=== PATIENT | female | born 1995 | race American Indian/Alaskan Native ===

== ENCOUNTER 2019-07-20 12:47 | Inpatient (IN) | payer OTHER, MEDICAID ==
[2019-07-20] MEDS ORDERED: Tranexamic Acid 1,000 MG in Sodium Chloride 0.9% 100 ML IV PRN (13:48)
[2019-07-20] MEDS ORDERED: Lactated Ringers 1,000 ML IV ONE (13:48)
[2019-07-20] MEDS ORDERED: Sodium Chloride 0.9% 10 ML Syringe FLUSH PRN (13:48)
[2019-07-20] MEDS ORDERED: Methylergonovine 0.2 MG/1 ML Amp IM PRN (13:48)
[2019-07-20] MEDS ORDERED: Lidocaine 1% 30 ML SDV INJECT PRN (13:48)
[2019-07-20] MEDS ORDERED: Misoprostol 400 MCG (4 X 100 MCG TAB) RECTAL PRN (13:48)
[2019-07-20] MEDS ORDERED: Carboprost Tromethamine 250 MCG/1 ML Amp IM PRN (13:48)
[2019-07-20] MEDS: Lactated Ringers 1,000 ML IV SCH ×2 (14:41→23:04)
[2019-07-20] MEDS: Oxytocin/Normal Saline 30 UNIT/500 ML BAG IV SCH (14:41)
[2019-07-20] MEDS: fentaNYL 100 MCG/2 ML SDV IVPUSH PRN ×2 (19:35→23:02)
[2019-07-20] MEDS: Ondansetron 4 MG/2 ML SDV IVPUSH PRN (23:54)
[2019-07-21] MEDS ORDERED: fentaNYL 100 MCG/2 ML SDV ONE ×2 (00:01→04:35)
[2019-07-21] MEDS ORDERED: EPINEPHrine 1 MG/1 ML Amp ONE ×2 (00:02→04:35)
[2019-07-21] MEDS ORDERED: Sodium Bicarbonate 4.2% 2.5 MEQ/5 ML SDV ONE ×2 (00:03→04:35)
--- NOTE | 2019-07-21 00:26 | PCM.SN ---
- Free Text/Narrative Note: Intrathecal. Sitting position, sterile prep and drape. 1% lidocaine w bicarb for skinwheal to L3 L4 interspace, introducer, 24 ga pencan x 1. Pos CSF, neg heme, neg parasthesia. 15 mcg pf sufenta, 35 mcg pf fentanyl, 0.1 ml 1:1000 pf epi, 04 ml pf ns and 6 mg of 0.75% pf bupivacaine injected after CSF aspiration. Pt to L lateral position. Procedure time 0000 to 0030
[2019-07-21] MEDS ORDERED: Famotidine 20 MG/2 ML SDV IVPUSH ONE (00:37)
[2019-07-21] MEDS: Lactated Ringers 1,000 ML IV SCH ×2 (00:38→04:40)
[2019-07-21] MEDS ORDERED: ePHEDrine 50 MG/ML SDV IVPUSH ONE (01:09)
[2019-07-21] MEDS: Ondansetron 4 MG/2 ML SDV IVPUSH PRN (04:22)
--- NOTE | 2019-07-21 04:53 | PCM.SN ---
- Free Text/Narrative Note: Intrathecal. Sitting position, sterile prep and drape. 1% lidocaine w bicarb for skinwheal to L3 L4 interspace, introducer, 24 ga pencan x 1. Pos CSF, neg heme, neg parasthesia. 15 mcg pf sufenta, 35 mcg pf fentanyl, 0.1 ml 1:1000 pf epi, 04 ml pf ns and 6 mg of 0.75% pf bupivacaine injected after CSF aspiration. Pt to L lateral position. Procedure time 0430 to 0500
[2019-07-21] MEDS ORDERED: Measles, Mumps & Rubella Vaccine 0.5 ML SDV SUBCUT ONE (07:24)
[2019-07-21] MEDS ORDERED: Simethicone 80 MG Tab.Chew PO PRN (07:24)
[2019-07-21] MEDS ORDERED: Oxytocin 10 Units/1 ML SDV IM PRN (07:24)
[2019-07-21] MEDS ORDERED: Diphtheria,Pertussis(Acell),Tetanus Vaccine 0.5 ML SDV IM ONE (07:24)
[2019-07-21] MEDS ORDERED: Benzocaine/Menthol 20%-0.5% Spray 56 GM Canister TOP PRN (07:24)
[2019-07-21] MEDS ORDERED: Sodium Chloride 0.9% 10 ML Syringe FLUSH PRN (07:24)
[2019-07-21] MEDS ORDERED: Zolpidem 5 MG Tab PO PRN (07:24)
[2019-07-21] MEDS: Oxytocin/Normal Saline 30 UNIT/500 ML BAG IV SCH (08:18)
--- NOTE | 2019-07-21 10:16 | PN ---
DATE: 07/20/2019 SUBJECTIVE: The patient's contractions are getting stronger. She is currently on Pitocin. The patient denies any headaches, visual changes, upper abdominal pain, nausea, vomiting, diarrhea, constipation, belly pain, cough, cold symptoms, runny nose, calf pain, or shortness of breath or chest pain. OBJECTIVE: heart tones in the 130s range, felt to be reactive and reassuring with accelerations noted. Tocometer reveals contractions on the average every 2 minutes. Vaginal exam reveals to be 1.5 cm, 75% effaced, negative 1 station, vertex suspected. Vital Signs: Last blood pressure 142/84, heart rate 112. ASSESSMENT: 1. Intrauterine at 38-3/7 weeks by 20-3/7 weeks' ultrasound with now preeclampsia with labs revealing a protein-creatinine ratio of 0.66. Other labs notable for a white cell count of 10.3, hemoglobin 8.7, platelets 304. HELLP labs were negative otherwise. 2. Fever antepartum, questionable cause. At this point in time, no obvious source has elicited itself. We will proceed with a rapid flu to further evaluate as this has been going around the community and further labs done. Urine drug screen was negative. Urine red cells and white cells were 0 to 5 per high-power field on her urine, not suggestive of a bladder infection. PLAN: I did discuss with the patient following clinically and closely at this point in time. We will watch for any signs and symptoms of heart rate concerns and watch her fever curve closely. The patient understands and agrees with the above treatment plan, and we will continue to follow clinically and closely. No signs or symptoms of severe preeclampsia noted at this point. [facility] /[id number]
--- NOTE | 2019-07-21 11:13 | PN ---
DATE: 07/21/2019 SUBJECTIVE: The patient is comfortable with some itching, status post intrathecal. I was called in for concerns with decelerations. OBJECTIVE: heart tones. Intrathecal and at 0015, started having decelerations approximately within 10 minutes of that down into the 70s to 90s with recovery over a 9-minute period. heart tones increasing to a baseline at the current time of dictation at around 150 with 1 acceleration seen. Tocometer reveals contractions every couple of minutes. Pitocin has been stopped. The patient has been repositioned, oxygen has been applied, and IV fluid bolus has been given. Vaginal exam per nurse was changed from pre- intrathecal at 4 cm to 6 cm, 95%, with bulging bag of water noted. INVESTIGATIONS: Labs returned from earlier, and influenza is negative. Protein- creatinine ratio was 0.66. Fevers noted earlier, last temperature 99.2, and then another recheck was 98.1. ASSESSMENT: 1. Intrauterine , now at 38-4/7 weeks by 20-3/7 weeks' ultrasound, complicated by preeclampsia. 2. Fever in the antepartum, that seems to be resolving with no obvious source, in a GBS negative. 3. G1, P0. complicated by being rubella nonimmune with anemia of with hemoglobin 8.7. PLAN: Due to concerns with heart tones, we will continue to follow clinically and closely at this point in time. May consider artificial rupture of membranes in the future. This was discussed with the patient and nurses as well and they will continue to follow closely at this point in time. [facility] /[id number]
--- NOTE | 2019-07-21 11:37 | PN ---
DATE: 07/21/2019 SUBJECTIVE: The patient is comfortable status post intrathecal. Itching minimally. OBJECTIVE: heart tones at current time of dictation in the 140s to 150s with acceleration seen. Tocometer reveals contractions every couple of minutes. Pitocin has been off. Vaginal exam reveals to be 6 to 7 cm, 100% effaced, 0 station, vertex suspected. Artificial rupture of membranes done after discussion with the patient yielding copious amounts of meconium-stained fluid. ASSESSMENT AND PLAN: Intrauterine , now 38 and 4/7 weeks, complicated by preeclampsia. Undergone NST, Pitocin augmentation, intrathecal and artificial rupture of membranes as above. May restart Pitocin if baby tolerates. We will continue to follow clinically and closely at this point in time. No signs or symptoms of severe preeclampsia at this point in time as well. [facility] /[id number]
--- NOTE | 2019-07-21 11:59 | PN ---
DATE: 07/21/2019 I did discuss with the patient meconium stained fluid, diagnosis, and prognosis. We will continue to follow clinically and closely at this point in time. [facility] /[id number]
--- NOTE | 2019-07-21 12:09 | DEL ---
DATE: 07/21/2019 PREOPERATIVE DIAGNOSES: 1. Intrauterine at 38-4/7 weeks by 20-3/7-week ultrasound. 2. Preeclampsia. 3. Group B Streptococcus negative. 4. Contractions. 5. Limited care. 6. Rubella nonimmune. 7. Anemia of , hemoglobin 8.7 upon admission. 8. Fever x1 antepartum. 9. Meconium-stained fluid. 10.Recurrent decelerations versus bradycardia in the second stage of labor prompting vacuum-assisted vaginal delivery. POSTOPERATIVE DIAGNOSES: 1. Intrauterine at 38-4/7 weeks by 20-3/7-week ultrasound - delivered. 2. Preeclampsia. 3. Group B Streptococcus negative. 4. Contractions. 5. Limited care. 6. Rubella nonimmune. 7. Anemia of , hemoglobin 8.7 upon admission. 8. Fever x1 antepartum. 9. Meconium-stained fluid. 10.Recurrent decelerations versus bradycardia in the second stage of labor prompting vacuum-assisted vaginal delivery. 11. hemorrhage with an estimated blood loss of 700 mL. 12.Uterine atony requiring Cytotec 800 mcg rectally. 13.Right-sided vaginal blood vessel bleeding requiring suture ligation. PROCEDURE PERFORMED: 1. On 07/20/2019, NST followed by Pitocin augmentation. 2. On 07/21/2019, artificial rupture of membranes followed by vacuum-assisted vaginal delivery with right-sided vaginal blood vessel suture ligation. ANESTHESIA/ANALGESIA: The patient did receive 2 intrathecals in the first stage of labor. ESTIMATED BLOOD LOSS: 700 mL. FINDINGS: Male, score 8 and 9, weight pending. SUMMARY OF EVENTS: The patient is a 24-year-old, G1, P0, intrauterine at 38-4/7 weeks by 20-3/7-week ultrasound, admitted with contractions and workup for preeclampsia that was positive with no severe features elicited. She did have a fever in the antepartum in the early first stage of labor, this was short lived; however, evaluations were done, no obvious source of fever was noted and it resolved thereafter. Influenza was negative as well as urinalysis. There was no uterine tenderness, calf pain, shortness of breath, chest pain, calf swelling or other concerns elicited. Subsequently, the patient underwent Pitocin augmentation, continued to have cervical change, and on the scientific illustrator of 07/21/2019, underwent artificial rupture of membranes. Received her 2 intrathecals in the first stage of labor. She was found to be complete and I was called to the room. Upon my entry in the room, I donned sterile gown and gloves. The patient started pushing with contractions. there were recurrent decelerations and nearing bradycardia and evans catheter was placed under sterile conditions yielding clear urine. vacuum assisted delivery was then discussed and I discussed risks, benefits, alternatives, and complications of vacuum assisted delivery and her and male partner agreed. with next contraction , Kiwi vacuum was then applied pumped up to green and with gentle pulling with patient pushing- vertex was delivered in a CELSA presentation with anterior-posterior shoulder and rest of the infant delivered without difficulty. vacumm disengaged after delivery of vertex. A vigorous cry was noted. Mouth and nares were suctioned. Cord was doubly clamped and cut, and infant was brought over to the warmer for resuscitation. Approximately 10 mL of cord blood was obtained for labs. Placenta was then delivered with gentle cord traction and fundal massage within 5 minutes. There was noted to be significant bleeding at that point in time and a quick evaluation did reveal right vaginal region with a blood vessel that was bleeding significantly. Subsequently, a 3-0 Vicryl was called for but was unavailable, so 2-0 Vicryl was then used and a [id number] stitch was applied over this vessel and bleeding significantly decreased. Thereafter, fundal massage ensued and continued bleeding was noted with a urine atony, 800 mcg of Cytotec was called for and given rectally, and at that time, bleeding slowed. Pitocin was put at 999 during this time period as well due to the bleeding. We will plan on checking a CBC approximately 6 hours from now at 1300 hours due to her anemia as above and significant blood loss. We will follow for signs and symptoms of anemia otherwise. Other perineum, vagina, and perirectal areas were then examined without any other tears or lacerations. Mother and are currently stable at the time of dictation. [facility] /[id number] [place]
--- NOTE | 2019-07-21 12:38 | OBOUT ---
DATE: 07/20/2019 DATE AND TIME OF NST: 07/20/2019, 1300 to 1320. REASON FOR NST: 1. Intrauterine at 38 and 3/7 weeks confirmed by 20 and 3/7 week ultrasound. 2. Gestational hypertension versus preeclampsia, workup being done. 3. GBS negative. 4. Contractions. 5. Limited care. 6. Rubella nonimmune. 7. G1, P0. NST INTERPRETATION: During this time period, heart tone at baseline is approximately 125 to 130 and there are at least two 15 x 15 beat per minute accelerations, making this strip reactive. It is also noted to be reassuring. Tocometer reveals potential of 5 contractions during this time period felt by patient. ASSESSMENT AND PLAN: 1. Nonstress test, reactive and reassuring. 2. Tocometer with contractions. PLAN: Blood pressure initially 144/100, recheck 139/95, another recheck 141/103. Heart rate is between 105 and 122. O2 sat is 98%. Patient feels afebrile. Patient due to her gestational hypertension with potential for preeclampsia was admitted with PIH panel to be done. She denies any headaches, visual changes, or upper abdominal pain or signs or symptoms of severe preeclampsia. Therefore, we will proceed with lab workup. Her vaginal exam done by nurse shows 1 cm thick, -3 station, vertex suspected, and we will proceed with Pitocin-type augmentation at this point in time. I did discuss plans with the patient. She understands and agrees. For H and P, she was seen yesterday in the clinic. This was fully updated. Exam notable for blood pressure changes as above. PHYSICAL EXAMINATION: HEENT: Head is atraumatic. EOMs intact. PERRLA. No scleral icterus. No obvious otorhinorrhea. Mucous membranes are moist. Neck: No obvious tenderness. Lungs: Clear to auscultation bilaterally. No increased work of breathing. Heart: S1 and S2. Regular rate and rhythm. Abdomen: Gravid. Michael's indeterminate. Nontender, nondistended. Bowel sounds positive. No organomegaly, pulsatile masses, or obvious hernias. No rebound, rigidity, or guarding. Genitourinary: Exam done by nurse as above. Extremities: No peripheral edema. Deep tendon reflexes 2-3/4 and bilaterally and symmetric in the lower extremities. Psychiatric: Mood and affect congruent. Judgment and insight intact. Skin: No cyanosis, clubbing, or jaundice. Pending are the PIH panel investigations. REVIEW OF SYSTEMS: Otherwise fully reviewed and felt to be noncontributory other than the above. PLAN: As above. We will proceed with Pitocin augmentation. Follow clinically and closely. Complete the workup for preeclampsia and watch for any signs and symptoms of severe preeclampsia. Labs did return. Hemoglobin was 8.7 with platelets of 304 and white cell count of 10.3. Due to her anemia with , we will continue to follow clinically and closely at this point in time as well. [facility] /[id number]
[2019-07-21] MEDS: Ibuprofen 800 MG Tab PO PRN ×2 (13:12→21:32)
[2019-07-21] MEDS: Ferrous Sulfate 325 MG Tab PO SCH (13:18)
[2019-07-21] MEDS: Prenatal Multivitamin with Calcium/Folic Acid/Iron Tab PO SCH (13:18)
[2019-07-21] MEDS: Acetaminophen 325 MG Tab PO PRN ×2 (17:16→21:31)
[2019-07-21] MEDS: Docusate Sodium 100 MG Cap PO PRN (21:31)
[2019-07-22] MEDS: Ibuprofen 800 MG Tab PO PRN ×3 (06:15→21:50)
[2019-07-22] MEDS: Ferrous Sulfate 325 MG Tab PO SCH (08:31)
[2019-07-22] MEDS: Acetaminophen 325 MG Tab PO PRN (08:31)
[2019-07-22] MEDS: Prenatal Multivitamin with Calcium/Folic Acid/Iron Tab PO SCH (08:31)
[2019-07-22] MEDS: Docusate Sodium 100 MG Cap PO PRN ×2 (08:31→21:50)
[2019-07-22] MEDS ORDERED: EPINEPHrine 1 MG/1 ML Amp ONE ×2 (10:21→10:25)
[2019-07-22] MEDS ORDERED: Sodium Bicarbonate 4.2% 2.5 MEQ/5 ML SDV ONE ×2 (10:21→10:25)
[2019-07-22] MEDS ORDERED: fentaNYL 100 MCG/2 ML SDV ITHECAL ONE ×2 (10:21→10:25)
--- NOTE | 2019-07-22 16:22 | PN ---
DATE: 07/22/2019 day #1. SUBJECTIVE: The patient is tolerating p.o., ambulating, urinating, passing flatus. She denies any chest pain, shortness of breath, or lightheadedness but notes her heart racing when she is moving around. OBJECTIVE: Vital Signs: Temperature 99.6, heart rate 121, blood pressure 126/71, respiratory rate 16. Lungs: Clear to auscultation. Heart: S1, S2. Regular rate and rhythm but with tachycardia noted over 120 after she got up and back to the bathroom. Abdomen: Firm uterus -2 below umbilicus. Extremities: Trace pedal edema. No calf pain. LABORATORY DATA: White cell count 16.5; hemoglobin 6.7 down from 7, yesterday at 8.7 predelivery; and platelets of 258. ASSESSMENT AND PLAN: day #1, status post spontaneous vaginal delivery in a G1, P0 with preeclampsia. One fever during the antepartum with negative workup and resolved thereafter with hemorrhage with an EBL 700 mL with now anemia and acute blood loss with tachycardia. We will proceed with 2 units of packed red blood cells. Did discuss with the patient risks, benefits, alternatives, and complications of blood transfusion. She understands, agrees, and wished to proceed. Verbal and written consent were obtained and questions were answered. We will proceed with 2 units of packed red blood cells, and as her active bleeding has decreased significantly, we will check a CBC tomorrow, sooner if need be. [facility] /[id number]
[2019-07-23] MEDS: Prenatal Multivitamin with Calcium/Folic Acid/Iron Tab PO SCH (08:07)
[2019-07-23] MEDS: Docusate Sodium 100 MG Cap PO PRN (08:07)
[2019-07-23] MEDS: Ferrous Sulfate 325 MG Tab PO SCH (08:07)
[2019-07-23] MEDS: Ibuprofen 800 MG Tab PO PRN (08:08)
[2019-07-23 08:31] VITALS: BP 129/86; PULSE 88
--- NOTE | 2019-07-25 09:19 | PCM.DEL ---
L & D Note - General Info Date of Service: 07/21/19 - Delivery Note Cervical Ripening Method: Oxytocin Episiotomy Type: None Vacuum Extractor Progress Note - Alternative Labor Strategies Considered Alternative Labor Strategies Considered:: Reports: Yes Strategies Considered:: Reports: Contraction Intensity Adequate, Position Changes Used to Facilitate Rotation & Descent, Empty Bladder, Rest Indications Considered:: Reports: Yes Indications:: Reports: Suspicion of Immediate or Potential Compromise Time Out:: Reports: Yes - Patient Prepared Patient Prepared:: Reports: Yes Informed Consent:: Reports: Verbal Risks: Reports: Yes Risks Include:: Reports: Laceration, Shoulder Dystocia, Maternal Injury, Other ( injury) Anesthesia/Analgesia Adequate:: Reports: Yes - Probability of Success High Probability of Success:: Reports: Yes Weight Estimated:: Reports: AGA Patient Diabetic:: Reports: No Pelvis Adequate:: Reports: Yes Asynclitic:: Reports: No - Application Time Maximum Application Time & Number of Pop-Offs Predetermined:: Reports: Yes ( please see nurses notes) Number of Times Cup Disengaged:: 0 Type of Vacuum Used:: Reports: Cup: Soft (kiwi vaccum) Vacuum Extraction: Successful - Exit Strategy Exit strategy available:: Reports: Yes and resuscitation teams readily available:: Reports: Yes Comments:: vtx splitting labia when vacuum applied-see delivery notes and nurses notes for timing and other details - General Info Date of Service: 07/21/19 - Patient Data Vitals - Most Recent: Last Vital Signs Temp 98.5 F 07/23/19 08:00 Pulse 88 07/23/19 08:00 Resp 16 07/23/19 08:00 BP 129/86 07/23/19 08:00 Pulse Ox 97 07/22/19 19:38 Weight - Most Recent: 74.843 kg Med Orders - Current: Current Medications Discontinued Medications Acetaminophen (Tylenol) 650 mg PO Q4H PRN PRN Reason: Pain (Mild 1-3) and fever Last Admin: 07/22/19 08:31 Dose: 650 mg Benzocaine/Menthol (Dermoplast Pain Relief [place]) 0 gm TOP Q4H PRN PRN Reason: Perineal comfort measures Last Admin: 07/21/19 17:20 Dose: 1 spray Carboprost Tromethamine (Hemabate Ds) 250 mcg IM ASDIRECTED PRN PRN Reason: HEMORRHAGE Diphtheria/Tetanus/Acell Pertussis (Adacel) 0.5 ml IM .ONCE ONE Stop: 07/21/19 07:25 Last Admin: 07/21/19 13:20 Dose: 0.5 ml Docusate Sodium (Colace) 100 mg PO BID PRN PRN Reason: Constipation Last Admin: 07/23/19 08:07 Dose: 100 mg Ephedrine Sulfate (Ephedrine Sulfate) 5 mg IVPUSH ONETIME ONE Stop: 07/21/19 01:10 Last Admin: 07/21/19 01:11 Dose: 5 mg Epinephrine HCl (Adrenalin) Confirm Administered Dose 1 mg .ROUTE .STK-MED ONE Stop: 07/21/19 00:03 Last Admin: 07/21/19 02:20 Dose: Not Given Epinephrine HCl (Adrenalin) Confirm Administered Dose 1 mg .ROUTE .STK-MED ONE Stop: 07/21/19 04:36 Last Admin: 07/21/19 04:55 Dose: Not Given Epinephrine HCl (Adrenalin) 0.1 mg .XX .STK-MED ONE Stop: 07/22/19 10:22 Epinephrine HCl (Adrenalin) 0.1 mg .XX .STK-MED ONE Stop: 07/22/19 10:26 Famotidine (Pepcid) 20 mg IVPUSH ONETIME ONE Stop: 07/21/19 00:38 Last Admin: 07/21/19 01:14 Dose: 20 mg Fentanyl (Sublimaze) 100 mcg IVPUSH Q1H PRN PRN Reason: Pain (moderate 4-6) Last Admin: 07/20/19 23:02 Dose: 100 mcg Fentanyl (Sublimaze) Confirm Administered Dose 100 mcg .ROUTE .STK-MED ONE Stop: 07/21/19 00:02 Last Admin: 07/21/19 02:19 Dose: Not Given Fentanyl (Sublimaze) Confirm Administered Dose 100 mcg .ROUTE .STK-MED ONE Stop: 07/21/19 04:36 Last Admin: 07/21/19 04:56 Dose: Not Given Fentanyl (Sublimaze) 35 mcg ITHECAL .STK-MED ONE Stop: 07/22/19 10:22 Fentanyl (Sublimaze) 35 mcg ITHECAL .STK-MED ONE Stop: 07/22/19 10:26 Ferrous Sulfate (Ferrous Sulfate) 325 mg PO WITHBREAKFAST [facility] Last Admin: 07/23/19 08:07 Dose: 325 mg Lactated Ringer's (Ringers, Lactated) 1,000 mls @ 125 mls/hr IV ASDIRECTED CIRILO Last Admin: 07/21/19 04:40 Dose: 125 mls/hr Oxytocin/Sodium Chloride (Pitocin In Ns 30 Unit/500 Ml) 30 unit in 500 mls @ 2 mls/hr IV TITRATE CIRILO; Protocol Last Titration: 07/21/19 11:25 Dose: 0 mls/hr Lactated Ringer's (Ringers, Lactated) 1,000 mls @ 500 mls/hr IV BOLUS ONE Stop: 07/20/19 15:47 Last Admin: 07/21/19 02:21 Dose: Not Given Tranexamic Acid 1,000 mg/ (Sodium Chloride) 110 mls @ 660 mls/hr IV ONETIME PRN PRN Reason: Bleeding Ibuprofen (Motrin) 800 mg PO Q8H PRN PRN Reason: Mild Pain or Fever Last Admin: 07/23/19 08:08 Dose: 800 mg Influenza Virus Vaccine (Afluria Quad (3yr Up)) 60 mcg IM .ONCE ONE Stop: 07/21/19 14:16 Last Admin: 07/21/19 17:17 Dose: 60 mcg Lidocaine HCl (Xylocaine-Mpf 1%) 30 ml INJECT ASDIRECTED PRN PRN Reason: Perineal Repair Measles/Mumps/Rubella Vaccine Live (M-M-R Ii Vaccine) 0.5 ml SUBCUT .ONCE ONE Stop: 07/21/19 07:25 Last Admin: 07/21/19 13:14 Dose: 0.5 ml Methylergonovine Maleate (Methergine) 0.2 mg IM ASDIRECTED PRN PRN Reason: Hemorrhage Misoprostol (Cytotec) 800 mcg RECTAL ASDIRECTED PRN PRN Reason: Hemorrhage Last Admin: 07/21/19 07:13 Dose: 800 mcg Ondansetron HCl (Zofran) 4 mg IVPUSH Q4H PRN PRN Reason: Nausea/Vomiting Last Admin: 07/21/19 04:22 Dose: 4 mg Oxytocin (Pitocin) 10 unit IM ONETIME PRN PRN Reason: Bleeding Prenat Multivit/[place]borne/Iron/Folic Ac ( Plus Iron) 1 each PO DAILY [facility] Last Admin: 07/23/19 08:07 Dose: 1 each Simethicone (Simethicone) 80 mg PO Q4H PRN PRN Reason: Gas Sodium Bicarbonate (Sodium Bicarbonate 4.2%) Confirm Administered Dose 2.5 meq .ROUTE .STK-MED ONE Stop: 07/21/19 00:04 Last Admin: 07/21/19 02:20 Dose: Not Given Sodium Bicarbonate (Sodium Bicarbonate 4.2%) Confirm Administered Dose 2.5 meq .ROUTE .STK-MED ONE Stop: 07/21/19 04:36 Last Admin: 07/21/19 04:56 Dose: Not Given Sodium Bicarbonate (Sodium Bicarbonate 4.2%) 0.5 meq .XX .STK-MED ONE Stop: 07/22/19 10:22 Sodium Bicarbonate (Sodium Bicarbonate 4.2%) 0.5 meq .XX .STK-MED ONE Stop: 07/22/19 10:26 Sodium Chloride (Saline Flush) 10 ml FLUSH ASDIRECTED PRN PRN Reason: Keep Vein Open Sodium Chloride (Saline Flush) 10 ml FLUSH ASDIRECTED PRN PRN Reason: Keep Vein Open Sufentanil Citrate (Sufenta) Confirm Administered Dose 50 mcg .ROUTE .STK-MED ONE Stop: 07/21/19 00:03 Last Admin: 07/21/19 02:20 Dose: Not Given Sufentanil Citrate (Sufenta) Confirm Administered Dose 50 mcg .ROUTE .STK-MED ONE Stop: 07/21/19 04:36 Last Admin: 07/21/19 04:56 Dose: Not Given Sufentanil Citrate (Sufenta) 15 mcg ITHECAL .STK-MED ONE Stop: 07/22/19 10:22 Sufentanil Citrate (Sufenta) 15 mcg ITHECAL .STK-MED ONE Stop: 07/22/19 10:26 Zolpidem Tartrate (Ambien) 5 mg PO BEDTIME PRN PRN Reason: Insomnia - Problem List Review Problem List Initiated/Reviewed/Updated: Yes
--- NOTE | 2019-07-25 12:21 | DISCH ---
ADMITTING DIAGNOSES: 1. Intrauterine at 38-3/7 weeks by 20-3/7 weeks' ultrasound. 2. Preeclampsia without severe features. 3. Group B Streptococcus negative. 4. Contractions. 5. Limited care. 6. Rubella nonimmune. 7. Anemia of , hemoglobin 8.7. 8. G1, P0. DISCHARGE DIAGNOSES: 1. Intrauterine at 38-4/7 weeks by 20-3/7 weeks' ultrasound- delivered. 2. Preeclampsia without severe features. 3. Group B Streptococcus negative. 4. Contractions. 5. Limited care. 6. Rubella nonimmune. 7. Anemia of , hemoglobin 8.7. 8. G1, P0. 9. Fever in the antepartum x1, resolved. This was in early first stage of labor. No obvious source and resolved thereafter. 10.Meconium-stained fluid. 11.Recurrent decelerations versus bradycardia in the second stage of labor requiring vacuum-assisted vaginal delivery. 12. hemorrhage with an estimated blood loss of 700 mL. 13.Uterine atony, requiring rectal Cytotec 800 mcg for treatment. 14.Right-sided vaginal blood vessel bleeding requiring suture ligation. 15.Anemia of acute blood loss, hemoglobin dropped down to 6.7, requiring 2 units of packed red blood cells with discharge hemoglobin being 8.5. PROCEDURES PERFORMED: NST followed by Pitocin augmentation, artificial rupture of membranes, and vacuum-assisted vaginal delivery with vessel ligation which was done on 07/21/2019. Procedure performed by Neo Welch MD. HISTORY OF PRESENT ILLNESS: Please see H and P. SUMMARY OF HOSPITAL COURSE: The patient was admitted on the above date with the above diagnoses. Had contractions, was noted to have preeclampsia with workup without severe features. She had one fever early in the first stage of labor. Workup was done and flu was negative as well as urinalysis. There were no other symptoms and this resolved. Subsequently had intrathecals placed and went on to have a vacuum-assisted vaginal delivery secondary to recurrent decelerations versus bradycardia in the second stage of labor yielding a male with score 8 and 9, weighing 3725 g (8 pounds 3 ounces). Please see delivery note for further details. day #1, please see progress note. The patient's hemoglobin did drop down to a low of 6.7. Subsequently, 2 units of packed red blood cells were given on 07/22/2019. DISCHARGE EVALUATION: The patient was tolerating p.o., was ambulating, urinating, passing flatus. She denies any headaches, visual changes, or upper abdominal pain. She denies any chest pain, shortness of breath, or lightheadedness. Vitals: Temperature 98.5, heart rate 88, blood pressure 129/86, respiratory rate 16. Lungs: Clear to auscultation bilaterally. Heart: S1, S2. Regular rate and rhythm. Genitourinary: Firm uterus around the umbilicus. Extremities: Trace pedal edema. No calf pain. White cell count 16.1 which has been stable and decreasing, hemoglobin 8.5, and platelets 287. CONDITION ON DISCHARGE COMPARED TO CONDITION ON ADMISSION: Improved. DISCHARGE INSTRUCTIONS: 1. Diet: As tolerated. 2. Activity: No lifting more than 20 pounds. No sit-ups straining, and pelvic rest for the next 6 weeks with immediate return fertility discussed. 3. Reasons to go to the emergency room were discussed with the patient in detail including, but not limited to, temperature greater than 100.4, foul- smelling discharge, red hot tender breasts, or increased vaginal bleeding. DISCHARGE MEDICATIONS: [id number] Tylenol or ibuprofen for pain; iron sulfate 325 b.i.d. x6 weeks, which she has at home, and vitamins x6 weeks. FOLLOWUP: I did discuss following up in 6 weeks as well as following up with her baby on 07/25/2019, and she is to call that morning to make an appointment. Did discuss the importance of followup and ramifications of not doing so as well as reasons to return or go to the emergency room in regard to her infant. She understands and agrees with the above treatment plan. [facility] /[id number]
== END 2019-07-23 11:45 | disposition home or self-care (01) | DRG 806 ==
LOC: DL.OBCHECK 12:47 → UNDOADMOB 13:28 → DL.OB 13:28 → OBSVTOIN 07-21 07:05
PROVIDERS: ADMIT Family Medicine; ATTEND Family Medicine
PROC: 10D07Z6 Extraction of Products of Conception, Vacuum, Via Natural or Artificial Opening (ICD-10-PCS; principal; 2019-07-21)
PROC: 30233N1 Transfusion of Nonautologous Red Blood Cells into Peripheral Vein, Percutaneous Approach (ICD-10-PCS; 2019-07-22)
DX: O14.04 Mild to moderate pre-eclampsia, complicating childbirth (principal); D62 Acute posthemorrhagic anemia; Z37.0 Single live birth; O99.02 Anemia complicating childbirth; O77.0 Labor and delivery complicated by meconium in amniotic fluid; O72.1 Other immediate postpartum hemorrhage; Z3A.38 38 weeks gestation of pregnancy
CPT/HCPCS: 36415; 36430; 59025; 59409; 80305-QW; 81001; 81003; 82565; 82570; 83615; 84156; 84450; 84460; 84520; 84550; 85027; 86850; 86900; 86901; 86920; 86922; 87804; 90471; 90686; 90707; 90715; A9270-GY; G0008; J0171; J2405; J2590; J3010; J3490; J7120; P9016

== ENCOUNTER 2019-12-01 00:19 | Emergency (ER) | payer BC, MEDICAID ==
[2019-12-01 00:35] VITALS: BP 131/76; PULSE 124
--- NOTE | 2019-12-01 01:05 | EDM.PDOC ---
ED HPI GENERAL MEDICAL PROBLEM - General Chief Complaint: Upper Extremity Injury/Pain Stated Complaint: SLIPPED ON STAIRS, HURT BROKE LEFT WRIST PER PT Time Seen by Provider: 12/01/19 00:20 Source of Information: Reports: Patient History Limitations: Reports: No Limitations - History of Present Illness INITIAL COMMENTS - FREE TEXT/NARRATIVE: ED with c/o pain to left wrist after falling and slipping down 3 stairs. Did not hit head . Admits ETOH tonight - Related Data Allergies Allergy/AdvReac Type Severity Reaction Status Date / Time No Known Allergies Allergy Verified 12/01/19 00:31 Home Meds: Home Meds . 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 ED EXAM, GENERAL - Physical Exam Exam: See Below Exam Limited By: No Limitations General Appearance: Alert, Mild Distress Eye Exam: Bilateral Eye: EOMI Ears: Normal External Exam Nose: Normal Inspection Throat/Mouth: Normal Inspection Head: Atraumatic, Normocephalic Neck: Normal Inspection Respiratory/Chest: No Respiratory Distress, Lungs Clear Peripheral Pulses: 2+: Radial (L) GI/Abdominal: Normal Bowel Sounds Back Exam: Normal Inspection Neurological: Alert, Oriented ED TRAUMA EXTREMITY PROCEDURES - Splinting Left Upper Extremity Pre-Procedure NV Status: Normal Post-Procedure NV Status: Normal Splint Material: Fiberglass Splint Design: Volar Provider Post-Splint Application NV Check: NV Status Normal Course - Vital Signs Last Recorded V/S: Last Vital Signs Temp 99.3 F 12/01/19 00:22 Pulse 124 H 12/01/19 00:22 Resp 16 12/01/19 00:22 BP 131/76 12/01/19 00:22 Pulse Ox 95 12/01/19 00:22 - Orders/Labs/Meds Meds: Medications Discontinued Medications Generic Name Dose Route Start Last Admin Trade Name Maryanne PRN Reason Stop Dose Admin Ibuprofen 600 mg 12/01/19 01:20 12/01/19 01:32 Motrin PO 12/01/19 01:21 600 mg ONETIME ONE Administration - Radiology Interpretation Free Text/Narrative:: fx left wrist, see report Departure - Departure Time of Disposition: 01:05 Disposition: Home, Self-Care 01 Condition: Good Clinical Impression: Left wrist fracture Qualifiers: Encounter type: initial encounter Fracture type: closed Qualified Code(s): S62.102A - Fracture of unspecified carpal bone, left wrist, initial encounter for closed fracture - Discharge Information *PRESCRIPTION DRUG MONITORING PROGRAM REVIEWED*: No *COPY OF PRESCRIPTION DRUG MONITORING REPORT IN PATIENT SHEFALI: No Instructions: Wrist Fracture Treated With Immobilization, [id number] Forms: ED Department Discharge Additional Instructions: ice elevate rest follow up ortho clinic in [place] on thursday, call to schedule appointment for cast placement, follow up compacted, angulated distal radius and styloid fracture of left wrist. alternate tylenol 650mg and ibuprofen 650mg every 4 hours as needed for discomfort Sepsis Event Note - Evaluation Sepsis Screening Result: No Definite Risk - Focused Exam Vital Signs: Vital Signs Temp Pulse Resp BP Pulse Ox 12/01/19 00:22 99.3 F 124 H 16 131/76 95 Date Exam was Performed: 12/01/19 Time Exam was Performed: 06:46
[2019-12-01] MEDS ORDERED: Ibuprofen 600 MG Tab PO ONE (01:20)
== END 2019-12-01 01:36 | disposition home or self-care (01) ==
LOC: DL.ED 00:19
DX: S52.502A Unspecified fracture of the lower end of left radius, initial encounter for closed fracture (principal); S52.612A Displaced fracture of left ulna styloid process, initial encounter for closed fracture; W10.8XXA Fall (on) (from) other stairs and steps, initial encounter
CPT/HCPCS: 29125; 73070; 73110; 99283; A9270

== ENCOUNTER 2021-01-09 16:24 | Emergency (ER) | payer MEDICAID, OTHER ==
[2021-01-09] MEDS ORDERED: Ondansetron 4 MG Tab.DIS PO ONE (16:25)
[2021-01-09] MEDS ORDERED: Acetaminophen/HYDROcodone 325-10 MG Tab PO ONE (16:25)
[2021-01-09] MEDS ORDERED: HYDROmorphone 1 MG/ML Syringe IVPUSH ONE (17:02)
[2021-01-09] MEDS ORDERED: Lactated Ringers 1,000 ML IV ONE ×2 (17:02→19:14)
[2021-01-09] MEDS ORDERED: diphenhydrAMINE 50 MG/ML SDV IVPUSH ONE (17:02)
--- NOTE | 2021-01-09 17:02 | EDM.PDOC ---
ED HPI GENERAL MEDICAL PROBLEM - General Chief Complaint: Abdominal Pain Stated Complaint: AMBULANCE Time Seen by Provider: 01/09/21 17:01 Source of Information: Reports: Patient History Limitations: Reports: No Limitations - History of Present Illness INITIAL COMMENTS - FREE TEXT/NARRATIVE: Patient comes emergency department today from the [facility] clinic for further evaluation of abdominal pain nausea and vomiting. For the past 3 to 4 days the patient has right upper quadrant pain nausea and vomiting. She was seen up at [facility] earlier today she had a normal amylase and lipase and right upper quadrant pain nausea and vomiting and she was sent to the emergency department for further evaluation of acute pancreatitis after discussion with the provider from [facility] clinic who contacted me with the above concerns. Patient arrives complaining of right upper quadrant pain nausea and vomiting. No diarrhea. She has a history of 3 to 4 days of these symptomology. She has no fever no chills. No chest pain no shortness of breath or difficulty breathing. No cough or congestion. No hematuria dysuria urinary frequency. No black or tarry stools. No flank pain. She does feel lightheaded upon standing. She does admit to history of alcohol use but nothing recently. She has never had pancreatitis in the past. Upper Abdomen Pain Score (Numeric/FACES): 5 - Related Data Allergies Allergy/AdvReac Type Severity Reaction Status Date / Time No Known Allergies Allergy Verified 01/09/21 16:37 Home Meds: Home Meds . 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 History: Reports: None Neurological History: Reports: None Psychiatric History: Reports: Anxiety, Depression Endocrine/Metabolic History: Reports: None Hematologic History: Reports: Anemia Oncologic (Cancer) History: Reports: None Dermatologic History: Reports: None - Infectious Disease History Infectious Disease History: Reports: Chicken Pox - Past Surgical History Head Surgeries/Procedures: Reports: None Musculoskeletal Surgical History: Reports: Other (See Below) Other Musculoskeletal Surgeries/Procedures:: arm Social & Family History - Family History Family Medical History: No Pertinent Family History - Tobacco Use Tobacco Use Status *Q: Current Every Day Tobacco User Years of Tobacco use: 1 Packs/Tins Daily: 0.5 Second Hand Smoke Exposure: No - Caffeine Use Caffeine Use: Reports: Coffee, Soda - Recreational Drug Use Recreational Drug Use: No - Sexual History Sexual History: Reports: Sexually Active - Living Situation & Occupation Living situation: Reports: with Family ED ROS GENERAL - Review of Systems Review Of Systems: Comprehensive ROS is negative, except as noted in HPI. ED EXAM, GI/ABD - Physical Exam Exam: See Below Exam Limited By: No Limitations General Appearance: Alert, WD/WN, Mild Distress Eyes: Bilateral: EOMI Ears: Normal External Exam Nose: Normal Inspection Throat/Mouth: No: Normal Inspection (oral mucos is quite dry. ) Head: Atraumatic, Normocephalic Neck: Normal Inspection Respiratory/Chest: No Respiratory Distress, Lungs Clear, No Accessory Muscle Use, Chest Non-Tender Cardiovascular: Normal Peripheral Pulses, Regular Rate, Rhythm GI/Abdominal Exam: Normal Bowel Sounds, Soft, No Distention, Tender (She is exquisitely tender in the right upper quadrant with a positive Laughlin sign.). No: Distended, Guarding, Rigid, Rebound Back Exam: Normal Inspection Extremities: Normal Inspection, No Pedal Edema Neurological: Alert, Oriented, Normal Cognition, No Motor/Sensory Deficits Psychiatric: Normal Affect, Normal Mood Skin Exam: Warm, Dry, Intact, Normal Color Course - Vital Signs Last Recorded V/S: Last Vital Signs Temp 97.4 F 01/09/21 20:19 Pulse 111 H 01/09/21 20:19 Resp 20 01/09/21 20:19 BP 90/64 01/09/21 20:19 Pulse Ox 97 01/09/21 20:19 - Orders/Labs/Meds Labs: Laboratory Tests 01/09/21 01/09/21 01/09/21 Range/Units 17:13 17:13 17:13 WBC 7.3 (5.0-10.0) 10^3/uL RBC 4.15 L (4.2-5.4) 10^6/uL Hgb 11.8 L D (12.0-16.0) g/dL Hct 37.5 (37.0-47.0) % MCV 90.4 D (80-100) fL MCH 28.4 (27.0-34.0) pg MCHC 31.5 L (33.0-35.0) g/dL Plt Count 391 D (150-450) 10^3/uL Neut % (Auto) 66.5 (42.2-75.2) % Lymph % (Auto) 26.4 (20.5-50.1) % Griggs % (Auto) 6.2 (2-8) % Eos % (Auto) 0.5 L (1.0-3.0) % Baso % (Auto) 0.4 (0.0-1.0) % Sodium 142 (136-145) mmol/L Potassium 4.1 (3.5-5.1) mmol/L Chloride 107 (98-107) mmol/L Carbon Dioxide 22 (21-32) mmol/L Anion Gap 17.1 H (7-13) mEq/L BUN 12 (7-18) mg/dL Creatinine 0.78 (0.55-1.02) mg/dL Est Cr Clr Drug Dosing 91.21 mL/min Estimated GFR (MDRD) > 60 BUN/Creatinine Ratio 15.4 (No establ ref range) Glucose 105 H (70-99) mg/dL Lactic Acid 1.8 (0.4-2.0) mmol/L Calcium 8.7 (8.5-10.1) mg/dL Total Bilirubin 0.6 (0.2-1.0) mg/dL AST 55 H (15-37) U/L ALT 69 H (14-59) U/L Alkaline Phosphatase 65 (46-116) U/L C-Reactive Protein 0.7 (0.0-0.9) mg/dL Total Protein 6.8 (6.4-8.2) g/dL Albumin 3.3 L (3.4-5.0) g/dL Globulin 3.5 Albumin/Globulin Ratio 0.94 Lipase 55 L (73-393) U/L Urine Color (YELLOW) Urine Appearance (CLEAR) Urine pH (5.0-9.0) Ur Specific Sigel (1.005-1.030) Urine Protein (NEGATIVE) Urine Glucose (UA) (NEGATIVE) Urine Ketones (NEGATIVE) Urine Occult Blood (NEGATIVE) Urine Nitrite (NEGATIVE) Urine Bilirubin (NEGATIVE) Urine Urobilinogen (0.2-1.0) mg/dL Ur Leukocyte Esterase (NEGATIVE) Urine RBC /HPF Urine WBC (0-5/HPF) /HPF Ur Epithelial Cells (NOT SEEN) /HPF Amorphous Sediment (NOT SEEN) /HPF Urine Bacteria (0-FEW/HPF) /HPF Urine Mucus (NOT SEEN) /LPF Urine HCG, Qual Urine Opiates Screen (NEGATIVE) Ur Oxycodone Screen (NEGATIVE) Urine Methadone Screen (NEGATIVE) Ur Barbiturates Screen (NEGATIVE) U Tricyclic Antidepress (NEGATIVE) Ur Phencyclidine Scrn (NEGATIVE) Ur Amphetamine Screen (NEGATIVE) U Methamphetamines Scrn (NEGATIVE) Urine MDMA Screen (NEGATIVE) U Benzodiazepines Scrn (NEGATIVE) Urine Cocaine Screen (NEGATIVE) U Marijuana (THC) Screen (NEGATIVE) 01/09/21 01/09/21 01/09/21 Range/Units 18:52 18:52 18:52 WBC (5.0-10.0) 10^3/uL RBC (4.2-5.4) 10^6/uL Hgb (12.0-16.0) g/dL Hct (37.0-47.0) % MCV (80-100) fL MCH (27.0-34.0) pg MCHC (33.0-35.0) g/dL Plt Count (150-450) 10^3/uL Neut % (Auto) (42.2-75.2) % Lymph % (Auto) (20.5-50.1) % Griggs % (Auto) (2-8) % Eos % (Auto) (1.0-3.0) % Baso % (Auto) (0.0-1.0) % Sodium (136-145) mmol/L Potassium (3.5-5.1) mmol/L Chloride (98-107) mmol/L Carbon Dioxide (21-32) mmol/L Anion Gap (7-13) mEq/L BUN (7-18) mg/dL Creatinine (0.55-1.02) mg/dL Est Cr Clr Drug Dosing mL/min Estimated GFR (MDRD) BUN/Creatinine Ratio (No establ ref range) Glucose (70-99) mg/dL Lactic Acid (0.4-2.0) mmol/L Calcium (8.5-10.1) mg/dL Total Bilirubin (0.2-1.0) mg/dL AST (15-37) U/L ALT (14-59) U/L Alkaline Phosphatase (46-116) U/L C-Reactive Protein (0.0-0.9) mg/dL Total Protein (6.4-8.2) g/dL Albumin (3.4-5.0) g/dL Globulin Albumin/Globulin Ratio Lipase (73-393) U/L Urine Color Dark yellow (YELLOW) Urine Appearance Slightly cloudy (CLEAR) Urine pH 6.0 (5.0-9.0) Ur Specific Sigel >= 1.030 (1.005-1.030) Urine Protein 100 H (NEGATIVE) Urine Glucose (UA) Negative (NEGATIVE) Urine Ketones Negative (NEGATIVE) Urine Occult Blood Negative (NEGATIVE) Urine Nitrite Negative (NEGATIVE) Urine Bilirubin Small H (NEGATIVE) Urine Urobilinogen 1.0 (0.2-1.0) mg/dL Ur Leukocyte Esterase Negative (NEGATIVE) Urine RBC 0-5 /HPF Urine WBC 0-5 (0-5/HPF) /HPF Ur Epithelial Cells Moderate H (NOT SEEN) /HPF Amorphous Sediment Few (NOT SEEN) /HPF Urine Bacteria Few (0-FEW/HPF) /HPF Urine Mucus Moderate H (NOT SEEN) /LPF Urine HCG, Qual Negative Urine Opiates Screen Positive H (NEGATIVE) Ur Oxycodone Screen Negative (NEGATIVE) Urine Methadone Screen Negative (NEGATIVE) Ur Barbiturates Screen Negative (NEGATIVE) U Tricyclic Antidepress Negative (NEGATIVE) Ur Phencyclidine Scrn Negative (NEGATIVE) Ur Amphetamine Screen Negative (NEGATIVE) U Methamphetamines Scrn Negative (NEGATIVE) Urine MDMA Screen Negative (NEGATIVE) U Benzodiazepines Scrn Negative (NEGATIVE) Urine Cocaine Screen Negative (NEGATIVE) U Marijuana (THC) Screen Negative (NEGATIVE) Meds: Medications Discontinued Medications Generic Name Dose Route Start Last Admin Trade Name Maryanne PRN Reason Stop Dose Admin Hydrocodone Bitart/Acetaminophen Confirm 01/09/21 20:27 01/09/21 20:42 Acetaminophen/Hydrocodone 325-10 Mg Tab Administered 01/09/21 20:28 Not Given Dose 3 tab .ROUTE .STK-MED ONE Diphenhydramine HCl 25 mg 01/09/21 17:02 01/09/21 17:19 Diphenhydramine 50 Mg/Ml Sdv IVPUSH 01/09/21 17:03 25 mg ONETIME ONE Administration Hydromorphone HCl 1 mg 01/09/21 17:02 01/09/21 17:20 Hydromorphone 1 Mg/Ml Syringe IVPUSH 01/09/21 17:03 1 mg ONETIME ONE Administration Lactated Ringer's 1,000 mls @ 1,000 mls/hr 01/09/21 17:02 01/09/21 17:20 Ringers, Lactated IV 01/09/21 18:01 1,000 mls/hr .BOLUS ONE Administration Lactated Ringer's 1,000 mls @ 1,000 mls/hr 01/09/21 19:14 01/09/21 19:21 Ringers, Lactated IV 01/09/21 20:13 1,000 mls/hr .BOLUS ONE Administration Ondansetron HCl 4 mg 01/09/21 18:56 01/09/21 19:02 Ondansetron 4 Mg/2 Ml Sdv IV 01/09/21 18:57 4 mg ONETIME ONE Administration Ondansetron HCl Confirm 01/09/21 20:27 01/09/21 20:42 Ondansetron 4 Mg Tab.Dis Administered 01/09/21 20:28 Not Given Dose 12 [facility] - Re-Assessments/Exams Free Text/Narrative Re-Assessment/Exam: IV had been previously established. IV 1 L LR wide open. Benadryl for nausea. Dilaudid for abdominal pain 1 mg. Laboratory evaluation with a normal CBC, WBC 7.3, hemoglobin 11.8, platelets 391. CMP with a mild elevated AST at 55, ALT 69, T bili normal at 0.6. Normal creatinine. C-reactive protein is negative at 0.7. Her lipase is 55. This discounts the concern for pancreatitis. She has quite concentrated urine with 100 protein. No ketones. Noninfectious appearing. Her hCG is negative. Patient did have a little bit more nausea and vomiting which was resolved with Zofran. Her pain is completely resolved after the above therapy. Reexamination of the abdomen shows a soft nontender nondistended abdomen. Negative Laughlin sign. This is really the sequelae of biliary colic. I see no signs that the patient needs emergent evaluation of her gallbladder such as fever elevated T bili or leukocytosis. We will treat her symptomatically at this time and have her follow-up closely in the primary care setting for an ultrasound of her gallbladder. Anything new or worse she is to recheck and we will consider ultrasound of her gallbladder at that time. Discharge directions as below are explained to the patient she was comfortable with this plan and her questions were answered. Departure - Departure Time of Disposition: 18:42 Disposition: Home, Self-Care 01 Clinical Impression: Biliary colic - Discharge Information Instructions: Biliary Colic, Adult, Nausea and Vomiting, Adult, [id number], Abdominal Pain, Adult, [id number], Gallbladder Eating Plan Forms: ED Department Discharge Additional Instructions: Increase fluids over the next few days. Tylenol and or Ibuprofen as needed for pain. Diet without fat rich or spicy foods. Simple diet. Bananas applesauce toast and yogurt If pain not controlled with above. [place] 1 tablet every 4 hrs with food as needed for pain. Caution sedation. RX given to the patient. Contact your PCP tomorrow to get a gallbladder US as an outpatient. Return to the ED if new or worsening symptoms. Sepsis Event Note (ED) - Evaluation Sepsis Screening Result: No Definite Risk - Focused Exam Vital Signs: Vital Signs Temp Pulse Resp BP Pulse Ox 01/09/21 20:19 97.4 F 111 H 20 90/64 97
[2021-01-09 17:37] LABS: ANION GAP 17.1 mEq/L (7-13); CHLORIDE,CL 107 mmol/L (98-107); SODIUM,NA 142 mmol/L (136-145)
[2021-01-09] MEDS ORDERED: Ondansetron 4 MG/2 ML SDV IV ONE (18:56)
[2021-01-09 20:20] VITALS: BP 90/64; PULSE 111
[2021-01-09] MEDS ORDERED: Acetaminophen/HYDROcodone 325-10 MG Tab ONE (20:27)
[2021-01-09] MEDS ORDERED: Ondansetron 4 MG Tab.DIS ONE (20:27)
== END 2021-01-09 20:45 | disposition home or self-care (01) ==
LOC: DL.ED 16:24
DX: K80.50 Calculus of bile duct without cholangitis or cholecystitis without obstruction (principal); Z72.0 Tobacco use
CPT/HCPCS: 36415; 80053; 80305; 81001; 81025; 83605; 83690; 85025; 86140; 96374; 96375; 99284; A9270; J1170; J1200; J2405; J7120; 99283

== ENCOUNTER 2021-01-12 15:17 | Emergency (ER) | payer MEDICAID ==
[2021-01-12 15:54] VITALS: BP 105/88; PULSE 114
== END 2021-01-12 16:04 | disposition left against medical advice (07) ==
LOC: DL.ED 15:17
DX: R00.0 Tachycardia, unspecified (principal); Z53.21 Procedure and treatment not carried out due to patient leaving prior to being seen by health care provider

== ENCOUNTER 2021-01-18 09:40 | Emergency (ER) | payer MEDICAID ==
[2021-01-18 09:57] VITALS: BP 130/70; PULSE 120
--- NOTE | 2021-01-18 10:00 | EDM.PDOC ---
ED HPI GENERAL MEDICAL PROBLEM - General Stated Complaint: STOMACH PAIN Time Seen by Provider: 01/18/21 09:50 Source of Information: Reports: Patient History Limitations: Reports: No Limitations - History of Present Illness INITIAL COMMENTS - FREE TEXT/NARRATIVE: This 25 yo female patient reports to the ED due to left upper quadrant abdominal pain. The patient reports she has had similar symptoms over the past 2-3 weeks, but symptoms got worse last night to the point that the patient reports difficulties breathing. The patient reports she was seen at the [facility] for her symptoms, had an ultrasound on her gallbladder and is supposed to be having some additional studies. The patient does not know of any lab results and is not sure what additional studies may be ordered. The patient also reports she has been having vision changes in her left eye every other day for the past week. The patient also reports she has mentioned these symptoms, but nothing has been done for them. Onset: Other Duration: Week(s): (2-3 ), Intermittent Location: Reports: Abdomen (LUQ) Quality: Reports: Ache, Sharp Severity: Moderate Improves with: Reports: None Worsens with: Reports: None Context: Reports: Other Associated Symptoms: Reports: No Other Symptoms Left Lower Abdomen Pain Score (Numeric/FACES): 5 - Related Data Allergies Allergy/AdvReac Type Severity Reaction Status Date / Time No Known Allergies Allergy Verified 01/18/21 09:57 Home Meds: Home Meds . 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: Musculoskeletal History: Reports: None Neurological History: Reports: None Psychiatric History: Reports: Anxiety, Depression Endocrine/Metabolic History: Reports: None Hematologic History: Reports: Anemia Oncologic (Cancer) History: Reports: None Dermatologic History: Reports: None - Infectious Disease History Infectious Disease History: Reports: Chicken Pox - Past Surgical History Head Surgeries/Procedures: Reports: None Musculoskeletal Surgical History: Reports: Other (See Below) Other Musculoskeletal Surgeries/Procedures:: arm Social & Family History - Family History Family Medical History: No Pertinent Family History - Caffeine Use Caffeine Use: Reports: Soda - Sexual History Sexual History: Reports: Sexually Active - Living Situation & Occupation Living situation: Reports: with Family ED ROS GENERAL - Review of Systems Review Of Systems: Comprehensive ROS is negative, except as noted in HPI. ED EXAM, GI/ABD - Physical Exam Exam: See Below Exam Limited By: No Limitations General Appearance: Alert, WD/WN, Moderate Distress Eyes: Bilateral: Normal Appearance, EOMI Ears: Normal External Exam, Normal Canal, Hearing Grossly Normal, Normal TMs Nose: Normal Inspection, Normal Mucosa, No Blood Throat/Mouth: Normal Inspection, Normal Lips, Normal Teeth, Normal Gums, Normal Oropharynx, Normal Voice, No Airway Compromise Head: Atraumatic, Normocephalic Neck: Normal Inspection, Supple, Non-Tender, Full Range of Motion Respiratory/Chest: No Respiratory Distress, Lungs Clear, Normal Breath Sounds, No Accessory Muscle Use, Chest Non-Tender Cardiovascular: Normal Peripheral Pulses, Regular Rate, Rhythm, No Edema, No Gallop, No JVD, No Murmur, No Rub GI/Abdominal Exam: Normal Bowel Sounds, Tender (epigastric area and left upper quadrant) (Female) Exam: Deferred Rectal (Female) Exam: Deferred Back Exam: Normal Inspection, Full Range of Motion, NT Extremities: Normal Inspection, Normal Range of Motion, Non-Tender, Normal Capillary Refill, No Pedal Edema Neurological: Alert, Oriented, CN II-XII Intact, Normal Cognition, Normal Gait, Normal Reflexes, No Motor/Sensory Deficits Psychiatric: Normal Affect, Normal Mood Skin Exam: Warm, Dry, Intact, Normal Color, No Rash Lymphatic: No Adenopathy #1 Interpretation EKG Date: 01/18/21 Time: 10:04 Rhythm: Other (sinus Tach) [place]: Normal P-Wave: Present QRS: Normal ST-T: Normal QT: Normal Comparison: NA - No Prior EKG Course - Vital Signs Last Recorded V/S: Last Vital Signs Temp 98.0 F 01/18/21 09:55 Pulse 120 H 01/18/21 09:55 Resp 18 01/18/21 09:55 BP 130/70 01/18/21 09:55 Pulse Ox 100 01/18/21 09:55 - Orders/Labs/Meds Orders: Active Orders 24 hr Category Date Time Status EKG Documentation Completion [RC] STAT Care 01/18/21 09:53 Active Labs: Laboratory Tests 0701/18/21 01/18/21 Range/Units 09:45 09:45 09:45 WBC (5.0-10.0) 10^3/uL RBC (4.2-5.4) 10^6/uL Hgb (12.0-16.0) g/dL Hct (37.0-47.0) % MCV (80-100) fL MCH (27.0-34.0) pg MCHC (33.0-35.0) g/dL Plt Count (150-450) 10^3/uL Neut % (Auto) (42.2-75.2) % Lymph % (Auto) (20.5-50.1) % [place] % (Auto) (2-8) % Eos % (Auto) (1.0-3.0) % Baso % (Auto) (0.0-1.0) % Sodium (136-145) mmol/L Potassium (3.5-5.1) mmol/L Chloride (98-107) mmol/L Carbon Dioxide (21-32) mmol/L Anion Gap (7-13) mEq/L BUN (7-18) mg/dL Creatinine (0.55-1.02) mg/dL Est Cr Clr Drug Dosing mL/min Estimated GFR (MDRD) BUN/Creatinine Ratio (No establ ref range) Glucose (70-99) mg/dL Calcium (8.5-10.1) mg/dL Total Bilirubin (0.2-1.0) mg/dL AST (15-37) U/L ALT (14-59) U/L Alkaline Phosphatase (46-116) U/L Troponin I High Sens (<=51) pg/mL Total Protein (6.4-8.2) g/dL Albumin (3.4-5.0) g/dL Globulin Albumin/Globulin Ratio Amylase (25-115) U/L Lipase (73-393) U/L Urine Color Yellow (YELLOW) Urine Appearance Clear (CLEAR) Urine pH 7.0 (5.0-9.0) Ur Specific [place] 1.025 (1.005-1.030) Urine Protein Trace H (NEGATIVE) Urine Glucose (UA) Negative (NEGATIVE) Urine Ketones Negative (NEGATIVE) Urine Occult Blood Negative (NEGATIVE) Urine Nitrite Negative (NEGATIVE) Urine Bilirubin Negative (NEGATIVE) Urine Urobilinogen 1.0 (0.2-1.0) mg/dL Ur Leukocyte Esterase Negative (NEGATIVE) Urine RBC Not seen /HPF Urine WBC 0-5 (0-5/HPF) /HPF Ur Epithelial Cells Many H (NOT SEEN) /HPF Urine Bacteria Few (0-FEW/HPF) /HPF Urine Mucus Many H (NOT SEEN) /LPF Urine HCG, Qual Negative Urine Opiates Screen Negative (NEGATIVE) Ur Oxycodone Screen Negative (NEGATIVE) Urine Methadone Screen Negative (NEGATIVE) Ur Barbiturates Screen Negative (NEGATIVE) U Tricyclic Antidepress Negative (NEGATIVE) Ur Phencyclidine Scrn Negative (NEGATIVE) Ur Amphetamine Screen Negative (NEGATIVE) U Methamphetamines Scrn Negative (NEGATIVE) Urine MDMA Screen Negative (NEGATIVE) U Benzodiazepines Scrn Negative (NEGATIVE) Urine Cocaine Screen Negative (NEGATIVE) U Marijuana (THC) Screen Negative (NEGATIVE) 01/18/21 01/18/21 Range/Units 10:04 10:04 WBC 6.8 (5.0-10.0) 10^3/uL RBC 4.48 (4.2-5.4) 10^6/uL Hgb 12.3 (12.0-16.0) g/dL Hct 39.3 (37.0-47.0) % MCV 87.7 (80-100) fL MCH 27.5 (27.0-34.0) pg MCHC 31.3 L (33.0-35.0) g/dL Plt Count 364 (150-450) 10^3/uL Neut % (Auto) 60.6 (42.2-75.2) % Lymph % (Auto) 28.7 (20.5-50.1) % [place] % (Auto) 7.6 (2-8) % Eos % (Auto) 2.1 (1.0-3.0) % Baso % (Auto) 1.0 (0.0-1.0) % Sodium 141 (136-145) mmol/L Potassium 4.2 (3.5-5.1) mmol/L Chloride 106 (98-107) mmol/L Carbon Dioxide 24 (21-32) mmol/L Anion Gap 15.2 H (7-13) mEq/L BUN 12 (7-18) mg/dL Creatinine 0.76 (0.55-1.02) mg/dL Est Cr Clr Drug Dosing 93.61 mL/min Estimated GFR (MDRD) > 60 BUN/Creatinine Ratio 15.8 (No establ ref range) Glucose 116 H (70-99) mg/dL Calcium 8.3 L (8.5-10.1) mg/dL Total Bilirubin 0.6 (0.2-1.0) mg/dL AST 59 H (15-37) U/L ALT 88 H (14-59) U/L Alkaline Phosphatase 76 (46-116) U/L Troponin I High Sens 61 H* (<=51) pg/mL Total Protein 6.5 (6.4-8.2) g/dL Albumin 3.4 (3.4-5.0) g/dL Globulin 3.1 Albumin/Globulin Ratio 1.1 Amylase 24 L (25-115) U/L Lipase 117 (73-393) U/L Urine Color (YELLOW) Urine Appearance (CLEAR) Urine pH (5.0-9.0) Ur Specific [place] (1.005-1.030) Urine Protein (NEGATIVE) Urine Glucose (UA) (NEGATIVE) Urine Ketones (NEGATIVE) Urine Occult Blood (NEGATIVE) Urine Nitrite (NEGATIVE) Urine Bilirubin (NEGATIVE) Urine Urobilinogen (0.2-1.0) mg/dL Ur Leukocyte Esterase (NEGATIVE) Urine RBC /HPF Urine WBC (0-5/HPF) /HPF Ur Epithelial Cells (NOT SEEN) /HPF Urine Bacteria (0-FEW/HPF) /HPF Urine Mucus (NOT SEEN) /LPF Urine HCG, Qual Urine Opiates Screen (NEGATIVE) Ur Oxycodone Screen (NEGATIVE) Urine Methadone Screen (NEGATIVE) Ur Barbiturates Screen (NEGATIVE) U Tricyclic Antidepress (NEGATIVE) Ur Phencyclidine Scrn (NEGATIVE) Ur Amphetamine Screen (NEGATIVE) U Methamphetamines Scrn (NEGATIVE) Urine MDMA Screen (NEGATIVE) U Benzodiazepines Scrn (NEGATIVE) Urine Cocaine Screen (NEGATIVE) U Marijuana (THC) Screen (NEGATIVE) Meds: Medications Discontinued Medications Generic Name Dose Route Start Last Admin Trade Name Freq PRN Reason Stop Dose Admin Hydromorphone HCl 0.5 mg 01/18/21 10:30 01/18/21 10:47 Hydromorphone 0.5 Mg/0.5 Ml Syringe IVPUSH 01/18/21 10:31 0.5 mg ONETIME ONE Administration Sodium Chloride 1,000 mls @ 999 mls/hr 01/18/21 10:30 01/18/21 10:47 Normal Saline IV 01/18/21 11:30 999 mls/hr .BOLUS ONE Administration Iopamidol 100 ml 01/18/21 10:55 01/18/21 11:13 Iopamidol 612 Mg/Ml 100 Ml Bottle IVPUSH 01/18/21 10:56 75 ml ONETIME ONE Administration Ondansetron HCl 4 mg 01/18/21 10:30 01/18/21 10:47 Ondansetron 4 Mg/2 Ml Sdv IVPUSH 01/18/21 10:31 4 mg ONETIME ONE Administration - Re-Assessments/Exams Free Text/Narrative Re-Assessment/Exam: 01/18/21 10:13 Review of the patient's records reveals she has been seen in the ED with similar symptoms in the past. The patient reports she did follow-up with her primary care facility for the gallbladder ultrasound and is scheduled for a Hida Scan on 02/19/21. The patient also did come to the ED reporting seeing spots from her left eye, but left without being seen by the provider. Departure - Departure Time of Disposition: 12:27 Disposition: DC/Tfer to [facility] 02 Condition: Serious Clinical Impression: Intraabdominal fluid collection Abdominal pain Qualifiers: Abdominal location: upper abdomen, unspecified Qualified Code(s): R10.10 - Upper abdominal pain, unspecified - Discharge Information *PRESCRIPTION DRUG MONITORING PROGRAM REVIEWED*: Not Applicable *COPY OF PRESCRIPTION DRUG MONITORING REPORT IN PATIENT SHEFALI: Not Applicable Forms: Interfacility Transfer EMTALA Care Plan Goals: Discussed the patient's history, examination, lab results, EKG results, CT results and treatments with Dr. Urias (Hospitalist with [facility] in [place]). Dr. Urias accepted the patient for continued evaluation and management. The patient will be transported by [facility]. Sepsis Event Note (ED) - Focused Exam Vital Signs: Vital Signs Temp Pulse Resp BP Pulse Ox 01/18/21 09:55 98.0 F 120 H 18 130/70 100 - My Orders Last 24 Hours: My Active Orders 01/18/21 09:53 EKG Documentation Completion [RC] STAT - Assessment/Plan Last 24 Hours: My Active Orders 01/18/21 09:53 EKG Documentation Completion [RC] STAT
[2021-01-18 10:17] LABS: AMPHETAMINES,URINE NEGATIVE (NEGATIVE); BARBITURATES,URINE NEGATIVE (NEGATIVE); BENZODIAZEPINE,URINE NEGATIVE (NEGATIVE); MDMA (ECSTASY), URINE NEGATIVE (NEGATIVE); METHADONE,URINE NEGATIVE (NEGATIVE); METHAMPHETAMINES,URINE NEGATIVE (NEGATIVE); OPIATES,URINE NEGATIVE (NEGATIVE); OXYCODONE,URINE NEGATIVE (NEGATIVE); PHENCYCLIDINE,URINE NEGATIVE (NEGATIVE); TCA,URINE NEGATIVE (NEGATIVE)
[2021-01-18] MEDS ORDERED: Ondansetron 4 MG/2 ML SDV IVPUSH ONE (10:30)
[2021-01-18] MEDS ORDERED: HYDROmorphone 0.5 MG/0.5 ML Syringe IVPUSH ONE ×2 (10:30→13:37)
[2021-01-18] MEDS ORDERED: Sodium Chloride 0.9% 1,000 ML IV ONE (10:30)
[2021-01-18 10:42] LABS: ANION GAP 15.2 mEq/L (7-13); CHLORIDE,CL 106 mmol/L (98-107); SODIUM,NA 141 mmol/L (136-145)
[2021-01-18] MEDS ORDERED: Iopamidol 612 MG/ML 100 ML Bottle IVPUSH ONE (10:55)
--- NOTE | 2021-01-18 11:42 | CT ---
EXAMINATION: Abdomen Pelvis w Cont SEX: Female AGE: 25 years CLINICAL HISTORY: 25-year-old 158 pound female with left upper quadrant abdominal pain (vague history of "gallbladder dysfunction"). WBC 6800. Serum troponin is 61 (51 upper limits normal). Scan technique: Volume acquisition of data from the abdomen and pelvis obtained but during the intravenous administration 75 cc nonionic Isovue contrast at 3 cc/s via injector while patient was lying supine on the Siemens multislice scanner [place], [place]. All data archived in the PACS system for storage, reformatting axial/sagittal/coronal planes and study. Interpretation: Abnormal. 1. Prominent cardiac silhouette. No pericardial effusion but there is asymmetric dependent pleural fluid accumulation (effusion) right hemithorax. 2. Large volume free intraperitoneal fluid (ascites) around the liver/spleen, upper abdomen and dependently in the pelvis. 3. No calcified gallstones but the gallbladder wall appears uniformly thickened. Cholecystitis? 4. Liver, stomach, spleen, pancreas and adrenal glands anatomically correct. No pancreatic inflammation or phlegmon. 5. Normal reniform size, axis and configuration bilaterally. No renal cortical mass lesion, nephrolithiasis or signs of obstructive uropathy. Incompletely but symmetrically distended unenhanced urinary bladder. Normal midline uterus. 6. Adjacent to 2.2 cm and 1.9 cm diameter complex cysts, right ovary. No other adnexal mass lesion appreciated. 7. No pelvic or abdominal mass lesion, appreciable mesenteric or retroperitoneal lymphadenopathy, signs of mechanical bowel obstruction or free intraperitoneal air. No inflammatory "dirty" peritoneal fat. Unenhanced bowel unremarkable. CONCLUSION: Large volume ascites and small right pleural effusion. Mild cardiomegaly. Suspicious appearance gallbladder and complex cysts right ovary. No mechanical bowel obstruction or acute peritonitis.
== END 2021-01-18 14:00 ==
LOC: DL.ED 09:40
DX: R18.8 Other ascites (principal); R10.12 Left upper quadrant pain; R10.13 Epigastric pain; R00.0 Tachycardia, unspecified; J45.909 Unspecified asthma, uncomplicated
CPT/HCPCS: 36415; 74177; 80053; 80305; 81001; 81025; 82150; 83690; 84484; 85025; 96374; 96375; 96376; 99285; J1170; J2405; J7030; Q9967

== ENCOUNTER 2021-02-20 17:55 | Emergency (ER) | payer MEDICAID ==
[2021-02-20] MEDS ORDERED: Ondansetron 4 MG/2 ML SDV IVPUSH ONE (18:13)
--- NOTE | 2021-02-20 18:19 | EDM.PDOC ---
<Rosales Navas - Last Filed: 02/20/21 18:14> ED HPI GENERAL MEDICAL PROBLEM - General Stated Complaint: RANDOM CHEST AND SIDE PAINS, HARD TO BREATHE Time Seen by Provider: 02/20/21 18:10 Source of Information: Reports: Patient History Limitations: Reports: No Limitations - History of Present Illness INITIAL COMMENTS - FREE TEXT/NARRATIVE: This 25 yo female patient reports to the ED with intermittent chest and left sided pains. The patient also reports some nausea/vomiting. The patient reports her symptoms started about 1 month ago, but have gotten worse today. The patient was seen in the clinic with similar symptoms. The patient was advised by her clinic provider that she may have a bad gallbladder and liver disease. Th patient reports the last time she vomited was about 30 minutes prior to her arrival in the ED. Onset: Unknown/Unsure Duration: Week(s):, Intermittent Location: Reports: Chest, Abdomen Quality: Reports: Other Severity: Moderate Improves with: Reports: None Worsens with: Reports: None Context: Reports: Other Associated Symptoms: Reports: No Other Symptoms - Related Data Allergies Allergy/AdvReac Type Severity Reaction Status Date / Time No Known Allergies Allergy Verified 02/20/21 19:53 Home Meds: Home Meds Pantoprazole [ProTONIX] 40 mg PO DAILY 02/20/21 [History] Spironolactone 50 mg PO DAILY 02/20/21 [History] Past Medical History - Past Health History Medical/Surgical History: Denies Medical/Surgical History HEENT History: Reports: None Cardiovascular History: Reports: None Respiratory History: Reports: Asthma Gastrointestinal History: Reports: None Genitourinary History: Reports: None [employer] History: Reports: Musculoskeletal History: Reports: None Neurological History: Reports: None Psychiatric History: Reports: Anxiety, Depression Endocrine/Metabolic History: Reports: None Hematologic History: Reports: Anemia Immunologic History: Reports: None Oncologic (Cancer) History: Reports: None Dermatologic History: Reports: None - Infectious Disease History Infectious Disease History: Reports: Chicken Pox, Novel Coronavirus - Past Surgical History Head Surgeries/Procedures: Reports: None Musculoskeletal Surgical History: Reports: Other (See Below) Other Musculoskeletal Surgeries/Procedures:: arm Social & Family History - Family History Family Medical History: No Pertinent Family History - Caffeine Use Caffeine Use: Reports: None - Sexual History Sexual History: Reports: Sexually Active - Living Situation & Occupation Living situation: Reports: with Family ED ROS GENERAL - Review of Systems Review Of Systems: Comprehensive ROS is negative, except as noted in HPI. ED EXAM, GENERAL - Physical Exam Exam: See Below Exam Limited By: No Limitations General Appearance: Alert, WD/WN, Moderate Distress Eye Exam: Bilateral Eye: EOMI, Normal Inspection, PERRL Ears: Normal External Exam, Normal Canal, Hearing Grossly Normal, Normal TMs Nose: Normal Inspection, Normal Mucosa, No Blood Throat/Mouth: Normal Inspection, Normal Lips, Normal Teeth, Normal Gums, Normal Oropharynx, Normal Voice, No Airway Compromise Head: Atraumatic, Normocephalic Neck: Normal Inspection, Supple, Non-Tender, Full Range of Motion Respiratory/Chest: Decreased Breath Sounds (throughout) Cardiovascular: Normal Peripheral Pulses, Regular Rate, Rhythm, No Edema, No Gallop, No JVD, No Murmur, No Rub GI/Abdominal: Tender (diffuse abdominal tenderness) (Female) Exam: Deferred Rectal (Female) Exam: Deferred Back Exam: Normal Inspection, Full Range of Motion, NT Extremities: Normal Inspection, Normal Range of Motion, Non-Tender, Normal Capillary Refill, No Pedal Edema Neurological: Alert, Oriented, CN II-XII Intact, Normal Cognition, Normal Gait, Normal Reflexes, No Motor/Sensory Deficits Psychiatric: Normal Affect, Normal Mood Skin Exam: Warm, Dry, Intact, Normal Color, No Rash Lymphatic: No Adenopathy Departure - Departure Disposition: Home, Self-Care 01 Clinical Impression: Elevated brain natriuretic peptide (BNP) level Ascites Qualifiers: Ascites type: other type Qualified Code(s): R18.8 - Other ascites Chest pain Qualifiers: Chest pain type: chest pain on breathing Qualified Code(s): R07.1 - Chest pain on breathing - Discharge Information Instructions: Nonspecific Chest Pain, Adult, [id number], Ascites Referrals: PCP,None [Primary Care Provider] - Forms: ED Department Discharge Additional Instructions: RX: Lasix 20mg orally once daily until seen by Provider Follow up with your primary care provider on Thursday Return to the ER with any worsening of symptoms <Amy Bustos - Last Filed: 02/21/21 01:38> #1 Interpretation EKG Date: 02/20/21 Time: 19:31 Rhythm: Other (sinus tachycarida) Rate (Beats/Min): 120 Irving: LAD-Left Irving Deviation P-Wave: Present QRS: Normal ST-T: Normal QT: Normal Comparison: No Change Course - Vital Signs Last Recorded V/S: Last Vital Signs Temp 96.9 F 02/20/21 18:07 Pulse 124 H 02/20/21 18:07 Resp 20 02/20/21 18:07 BP 111/80 02/20/21 18:07 Pulse Ox 100 02/20/21 18:07 - Orders/Labs/Meds Labs: Laboratory Tests 02/20/21 02/20/21 02/20/21 Range/Units 18:16 18:16 18:16 WBC 6.7 (5.0-10.0) 10^3/uL RBC 4.40 (4.2-5.4) 10^6/uL Hgb 11.4 L (12.0-16.0) g/dL Hct 35.8 L (37.0-47.0) % MCV 81.4 D (80-100) fL MCH 25.9 L (27.0-34.0) pg MCHC 31.8 L (33.0-35.0) g/dL Plt Count 290 (150-450) 10^3/uL Neut % (Auto) 65.1 (42.2-75.2) % Lymph % (Auto) 26.6 (20.5-50.1) % [place] % (Auto) 6.6 (2-8) % Eos % (Auto) 1.4 (1.0-3.0) % Baso % (Auto) 0.3 (0.0-1.0) % Sodium 139 (136-145) mmol/L Potassium 4.6 (3.5-5.1) mmol/L Chloride 103 (98-107) mmol/L Carbon Dioxide 21 (21-32) mmol/L Anion Gap 19.6 H (7-13) mEq/L BUN 12 (7-18) mg/dL Creatinine 1.00 (0.55-1.02) mg/dL Est Cr Clr Drug Dosing TNP Estimated GFR (MDRD) > 60 BUN/Creatinine Ratio 12.0 (No establ ref range) Glucose 122 H (70-99) mg/dL Lactic Acid 2.6 H* (0.4-2.0) mmol/L Calcium 8.9 (8.5-10.1) mg/dL Total Bilirubin 1.1 H (0.2-1.0) mg/dL AST 72 H (15-37) U/L ALT 65 H (14-59) U/L Alkaline Phosphatase 74 (46-116) U/L Troponin I High Sens (<=51) pg/mL B-Natriuretic Peptide 898 H (0-100) pg/ml Total Protein 6.6 (6.4-8.2) g/dL Albumin 3.5 (3.4-5.0) g/dL Globulin 3.1 Albumin/Globulin Ratio 1.1 Amylase 28 (25-115) U/L Lipase 178 (73-393) U/L Urine Color (YELLOW) Urine Appearance (CLEAR) Urine pH (5.0-9.0) Ur Specific [place] (1.005-1.030) Urine Protein (NEGATIVE) Urine Glucose (UA) (NEGATIVE) Urine Ketones (NEGATIVE) Urine Occult Blood (NEGATIVE) Urine Nitrite (NEGATIVE) Urine Bilirubin (NEGATIVE) Urine Urobilinogen (0.2-1.0) mg/dL Ur Leukocyte Esterase (NEGATIVE) Urine RBC (0-5) /HPF Urine WBC (0-5/HPF) /HPF Ur Epithelial Cells (NOT SEEN) /HPF Amorphous Sediment (NOT SEEN) /HPF Urine Bacteria (0-FEW/HPF) /HPF Urine Mucus (NOT SEEN) /LPF Urine HCG, Qual Urine Opiates Screen (NEGATIVE) Ur Oxycodone Screen (NEGATIVE) Urine Methadone Screen (NEGATIVE) Ur Barbiturates Screen (NEGATIVE) U Tricyclic Antidepress (NEGATIVE) Ur Phencyclidine Scrn (NEGATIVE) Ur Amphetamine Screen (NEGATIVE) U Methamphetamines Scrn (NEGATIVE) Urine MDMA Screen (NEGATIVE) U Benzodiazepines Scrn (NEGATIVE) Urine Cocaine Screen (NEGATIVE) U Marijuana (THC) Screen (NEGATIVE) Ethyl Alcohol < 3 (0) mg/dL 02/20/21 02/20/21 02/20/21 Range/Units 18:16 20:36 20:36 WBC (5.0-10.0) 10^3/uL RBC (4.2-5.4) 10^6/uL Hgb (12.0-16.0) g/dL Hct (37.0-47.0) % MCV (80-100) fL MCH (27.0-34.0) pg MCHC (33.0-35.0) g/dL Plt Count (150-450) 10^3/uL Neut % (Auto) (42.2-75.2) % Lymph % (Auto) (20.5-50.1) % [place] % (Auto) (2-8) % Eos % (Auto) (1.0-3.0) % Baso % (Auto) (0.0-1.0) % Sodium (136-145) mmol/L Potassium (3.5-5.1) mmol/L Chloride (98-107) mmol/L Carbon Dioxide (21-32) mmol/L Anion Gap (7-13) mEq/L BUN (7-18) mg/dL Creatinine (0.55-1.02) mg/dL Est Cr Clr Drug Dosing Estimated GFR (MDRD) BUN/Creatinine Ratio (No establ ref range) Glucose (70-99) mg/dL Lactic Acid (0.4-2.0) mmol/L Calcium (8.5-10.1) mg/dL Total Bilirubin (0.2-1.0) mg/dL AST (15-37) U/L ALT (14-59) U/L Alkaline Phosphatase (46-116) U/L Troponin I High Sens 26 (<=51) pg/mL B-Natriuretic Peptide (0-100) pg/ml Total Protein (6.4-8.2) g/dL Albumin (3.4-5.0) g/dL Globulin Albumin/Globulin Ratio Amylase (25-115) U/L Lipase (73-393) U/L Urine Color Yellow (YELLOW) Urine Appearance Clear (CLEAR) Urine pH 6.0 (5.0-9.0) Ur Specific [place] 1.025 (1.005-1.030) Urine Protein 30 H (NEGATIVE) Urine Glucose (UA) Negative (NEGATIVE) Urine Ketones Negative (NEGATIVE) Urine Occult Blood Negative (NEGATIVE) Urine Nitrite Negative (NEGATIVE) Urine Bilirubin Negative (NEGATIVE) Urine Urobilinogen 1.0 (0.2-1.0) mg/dL Ur Leukocyte Esterase Negative (NEGATIVE) Urine RBC 0-5 (0-5) /HPF Urine WBC 0-5 (0-5/HPF) /HPF Ur Epithelial Cells Occasional (NOT SEEN) /HPF Amorphous Sediment Few (NOT SEEN) /HPF Urine Bacteria Occasional (0-FEW/HPF) /HPF Urine Mucus Many H (NOT SEEN) /LPF Urine HCG, Qual Negative Urine Opiates Screen (NEGATIVE) Ur Oxycodone Screen (NEGATIVE) Urine Methadone Screen (NEGATIVE) Ur Barbiturates Screen (NEGATIVE) U Tricyclic Antidepress (NEGATIVE) Ur Phencyclidine Scrn (NEGATIVE) Ur Amphetamine Screen (NEGATIVE) U Methamphetamines Scrn (NEGATIVE) Urine MDMA Screen (NEGATIVE) U Benzodiazepines Scrn (NEGATIVE) Urine Cocaine Screen (NEGATIVE) U Marijuana (THC) Screen (NEGATIVE) Ethyl Alcohol (0) mg/dL 02/20/21 02/20/21 Range/Units 20:36 21:41 WBC (5.0-10.0) 10^3/uL RBC (4.2-5.4) 10^6/uL Hgb (12.0-16.0) g/dL Hct (37.0-47.0) % MCV (80-100) fL MCH (27.0-34.0) pg MCHC (33.0-35.0) g/dL Plt Count (150-450) 10^3/uL Neut % (Auto) (42.2-75.2) % Lymph % (Auto) (20.5-50.1) % [place] % (Auto) (2-8) % Eos % (Auto) (1.0-3.0) % Baso % (Auto) (0.0-1.0) % Sodium (136-145) mmol/L Potassium (3.5-5.1) mmol/L Chloride (98-107) mmol/L Carbon Dioxide (21-32) mmol/L Anion Gap (7-13) mEq/L BUN (7-18) mg/dL Creatinine (0.55-1.02) mg/dL Est Cr Clr Drug Dosing Estimated GFR (MDRD) BUN/Creatinine Ratio (No establ ref range) Glucose (70-99) mg/dL Lactic Acid 1.8 (0.4-2.0) mmol/L Calcium (8.5-10.1) mg/dL Total Bilirubin (0.2-1.0) mg/dL AST (15-37) U/L ALT (14-59) U/L Alkaline Phosphatase (46-116) U/L Troponin I High Sens (<=51) pg/mL B-Natriuretic Peptide (0-100) pg/ml Total Protein (6.4-8.2) g/dL Albumin (3.4-5.0) g/dL Globulin Albumin/Globulin Ratio Amylase (25-115) U/L Lipase (73-393) U/L Urine Color (YELLOW) Urine Appearance (CLEAR) Urine pH (5.0-9.0) Ur Specific [place] (1.005-1.030) Urine Protein (NEGATIVE) Urine Glucose (UA) (NEGATIVE) Urine Ketones (NEGATIVE) Urine Occult Blood (NEGATIVE) Urine Nitrite (NEGATIVE) Urine Bilirubin (NEGATIVE) Urine Urobilinogen (0.2-1.0) mg/dL Ur Leukocyte Esterase (NEGATIVE) Urine RBC (0-5) /HPF Urine WBC (0-5/HPF) /HPF Ur Epithelial Cells (NOT SEEN) /HPF Amorphous Sediment (NOT SEEN) /HPF Urine Bacteria (0-FEW/HPF) /HPF Urine Mucus (NOT SEEN) /LPF Urine HCG, Qual Urine Opiates Screen Negative (NEGATIVE) Ur Oxycodone Screen Negative (NEGATIVE) Urine Methadone Screen Negative (NEGATIVE) Ur Barbiturates Screen Negative (NEGATIVE) U Tricyclic Antidepress Negative (NEGATIVE) Ur Phencyclidine Scrn Negative (NEGATIVE) Ur Amphetamine Screen Negative (NEGATIVE) U Methamphetamines Scrn Negative (NEGATIVE) Urine MDMA Screen Negative (NEGATIVE) U Benzodiazepines Scrn Negative (NEGATIVE) Urine Cocaine Screen Negative (NEGATIVE) U Marijuana (THC) Screen Negative (NEGATIVE) Ethyl Alcohol (0) mg/dL Meds: Medications Discontinued Medications Generic Name Dose Route Start Last Admin Trade Name Maryanne PRN Reason Stop Dose Admin Diphenhydramine HCl 25 mg 02/20/21 20:37 02/20/21 20:58 Diphenhydramine 50 Mg/Ml Sdv IVPUSH 02/20/21 20:38 25 mg ONETIME ONE Administration Furosemide 20 mg 02/21/21 20:29 02/20/21 20:59 Furosemide 40 Mg/4 Ml Vial IVPUSH 02/21/21 20:30 20 mg ONETIME ONE Administration Furosemide Confirm 02/20/21 20:48 02/20/21 20:59 Furosemide 40 Mg/4 Ml Vial Administered 02/20/21 20:49 Not Given Dose 40 mg .ROUTE .STK-MED ONE Iopamidol 100 ml 02/20/21 19:53 02/20/21 21:31 Iopamidol 612 Mg/Ml 100 Ml Bottle IVPUSH 02/20/21 19:54 100 ml ONETIME ONE Administration Ondansetron HCl 4 mg 02/20/21 18:13 02/20/21 19:25 Ondansetron 4 Mg/2 Ml Sdv IVPUSH 02/20/21 18:14 4 mg ONETIME ONE Administration - Radiology Interpretation Free Text/Narrative:: Chest/Abdomen/Pelvis CT with contrast: PROCEDURE INFORMATION: Exam: CT Chest With Contrast; Diagnostic Exam date and time: 02/20/2021 9:17 PM Age: 25 years old Clinical indication: Abdominal pain; Localized; Left-sided; Additional info: Left sided chest/abdomen pain, elevated bnp TECHNIQUE: Imaging protocol: Diagnostic computed tomography of the chest with contrast. Radiation optimization: All CT scans at this facility use at least one of these dose optimization techniques: automated exposure control; mA and/or kV adjustment per patient size (includes targeted exams where dose is matched to clinical indication); or iterative reconstruction. Contrast material: ISOVUE 300; Contrast volume: 100 ml; Contrast route: INTRAVENOUS (IV); COMPARISON: CT Abdomen Pelvis w Cont 01/18/2021 11:10 AM FINDINGS: Lungs: No lung consolidation or suspicious masses. Pleural spaces: Unremarkable. No pneumothorax. No pleural effusion. Heart: Mild cardiomegaly.. No pericardial effusion. Aorta: No aortic aneurysm. Lymph nodes: No enlarged axillary, mediastinal, or hilar lymph nodes. Bones/joints: Healing nondisplaced posterolateral left 10th rib fracture. Soft tissues: Unremarkable. IMPRESSION: 1. No active disease of the chest. 2. Healing nondisplaced posterolateral left 10th rib fracture. 3. Mild cardiomegaly. PROCEDURE INFORMATION: Exam: CT Abdomen And Pelvis With Contrast Exam date and time: 02/20/2021 9:17 PM Age: 25 years old Clinical indication: Abdominal pain; Localized; Left-sided; Additional info: Left sided chest/abdomen pain, elevated bnp TECHNIQUE: Imaging protocol: Computed tomography of the abdomen and pelvis with contrast. Radiation optimization: All CT scans at this facility use at least one of these dose optimization techniques: automated exposure control; mA and/or kV adjustment per patient size (includes targeted exams where dose is matched to clinical indication); or iterative reconstruction. Contrast material: ISOVUE 300; Contrast volume: 100 ml; Contrast route: INTRAVENOUS (IV); COMPARISON: CT Abdomen Pelvis w Cont 01/18/2021 11:10 AM FINDINGS: Heart: Mild cardiomegaly. Liver: The liver is normal in architecture, without suspicious abnormality. Gallbladder and bile ducts: See "Pancreas" finding. Pancreas: The pancreatic parenchyma is normal in bulk and sharply marginated. Duct is not dilated. No calcifications, masses, or abnormal fluid collections. Spleen: Spleen is normal in size. No mass or fluid collection. Adrenal glands: There are no adrenal masses. Kidneys and ureters: Both kidneys are normal in parenchymal bulk. No hydronephrosis, stone, or solid mass. Stomach and bowel: No significant abnormalities of the stomach. There are no dilated or thickened small bowel loops. Gas and stool are seen in the colon to the rectum. No mass. Appendix: The appendix is seen. It is normal. Intraperitoneal space: Small amount of ascites in the pelvis is pathologic in its quantity, and nonspecific. There is no pneumoperitoneum, abscess, stranding of fat, or mass. Vasculature: No aneurysm. Lymph nodes: Multiple normal-sized extraperitoneal lymph nodes are present and stable. There are no enlarged celiac, mesenteric, periportal, extraperitoneal or inguinal lymph nodes. Urinary bladder: There is no bladder wall thickening, mass, or calculus. Reproductive: The uterus and ovaries are within normal limits. There are no adenexal masses. Bones/joints: Age appropriate. No acute fracture. No dislocation. There are no suspicious lytic or osteosclerotic lesions. Soft tissues: No suspicious soft tissue masses, soft tissue gas of significance, or hernia. IMPRESSION: 1. Small amount of ascites in the pelvis is pathologic in its quantity, and nonspecific. Quantity of fluid less than January 18, 2021. 2. The small right pleural effusion noted previously has resolved. Thank you for allowing us to participate in the care of your patient. Dictated and Authenticated by: Noé Amos MD 02/20/2021 10:05 PM Central Time ([place] & [place]) See rad report - Re-Assessments/Exams Free Text/Narrative Re-Assessment/Exam: 02/21/21 01:38 Discussed lab and diagnostic findings with the patient. Encourage patient to use Lasix daily until she is seen by her primary care provider on Thursday. Patient encouraged to return to the ER with any worsening of symptoms. Patient states understanding. Departure - Departure Time of Disposition: 22:26 Condition: Fair - Discharge Information *PRESCRIPTION DRUG MONITORING PROGRAM REVIEWED*: No *COPY OF PRESCRIPTION DRUG MONITORING REPORT IN PATIENT SHEFALI: No Sepsis Event Note (ED) - Focused Exam Vital Signs: Vital Signs Temp Pulse Resp BP Pulse Ox 02/20/21 18:07 96.9 F 124 H 20 111/80 100
[2021-02-20 18:40] LABS: ANION GAP 19.6 mEq/L (7-13); CHLORIDE,CL 103 mmol/L (98-107); SODIUM,NA 139 mmol/L (136-145)
[2021-02-20] MEDS ORDERED: Iopamidol 612 MG/ML 100 ML Bottle IVPUSH ONE (19:53)
[2021-02-20] MEDS ORDERED: diphenhydrAMINE 50 MG/ML SDV IVPUSH ONE (20:37)
[2021-02-20] MEDS ORDERED: Furosemide 40 MG/4 ML VIAL ONE (20:48)
[2021-02-20 20:58] LABS: AMPHETAMINES,URINE NEGATIVE (NEGATIVE); BARBITURATES,URINE NEGATIVE (NEGATIVE); BENZODIAZEPINE,URINE NEGATIVE (NEGATIVE); MDMA (ECSTASY), URINE NEGATIVE (NEGATIVE); METHADONE,URINE NEGATIVE (NEGATIVE); METHAMPHETAMINES,URINE NEGATIVE (NEGATIVE); OPIATES,URINE NEGATIVE (NEGATIVE); OXYCODONE,URINE NEGATIVE (NEGATIVE); PHENCYCLIDINE,URINE NEGATIVE (NEGATIVE); TCA,URINE NEGATIVE (NEGATIVE)
[2021-02-20 21:24] VITALS: BP 111/80; PULSE 124
--- NOTE | 2021-02-20 22:06 | CT ---
PROCEDURE INFORMATION: Exam: CT Chest With Contrast; Diagnostic Exam date and time: 02/20/2021 9:17 PM Age: 25 years old Clinical indication: Abdominal pain; Localized; Left-sided; Additional info: Left sided chest/abdomen pain, elevated bnp TECHNIQUE: Imaging protocol: Diagnostic computed tomography of the chest with contrast. Radiation optimization: All CT scans at this facility use at least one of these dose optimization techniques: automated exposure control; mA and/or kV adjustment per patient size (includes targeted exams where dose is matched to clinical indication); or iterative reconstruction. Contrast material: ISOVUE 300; Contrast volume: 100 ml; Contrast route: INTRAVENOUS (IV); COMPARISON: CT Abdomen Pelvis w Cont 01/18/2021 11:10 AM FINDINGS: Lungs: No lung consolidation or suspicious masses. Pleural spaces: Unremarkable. No pneumothorax. No pleural effusion. Heart: Mild cardiomegaly.. No pericardial effusion. Aorta: No aortic aneurysm. Lymph nodes: No enlarged axillary, mediastinal, or hilar lymph nodes. Bones/joints: Healing nondisplaced posterolateral left 10th rib fracture. Soft tissues: Unremarkable. IMPRESSION: 1. No active disease of the chest. 2. Healing nondisplaced posterolateral left 10th rib fracture. 3. Mild cardiomegaly. PROCEDURE INFORMATION: Exam: CT Abdomen And Pelvis With Contrast Exam date and time: 02/20/2021 9:17 PM Age: 25 years old Clinical indication: Abdominal pain; Localized; Left-sided; Additional info: Left sided chest/abdomen pain, elevated bnp TECHNIQUE: Imaging protocol: Computed tomography of the abdomen and pelvis with contrast. Radiation optimization: All CT scans at this facility use at least one of these dose optimization techniques: automated exposure control; mA and/or kV adjustment per patient size (includes targeted exams where dose is matched to clinical indication); or iterative reconstruction. Contrast material: ISOVUE 300; Contrast volume: 100 ml; Contrast route: INTRAVENOUS (IV); COMPARISON: CT Abdomen Pelvis w Cont 01/18/2021 11:10 AM FINDINGS: Heart: Mild cardiomegaly. Liver: The liver is normal in architecture, without suspicious abnormality. Gallbladder and bile ducts: See "Pancreas" finding. Pancreas: The pancreatic parenchyma is normal in bulk and sharply marginated. Duct is not dilated. No calcifications, masses, or abnormal fluid collections. Spleen: Spleen is normal in size. No mass or fluid collection. Adrenal glands: There are no adrenal masses. Kidneys and ureters: Both kidneys are normal in parenchymal bulk. No hydronephrosis, stone, or solid mass. Stomach and bowel: No significant abnormalities of the stomach. There are no dilated or thickened small bowel loops. Gas and stool are seen in the colon to the rectum. No mass. Appendix: The appendix is seen. It is normal. Intraperitoneal space: Small amount of ascites in the pelvis is pathologic in its quantity, and nonspecific. There is no pneumoperitoneum, abscess, stranding of fat, or mass. Vasculature: No aneurysm. Lymph nodes: Multiple normal-sized extraperitoneal lymph nodes are present and stable. There are no enlarged celiac, mesenteric, periportal, extraperitoneal or inguinal lymph nodes. Urinary bladder: There is no bladder wall thickening, mass, or calculus. Reproductive: The uterus and ovaries are within normal limits. There are no adenexal masses. Bones/joints: Age appropriate. No acute fracture. No dislocation. There are no suspicious lytic or osteosclerotic lesions. Soft tissues: No suspicious soft tissue masses, soft tissue gas of significance, or hernia. IMPRESSION: 1. Small amount of ascites in the pelvis is pathologic in its quantity, and nonspecific. Quantity of fluid less than January 18, 2021. 2. The small right pleural effusion noted previously has resolved.
[2021-02-21] MEDS ORDERED: Furosemide 40 MG/4 ML VIAL IVPUSH ONE (20:29)
== END 2021-02-20 22:54 | disposition home or self-care (01) ==
LOC: DL.ED 17:55
DX: R07.1 Chest pain on breathing (principal); R18.8 Other ascites; R79.89 Other specified abnormal findings of blood chemistry; Z86.16 Personal history of COVID-19
CPT/HCPCS: 36415; 71260; 74177; 80053; 80305; 80307; 81001; 81025; 82150; 83605; 83690; 83880; 84484; 85025; 93005; 96374; 96375; 99285; J1200; J1940; J2405; Q9967; 93010; 99284

== ENCOUNTER 2021-02-24 21:06 | Emergency (ER) | payer MEDICAID ==
[2021-02-24] MEDS ORDERED: Iopamidol 612 MG/ML 100 ML Bottle IVPUSH ONE (21:18)
[2021-02-24] MEDS ORDERED: Morphine 4 MG/ML Syringe IVPUSH ONE (21:18)
[2021-02-24] MEDS ORDERED: Ondansetron 4 MG/2 ML SDV IVPUSH ONE (21:18)
--- NOTE | 2021-02-24 21:20 | EDM.PDOC ---
ED HPI GENERAL MEDICAL PROBLEM - General Chief Complaint: Abdominal Pain Stated Complaint: STOMACH PAINS, COUGHING UP FLEM, WEEZING Time Seen by Provider: 02/24/21 21:19 Source of Information: Reports: Patient History Limitations: Reports: No Limitations - History of Present Illness INITIAL COMMENTS - FREE TEXT/NARRATIVE: Patient is a unfortunate 25-year-old female who presents emerged part today with complaint of abdominal pain. The patient reports that symptoms started this morning and progressively worsened since she reports that she has crampy type pain in the left lower quadrant of her abdomen nothing makes the pain better nothing makes pain worse she reports the pain has been intermittent she is also reports that she has had episodes of coughing no nausea no vomiting no diarrhea no dysuria no frequency no urgency no vaginal discharge no foul odors no known cord of her exposure no recent travel Abdomen Pain Score (Numeric/FACES): 6 - Related Data Allergies Allergy/AdvReac Type Severity Reaction Status Date / Time No Known Allergies Allergy Verified 02/24/21 21:29 Home Meds: Home Meds Pantoprazole [ProTONIX] 40 mg PO DAILY 02/20/21 [History] Spironolactone 50 mg PO DAILY 02/20/21 [History] Past Medical History - Past Health History Medical/Surgical History: Denies Medical/Surgical History HEENT History: Reports: None Cardiovascular History: Reports: None Respiratory History: Reports: Asthma Gastrointestinal History: Reports: Cirrhosis, Other (See Below) Other Gastrointestinal History: ascites Genitourinary History: Reports: None 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: Musculoskeletal History: Reports: None Neurological History: Reports: None Psychiatric History: Reports: Anxiety, Depression Endocrine/Metabolic History: Reports: None Hematologic History: Reports: Anemia Immunologic History: Reports: None Oncologic (Cancer) History: Reports: None Dermatologic History: Reports: None - Infectious Disease History Infectious Disease History: Reports: Chicken Pox, Novel Coronavirus - Past Surgical History Head Surgeries/Procedures: Reports: None Musculoskeletal Surgical History: Reports: Other (See Below) Other Musculoskeletal Surgeries/Procedures:: arm Social & Family History - Family History Family Medical History: No Pertinent Family History - Caffeine Use Caffeine Use: Reports: None - Sexual History Sexual History: Reports: Sexually Active - Living Situation & Occupation Living situation: Reports: with Family ED ROS GENERAL - Review of Systems Review Of Systems: See Below Constitutional: Denies: Fever, Chills Respiratory: Reports: Wheezing, Cough. Denies: Shortness of Breath, Sputum Cardiovascular: Denies: Chest Pain GI/Abdominal: Reports: Abdominal Pain, Nausea. Denies: Diarrhea, Flatus, Hematemesis, Hematochezia, Vomiting ED EXAM, GI/ABD - Physical Exam Exam: See Below Exam Limited By: No Limitations General Appearance: Alert, WD/WN, Mild Distress Throat/Mouth: Normal Inspection, Normal Lips, Normal Teeth, Normal Gums, Normal Oropharynx, Normal Voice, No Airway Compromise Head: Atraumatic, Normocephalic Neck: Normal Inspection, Supple, Non-Tender, Full Range of Motion Respiratory/Chest: No Respiratory Distress, Lungs Clear, Normal Breath Sounds, No Accessory Muscle Use, Chest Non-Tender Cardiovascular: Normal Peripheral Pulses, Regular Rate, Rhythm, No Edema, No Gallop, No JVD, No Murmur, No Rub GI/Abdominal Exam: Normal Bowel Sounds, Soft, Tender (LLQ moderate) Back Exam: Normal Inspection, Full Range of Motion, NT Extremities: Normal Inspection, Normal Range of Motion, Non-Tender, Normal Capillary Refill, No Pedal Edema Neurological: Alert, Oriented, CN II-XII Intact Skin Exam: Warm, Dry, Diaphoretic Course - Vital Signs Text/Narrative:: Work-up Today is reassuring, will discharge patient home outpatient follow-up outpatient with PCP or return to the emergency department for any worsening condition Last Recorded V/S: Last Vital Signs Temp 97.2 F 02/24/21 21:10 Pulse 114 H 02/24/21 21:10 Resp 18 02/24/21 21:10 BP 136/74 02/24/21 21:10 Pulse Ox 100 02/24/21 21:10 - Orders/Labs/Meds Orders: Active Orders 24 hr Category Date Time Status Sodium Chloride 0.9% [Saline Flush] Med 02/24/21 21:16 Active 10 ml FLUSH ASDIRECTED PRN Saline Lock Insert [OM.PC] Stat Oth 02/24/21 21:16 Ordered Medication Orders Sodium Chloride (Sodium Chloride 0.9% 10 Ml Syringe) 10 ml FLUSH ASDIRECTED PRN PRN Reason: Keep Vein Open Last Admin: 02/24/21 21:43 Dose: 10 ml Documented by: Admin: 02/24/21 21:40 Dose: 10 ml Documented by: LUIS Labs: Laboratory Tests 02/24/21 02/24/21 02/24/21 Range/Units 21:25 21:25 21:45 WBC 8.6 (5.0-10.0) 10^3/uL RBC 4.66 (4.2-5.4) 10^6/uL Hgb 11.8 L (12.0-16.0) g/dL Hct 36.9 L (37.0-47.0) % MCV 79.2 L (80-100) fL MCH 25.3 L (27.0-34.0) pg MCHC 32.0 L (33.0-35.0) g/dL Plt Count 287 (150-450) 10^3/uL Neut % (Auto) 77.7 H (42.2-75.2) % Lymph % (Auto) 14.5 L (20.5-50.1) % [place] % (Auto) 7.0 (2-8) % Eos % (Auto) 0.6 L (1.0-3.0) % Baso % (Auto) 0.2 (0.0-1.0) % Sodium 136 (136-145) mmol/L Potassium 3.2 L (3.5-5.1) mmol/L Chloride 96 L (98-107) mmol/L Carbon Dioxide 25 (21-32) mmol/L Anion Gap 18.2 H (7-13) mEq/L BUN 14 (7-18) mg/dL Creatinine 1.03 H (0.55-1.02) mg/dL Est Cr Clr Drug Dosing 69.07 mL/min Estimated GFR (MDRD) > 60 BUN/Creatinine Ratio 13.6 (No establ ref range) Glucose 101 H (70-99) mg/dL Calcium 9.2 (8.5-10.1) mg/dL Total Bilirubin 1.8 H (0.2-1.0) mg/dL AST 78 H (15-37) U/L ALT 81 H (14-59) U/L Alkaline Phosphatase 69 (46-116) U/L Total Protein 7.1 (6.4-8.2) g/dL Albumin 4.1 (3.4-5.0) g/dL Globulin 3.0 Albumin/Globulin Ratio 1.4 Lipase 101 (73-393) U/L HCG, Qual Negative Urine Color Yellow (YELLOW) Urine Appearance Clear (CLEAR) Urine pH 5.5 (5.0-9.0) Ur Specific [place] 1.025 (1.005-1.030) Urine Protein Negative (NEGATIVE) Urine Glucose (UA) Negative (NEGATIVE) Urine Ketones Negative (NEGATIVE) Urine Occult Blood Negative (NEGATIVE) Urine Nitrite Negative (NEGATIVE) Urine Bilirubin Negative (NEGATIVE) Urine Urobilinogen 1.0 (0.2-1.0) mg/dL Ur Leukocyte Esterase Negative (NEGATIVE) Meds: Medications Generic Name Dose Route Start Last Admin Trade Name Freq PRN Reason Stop Dose Admin Sodium Chloride 10 ml 02/24/21 21:16 02/24/21 21:43 Sodium Chloride 0.9% 10 Ml Syringe FLUSH 10 ml ASDIRECTED PRN Administration Keep Vein Open Discontinued Medications Generic Name Dose Route Start Last Admin Trade Name Freq PRN Reason Stop Dose Admin Iopamidol 100 ml 02/24/21 21:18 02/24/21 21:59 Iopamidol 612 Mg/Ml 100 Ml Bottle IVPUSH 02/24/21 21:19 100 ml ONETIME ONE Administration Morphine Sulfate 4 mg 02/24/21 21:18 02/24/21 21:39 Morphine 4 Mg/Ml Syringe IVPUSH 02/24/21 21:19 4 mg ONETIME ONE Administration Ondansetron HCl 4 mg 02/24/21 21:18 02/24/21 21:39 Ondansetron 4 Mg/2 Ml Sdv IVPUSH 02/24/21 21:19 4 mg ONETIME ONE Administration Departure - Departure Time of Disposition: 22:56 Disposition: Home, Self-Care 01 Condition: Good Clinical Impression: Abdominal pain Qualifiers: Abdominal location: upper abdomen, unspecified Qualified Code(s): R10.10 - Upper abdominal pain, unspecified - Discharge Information *PRESCRIPTION DRUG MONITORING PROGRAM REVIEWED*: No *COPY OF PRESCRIPTION DRUG MONITORING REPORT IN PATIENT SHEFALI: No Instructions: Abdominal Pain, Adult Forms: ED Department Discharge Additional Instructions: Home, rest, adequate fluids, return as needed for any worsening condition Sepsis Event Note (ED) - Focused Exam Vital Signs: Vital Signs Temp Pulse Resp BP Pulse Ox 02/24/21 21:10 97.2 F 114 H 18 136/74 100 - My Orders Last 24 Hours: My Active Orders 02/24/21 21:16 Sodium Chloride 0.9% [Saline Flush] 10 ml FLUSH ASDIRECTED PRN Saline Lock Insert [OM.PC] Stat - Assessment/Plan Last 24 Hours: My Active Orders 02/24/21 21:16 Sodium Chloride 0.9% [Saline Flush] 10 ml FLUSH ASDIRECTED PRN Saline Lock Insert [OM.PC] Stat
[2021-02-24 21:29] VITALS: BP 136/74; PULSE 114
[2021-02-24] MEDS: Sodium Chloride 0.9% 10 ML Syringe FLUSH PRN ×2 (21:40→21:43)
[2021-02-24 21:49] LABS: ANION GAP 18.2 mEq/L (7-13); CHLORIDE,CL 96 mmol/L (98-107); SODIUM,NA 136 mmol/L (136-145)
--- NOTE | 2021-02-24 22:53 | CT ---
PROCEDURE INFORMATION: Exam: CT Abdomen And Pelvis With Contrast Exam date and time: 02/24/2021 10:05 PM Age: 25 years old Clinical indication: Other: Low abd pain--wbc 10,500 TECHNIQUE: Imaging protocol: Computed tomography of the abdomen and pelvis with contrast. Radiation optimization: All CT scans at this facility use at least one of these dose optimization techniques: automated exposure control; mA and/or kV adjustment per patient size (includes targeted exams where dose is matched to clinical indication); or iterative reconstruction. Contrast material: [id number]; Contrast volume: 75 ml; Contrast route: INTRAVENOUS (IV); COMPARISON: CT Chest Abdomen Pelvis w Cont 02/20/2021 9:17 PM FINDINGS: Heart: Mild cardiomegaly as before. The visualized lung bases are unremarkable. No pleural effusion. Liver: There is a diffuse decrease in hepatic parenchymal density, consistent with moderate fatty infiltration. Gallbladder and bile ducts: The gallbladder is very poorly demonstrated, but there is no gross evidence of calcified gallstones. Pancreas: The pancreas is unremarkable. Spleen: The spleen is normal. Adrenal glands: The adrenal glands demonstrate no significant abnormality. Kidneys and ureters: Kidneys are unremarkable. Stomach and bowel: The stomach is within normal limits. There is no evidence of bowel obstruction or intestinal perforation. Fluid within the nondilated proximal colon. Appendix: Normal appendix. Intraperitoneal space: Small free fluid in the pelvis, similar to prior. No pneumoperitoneum. Vasculature: The aorta is normal. Lymph nodes: There is no evidence of lymphadenopathy. Urinary bladder: The urinary bladder is within normal limits. Reproductive: Unremarkable as visualized. Bones/joints: Subacute, healing left 10th rib fracture again demonstrated. No acute osseous abnormality. Soft tissues: The extra-abdominal soft tissues are unremarkable. Other findings: The examination is degraded by motion artifact. IMPRESSION: 1. Suboptimal evaluation secondary to motion artifact. Overall no significant change from prior. As before there is abnormal free fluid the pelvis, overall small in volume. 2. Fluid within the nondilated proximal colon; correlate for diarrheal illness.
== END 2021-02-24 23:22 | disposition home or self-care (01) ==
LOC: DL.ED 21:06
DX: R10.10 Upper abdominal pain, unspecified (principal); Z86.16 Personal history of COVID-19
CPT/HCPCS: 36415; 74177; 80053; 81003; 83690; 84703; 85025; 96374; 96375; 99284; J2270; J2405; Q9967

== ENCOUNTER 2021-03-11 15:25 | Emergency (ER) | payer MEDICAID ==
[2021-03-11] MEDS ORDERED: Sodium Chloride 0.9% 10 ML Syringe FLUSH PRN (18:07)
[2021-03-11] MEDS ORDERED: Ondansetron 4 MG/2 ML SDV IV ONE (18:08)
[2021-03-11 18:43] LABS: ANION GAP 18.6 mEq/L (7-13); CHLORIDE,CL 98 mmol/L (98-107); SODIUM,NA 136 mmol/L (136-145)
[2021-03-11 18:44] VITALS: BP 106/82; PULSE 119
--- NOTE | 2021-03-11 19:03 | EDM.PDOC ---
Scribed by Ashlyn Last 03/11/21 [id number] for Eduardo Shultz MD ED HPI GENERAL MEDICAL PROBLEM - General Chief Complaint: General Stated Complaint: SPITTING BLOOD, BODY ACHES, FLUID IN STOMACH Time Seen by Provider: 03/11/21 17:57 Source of Information: Reports: Patient, RN, RN Notes Reviewed History Limitations: Reports: No Limitations - History of Present Illness INITIAL COMMENTS - FREE TEXT/NARRATIVE: Patient presents to ED by POV with complaint of several days of abdominal distention similar to past ascites. She has nausea and shortness of breath and increasing fatigue. She reports history of alcoholic cirrhosis and chronic pancreatitis. Patient states that she believes she was told that all of these illnesses have affected her heart or lungs. States she was in [place] about a month ago and had fluid taken off her abdomen due to ascites. She was discharged with prescriptions but she did not fill them or take the. She has not followed up with GI specialist or primary clinic. She last drank alcohol approximately January 17, 2021. About 2 to 3 weeks later she quit using meth a well. She denies fever or chills. Denies cough or chest pain. She states that her eye have been turning more and more yellow. Onset: Gradual Duration: Getting Worse Location: Reports: Abdomen Severity: Severe Improves with: Reports: None Worsens with: Reports: None Associated Symptoms: Reports: No Other Symptoms - Related Data Allergies Allergy/AdvReac Type Severity Reaction Status Date / Time No Known Allergies Allergy Verified 02/24/21 21:29 Home Meds: Home Meds Pantoprazole [ProTONIX] 40 mg PO DAILY 02/20/21 [History] Spironolactone 50 mg PO DAILY 02/20/21 [History] Past Medical History - Past Health History Medical/Surgical History: Denies Medical/Surgical History HEENT History: Reports: None Cardiovascular History: Reports: Heart Failure Respiratory History: Reports: Asthma, Other (See Below) (Pleural effusions) Gastrointestinal History: Reports: Cirrhosis, Gastritis, Jaundice, Other (See Below) Other Gastrointestinal History: ascites Genitourinary History: Reports: None 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: Musculoskeletal History: Reports: None Neurological History: Reports: None Psychiatric History: Reports: Anxiety, Depression Endocrine/Metabolic History: Reports: None Hematologic History: Reports: Anemia Immunologic History: Reports: None Oncologic (Cancer) History: Reports: None Dermatologic History: Reports: None - Infectious Disease History Infectious Disease History: Reports: Chicken Pox, Novel Coronavirus - Past Surgical History Head Surgeries/Procedures: Reports: None Musculoskeletal Surgical History: Reports: Other (See Below) Other Musculoskeletal Surgeries/Procedures:: arm Social & Family History - Family History Family Medical History: No Pertinent Family History - Caffeine Use Caffeine Use: Reports: Coffee, Energy Drinks, Soda, Tea, Other - Sexual History Sexual History: Reports: Sexually Active - Living Situation & Occupation Living situation: Reports: with Family ED ROS GENERAL - Review of Systems Review Of Systems: Comprehensive ROS is negative, except as noted in HPI. ED EXAM, GENERAL - Physical Exam Exam: See Below Exam Limited By: No Limitations General Appearance: Alert, No Apparent Distress, Other (Chronically ill appearing) Eye Exam: Bilateral Eye: EOMI (Scleral icterus) Nose: Normal Inspection, No Blood Throat/Mouth: Normal Lips, Normal Voice, No Airway Compromise Head: Atraumatic, Normocephalic Neck: Normal Inspection, Supple, Non-Tender, Full Range of Motion Respiratory/Chest: No Respiratory Distress, Lungs Clear, No Accessory Muscle Use, Chest Non-Tender, Decreased Breath Sounds Cardiovascular: Regular Rate, Rhythm, Tachycardia GI/Abdominal: Normal Bowel Sounds, Soft, Other (Fluid wave consistent with a scites). No: Guarding, Rigid, Rebound Back Exam: Normal Inspection Extremities: Normal Range of Motion, Non-Tender Neurological: Alert, Oriented, CN II-XII Intact, Normal Cognition, No Motor/Sensory Deficits Psychiatric: Depressed Mood, Flat Affect Skin Exam: Warm, Dry, Intact, Jaundice. No: Ecchymosis, Petechiae #1 Interpretation EKG Date: 03/11/21 Time: 18:26 Rhythm: Other (sinus tachycardia) Rate (Beats/Min): 119 [place]: Normal P-Wave: Present ST-T: Normal (nonspecific T abnormalities, lateral leads.) QT: Normal Course - Vital Signs Last Recorded V/S: Last Vital Signs Temp 97.3 F 03/11/21 18:28 Pulse 119 H 03/11/21 18:28 Resp 22 H 03/11/21 18:28 BP 106/82 03/11/21 18:28 Pulse Ox 100 03/11/21 18:28 - Orders/Labs/Meds Orders: Active Orders 24 hr Category Date Time Status Peripheral IV Care [RC] . DIRECTED Care 03/11/21 18:07 Active Chest 1V Frontal [CR] Stat Exams 03/11/21 18:50 Ordered CULTURE BLOOD [BC] Stat Lab 03/11/21 18:15 Results CULTURE BLOOD [BC] Stat Lab 03/11/21 18:20 Received DRUG SCREEN URINE BIORAD [URCHEM] Stat Lab 03/11/21 18:06 Ordered HCG QUALITATIVE,URINE [URCHEM] Stat Lab 03/11/21 18:06 Ordered REFLEX LACTIC ACID YES OR NO [CHEM] Routine Lab 03/11/21 18:48 Received UA RFX LESLIE AND CULT IF INDIC [URIN] Stat Lab 03/11/21 18:07 Ordered Sodium Chloride 0.9% [Saline Flush] Med 03/11/21 18:07 Active 10 ml FLUSH ASDIRECTED PRN Blood Culture x2 Reflex Set [OM.PC] Stat Oth 03/11/21 18:05 Ordered Peripheral IV Insertion Adult [OM.PC] Stat Oth 03/11/21 18:07 Ordered Medication Orders Sodium Chloride (Sodium Chloride 0.9% 10 Ml Syringe) 10 ml FLUSH ASDIRECTED PRN PRN Reason: Keep Vein Open Last Admin: 03/11/21 18:30 Dose: 10 ml Documented by: MAXINE Labs: Laboratory Tests 03/11/21 03/11/21 03/11/21 Range/Units 17:35 18:15 18:15 WBC 8.1 (5.0-10.0) 10^3/uL RBC 4.63 (4.2-5.4) 10^6/uL Hgb 11.2 L (12.0-16.0) g/dL Hct 35.3 L (37.0-47.0) % MCV 76.2 L D (80-100) fL MCH 24.2 L (27.0-34.0) pg MCHC 31.7 L (33.0-35.0) g/dL Plt Count 221 (150-450) 10^3/uL Neut % (Auto) 66.7 (42.2-75.2) % Lymph % (Auto) 24.6 (20.5-50.1) % [place] % (Auto) 6.9 (2-8) % Eos % (Auto) 1.4 (1.0-3.0) % Baso % (Auto) 0.4 (0.0-1.0) % PT (9.0-12.0) SEC INR (0.9-1.2) APTT (22.0-34.0) SEC Sodium 136 (136-145) mmol/L Potassium 3.6 (3.5-5.1) mmol/L Chloride 98 (98-107) mmol/L Carbon Dioxide 23 (21-32) mmol/L Anion Gap 18.6 H (7-13) mEq/L BUN 18 (7-18) mg/dL Creatinine 1.04 H (0.55-1.02) mg/dL Est Cr Clr Drug Dosing TNP Estimated GFR (MDRD) > 60 BUN/Creatinine Ratio 17.3 (No establ ref range) Glucose 93 (70-99) mg/dL Lactic Acid (0.4-2.0) mmol/L Calcium 9.8 (8.5-10.1) mg/dL Phosphorus 4.9 H (2.6-4.7) mg/dL Magnesium 2.1 (1.8-2.4) mg/dL Total Bilirubin 2.5 H (0.2-1.0) mg/dL AST 419 H (15-37) U/L ALT 447 H (14-59) U/L Alkaline Phosphatase 103 (46-116) U/L Ammonia (11-32) umol/L Lactate Dehydrogenase 356 H (81-234) U/L B-Natriuretic Peptide 1110 H (0-100) pg/ml Total Protein 6.7 (6.4-8.2) g/dL Albumin 3.8 (3.4-5.0) g/dL Globulin 2.9 Albumin/Globulin Ratio 1.3 Amylase 40 (25-115) U/L Lipase 306 (73-393) U/L Ethyl Alcohol < 3 (0) mg/dL SARS-CoV-2 RNA ([facility]) Negative (NEGATIVE) 03/11/21 03/11/21 03/11/21 Range/Units 18:15 18:15 18:15 WBC (5.0-10.0) 10^3/uL RBC (4.2-5.4) 10^6/uL Hgb (12.0-16.0) g/dL Hct (37.0-47.0) % MCV (80-100) fL MCH (27.0-34.0) pg MCHC (33.0-35.0) g/dL Plt Count (150-450) 10^3/uL Neut % (Auto) (42.2-75.2) % Lymph % (Auto) (20.5-50.1) % [place] % (Auto) (2-8) % Eos % (Auto) (1.0-3.0) % Baso % (Auto) (0.0-1.0) % PT 14.8 H (9.0-12.0) SEC INR 1.5 H (0.9-1.2) APTT 23.2 (22.0-34.0) SEC Sodium (136-145) mmol/L Potassium (3.5-5.1) mmol/L Chloride (98-107) mmol/L Carbon Dioxide (21-32) mmol/L Anion Gap (7-13) mEq/L BUN (7-18) mg/dL Creatinine (0.55-1.02) mg/dL Est Cr Clr Drug Dosing Estimated GFR (MDRD) BUN/Creatinine Ratio (No establ ref range) Glucose (70-99) mg/dL Lactic Acid 3.0 H* (0.4-2.0) mmol/L Calcium (8.5-10.1) mg/dL Phosphorus (2.6-4.7) mg/dL Magnesium (1.8-2.4) mg/dL Total Bilirubin (0.2-1.0) mg/dL AST (15-37) U/L ALT (14-59) U/L Alkaline Phosphatase (46-116) U/L Ammonia (11-32) umol/L Lactate Dehydrogenase (81-234) U/L B-Natriuretic Peptide (0-100) pg/ml Total Protein (6.4-8.2) g/dL Albumin (3.4-5.0) g/dL Globulin Albumin/Globulin Ratio Amylase (25-115) U/L Lipase (73-393) U/L Ethyl Alcohol (0) mg/dL SARS-CoV-2 RNA ([facility]) (NEGATIVE) 03/11/21 Range/Units 18:15 WBC (5.0-10.0) 10^3/uL RBC (4.2-5.4) 10^6/uL Hgb (12.0-16.0) g/dL Hct (37.0-47.0) % MCV (80-100) fL MCH (27.0-34.0) pg MCHC (33.0-35.0) g/dL Plt Count (150-450) 10^3/uL Neut % (Auto) (42.2-75.2) % Lymph % (Auto) (20.5-50.1) % [place] % (Auto) (2-8) % Eos % (Auto) (1.0-3.0) % Baso % (Auto) (0.0-1.0) % PT (9.0-12.0) SEC INR (0.9-1.2) APTT (22.0-34.0) SEC Sodium (136-145) mmol/L Potassium (3.5-5.1) mmol/L Chloride (98-107) mmol/L Carbon Dioxide (21-32) mmol/L Anion Gap (7-13) mEq/L BUN (7-18) mg/dL Creatinine (0.55-1.02) mg/dL Est Cr Clr Drug Dosing Estimated GFR (MDRD) BUN/Creatinine Ratio (No establ ref range) Glucose (70-99) mg/dL Lactic Acid (0.4-2.0) mmol/L Calcium (8.5-10.1) mg/dL Phosphorus (2.6-4.7) mg/dL Magnesium (1.8-2.4) mg/dL Total Bilirubin (0.2-1.0) mg/dL AST (15-37) U/L ALT (14-59) U/L Alkaline Phosphatase (46-116) U/L Ammonia 16 (11-32) umol/L Lactate Dehydrogenase (81-234) U/L B-Natriuretic Peptide (0-100) pg/ml Total Protein (6.4-8.2) g/dL Albumin (3.4-5.0) g/dL Globulin Albumin/Globulin Ratio Amylase (25-115) U/L Lipase (73-393) U/L Ethyl Alcohol (0) mg/dL SARS-CoV-2 RNA ([facility]) (NEGATIVE) Meds: Medications Generic Name Dose Route Start Last Admin Trade Name Freq PRN Reason Stop Dose Admin Sodium Chloride 10 ml 03/11/21 18:07 03/11/21 18:30 Sodium Chloride 0.9% 10 Ml Syringe FLUSH 10 ml ASDIRECTED PRN Administration Keep Vein Open Discontinued Medications Generic Name Dose Route Start Last Admin Trade Name Maryanne PRN Reason Stop Dose Admin Ondansetron HCl 4 mg 03/11/21 18:08 03/11/21 18:29 Ondansetron 4 Mg/2 Ml Sdv IV 03/11/21 18:09 4 mg ONETIME ONE Administration - Re-Assessments/Exams Free Text/Narrative Re-Assessment/Exam: 03/11/21 18:57 I consulted [facility] for transfer of the pt. They are currently full, but no beds available anywhere else in the region ([facility], [place]). [facility] has placed the pt on a waiting list for transfer and will call when a bed becomes available. Dr. Mai agrees to admit the pt until a bed becomes available at [facility]. Departure - Departure Time of Disposition: 19:00 (admitted to Dr. Mai) Disposition: Admitted As Inpatient 66 Condition: Fair Clinical Impression: Decompensated hepatic cirrhosis, Ascites due to alcoholic cirrhosis - Discharge Information *PRESCRIPTION DRUG MONITORING PROGRAM REVIEWED*: No *COPY OF PRESCRIPTION DRUG MONITORING REPORT IN PATIENT SHEFALI: No Forms: ED Department Discharge Sepsis Event Note (ED) - Focused Exam Vital Signs: Vital Signs Temp Pulse Resp BP Pulse Ox 03/11/21 18:28 97.3 F 119 H 22 H 106/82 100 03/11/21 17:35 97.7 F 114 H 98 - My Orders Last 24 Hours: My Active Orders 03/11/21 18:05 Blood Culture x2 Reflex Set [OM.PC] Stat 03/11/21 18:06 DRUG SCREEN URINE BIORAD [URCHEM] Stat HCG QUALITATIVE,URINE [URCHEM] Stat 03/11/21 18:07 Peripheral IV Care [RC] . DIRECTED UA RFX LESLIE AND CULT IF INDIC [URIN] Stat Sodium Chloride 0.9% [Saline Flush] 10 ml FLUSH ASDIRECTED PRN Peripheral IV Insertion Adult [OM.PC] Stat 03/11/21 18:15 CULTURE BLOOD [BC] Stat 03/11/21 18:20 CULTURE BLOOD [BC] Stat 03/11/21 18:48 REFLEX LACTIC ACID YES OR NO [CHEM] Routine 03/11/21 18:50 Chest 1V Frontal [CR] Stat - Assessment/Plan Last 24 Hours: My Active Orders 03/11/21 18:05 Blood Culture x2 Reflex Set [OM.PC] Stat 03/11/21 18:06 DRUG SCREEN URINE BIORAD [URCHEM] Stat HCG QUALITATIVE,URINE [URCHEM] Stat 03/11/21 18:07 Peripheral IV Care [RC] . DIRECTED UA RFX LESLIE AND CULT IF INDIC [URIN] Stat Sodium Chloride 0.9% [Saline Flush] 10 ml FLUSH ASDIRECTED PRN Peripheral IV Insertion Adult [OM.PC] Stat 03/11/21 18:15 CULTURE BLOOD [BC] Stat 03/11/21 18:20 CULTURE BLOOD [BC] Stat 03/11/21 18:48 REFLEX LACTIC ACID YES OR NO [CHEM] Routine 03/11/21 18:50 Chest 1V Frontal [CR] Stat I have read and agree with the documentation that has been completed regarding this visit. By signing this record, I attest that the documentation was completed in my physical presence and is an accurate record of the encounter.
[2021-03-11] MEDS ORDERED: cefTRIAXone 2 GM in Sodium Chloride 0.9% 100 ML IV ONE (19:13)
[2021-03-11] MEDS ORDERED: Pantoprazole 40 MG Vial IVPUSH ONE (19:15)
[2021-03-11] MEDS ORDERED: Octreotide 100 MCG/ML SDV IVPUSH ONE (19:16)
[2021-03-11] MEDS ORDERED: Octreotide 100 MCG in Sodium Chloride 0.9% 99 ML IV ONE (19:20)
--- NOTE | 2021-03-11 19:30 | CR ---
PROCEDURE INFORMATION: Exam: XR Chest Exam date and time: 03/11/2021 7:06 PM Age: 25 years old Clinical indication: Other: Short of breath, ascites TECHNIQUE: Imaging protocol: XR of the chest. Views: 1 view. COMPARISON: CT Chest Abdomen Pelvis w Cont 02/20/2021 9:17 PM FINDINGS: Lungs: Unremarkable. No consolidation. Pleural spaces: Unremarkable. No pleural effusion. No pneumothorax. Heart/Mediastinum: Unremarkable. No cardiomegaly. Bones/joints: Unremarkable. IMPRESSION: No acute findings.
[2021-03-11 22:10] LABS: AMPHETAMINES,URINE POSITIVE (NEGATIVE); BARBITURATES,URINE NEGATIVE (NEGATIVE); BENZODIAZEPINE,URINE NEGATIVE (NEGATIVE); MDMA (ECSTASY), URINE NEGATIVE (NEGATIVE); METHADONE,URINE NEGATIVE (NEGATIVE); METHAMPHETAMINES,URINE POSITIVE (NEGATIVE); OPIATES,URINE NEGATIVE (NEGATIVE); OXYCODONE,URINE NEGATIVE (NEGATIVE); PHENCYCLIDINE,URINE NEGATIVE (NEGATIVE); TCA,URINE NEGATIVE (NEGATIVE)
== END 2021-03-11 22:57 ==
LOC: DL.ED 15:25
DX: K70.31 Alcoholic cirrhosis of liver with ascites (principal); I50.9 Heart failure, unspecified; J45.909 Unspecified asthma, uncomplicated; Z20.822 Contact with and (suspected) exposure to COVID-19; Z79.899 Other long term (current) drug therapy
CPT/HCPCS: 36415; 71045; 80053; 80305; 80307; 81001; 82140; 82150; 83605; 83615; 83690; 83735; 83880; 84100; 84703; 85025; 85610; 85730; 87040; 87086; 87635; 93005; 96365; 96366; 96367; 96375; 99285; C9113; J0696; J2354; J2405; U0002

== ENCOUNTER 2021-03-15 10:29 | Emergency (ER) | payer OTHER ==
[2021-03-15] MEDS ORDERED: Sodium Chloride 0.9% 10 ML Syringe FLUSH PRN (11:06)
[2021-03-15 11:09] VITALS: BP 121/86; PULSE 130
--- NOTE | 2021-03-15 11:11 | EDM.PDOC ---
<Itz Pickens - Last Filed: 03/15/21 13:35> ED HPI GENERAL MEDICAL PROBLEM - General Chief Complaint: Abdominal Pain Stated Complaint: upper abd pains, vomiting green fluid, swellingeye Time Seen by Provider: 03/15/21 11:05 Source of Information: Reports: Patient History Limitations: Reports: No Limitations - History of Present Illness INITIAL COMMENTS - FREE TEXT/NARRATIVE: 25 y/o F c/o vomiting, dark stools, chest heaviness, sob since last night. Hx of severe liver cirrhosis and had paracentesis last Tues at [facility] in [place]. The pt states she feels like she cant catch her breath. She reports several black stools since last night. No hx of blood clots. Was transfused 2 units last year when her daughter was born. Denies hebert, vision prob, fever, chills, drugs, etoh, recent trauma. Duration: Day(s): Location: Reports: Chest, Abdomen Severity: Moderate Improves with: Reports: None Worsens with: Reports: Movement Lower Abdominal Pain Score (Numeric/FACES): 4 - Related Data Allergies Allergy/AdvReac Type Severity Reaction Status Date / Time No Known Allergies Allergy Verified 03/15/21 11:03 Home Meds: Home Meds Pantoprazole [ProTONIX] 40 mg PO DAILY 02/20/21 [History] Spironolactone 50 mg PO DAILY 02/20/21 [History] Past Medical History - Past Health History Medical/Surgical History: Denies Medical/Surgical History HEENT History: Reports: None Cardiovascular History: Reports: None Respiratory History: Reports: Asthma Gastrointestinal History: Reports: Cirrhosis, Jaundice, Other (See Below) Other Gastrointestinal History: ascites Genitourinary History: Reports: None NEURODIAGNOSTIC TECHNOLOGIST History: Reports: Musculoskeletal History: Reports: None Neurological History: Reports: None Psychiatric History: Reports: Addiction, Anxiety, Depression Endocrine/Metabolic History: Reports: None Hematologic History: Reports: Anemia Immunologic History: Reports: None Oncologic (Cancer) History: Reports: None Dermatologic History: Reports: None - Infectious Disease History Infectious Disease History: Reports: Chicken Pox, Novel Coronavirus - Past Surgical History Head Surgeries/Procedures: Reports: None Musculoskeletal Surgical History: Reports: Other (See Below) Other Musculoskeletal Surgeries/Procedures:: arm Social & Family History - Family History Family Medical History: No Pertinent Family History - Caffeine Use Caffeine Use: Reports: Coffee, Energy Drinks, Soda, Tea, Other - Sexual History Sexual History: Reports: Sexually Active - Living Situation & Occupation Living situation: Reports: with Family ED ROS GENERAL - Review of Systems Review Of Systems: Comprehensive ROS is negative, except as noted in HPI. ED EXAM, GI/ABD - Physical Exam Exam: See Below Exam Limited By: No Limitations General Appearance: Alert, Moderate Distress Eyes: Bilateral: Normal Appearance (Perrl with conjugate gaze) Nose: Normal Inspection, Normal Mucosa, No Blood Throat/Mouth: Normal Inspection, Normal Lips, Normal Teeth, Normal Gums, Normal Oropharynx, Normal Voice, No Airway Compromise Head: Atraumatic, Normocephalic Neck: Normal Inspection, Supple, Non-Tender, Full Range of Motion Respiratory/Chest: Lungs Clear, Normal Breath Sounds, Respiratory Distress (tachypneic clear lungs) Cardiovascular: Normal Peripheral Pulses, Tachycardia GI/Abdominal Exam: Soft, Non-Tender (Female) Exam: Deferred Rectal (Female) Exam: Deferred Back Exam: Normal Inspection, Full Range of Motion Extremities: Normal Inspection, Normal Range of Motion, Non-Tender, Normal Capi llary Refill, No Pedal Edema Neurological: Alert, Oriented, CN II-XII Intact, Normal Cognition, Normal Gait, Normal Reflexes, No Motor/Sensory Deficits Psychiatric: Normal Affect, Normal Mood Skin Exam: Warm, Dry, Intact, Normal Color #1 Interpretation EKG Date: 03/15/21 Time: 11:15 Rhythm: Other (sinus tach) Emery: LAD-Left Emery Deviation P-Wave: Present QRS: Normal ST-T: Depressed (Flipped T v6) Course - Re-Assessments/Exams Free Text/Narrative Re-Assessment/Exam: 03/15/21 13:47 Pt explained that her family has not been taking her to her appointment in [place]. I called [place] and obtained an appointment for the pt on Apr [address] at [address] Paz. Pt also states her family has not filled her prescriptions from [place]. We will send her home with an Rx: for Spironolactone, Protonix. Departure - Departure Time of Disposition: 13:51 Disposition: Home, Self-Care 01 Condition: Good Clinical Impression: Methamphetamine abuse, Lactic acid acidosis, Bacterial vaginosis Cirrhosis of liver Qualifiers: Hepatic cirrhosis type: alcoholic cirrhosis Ascites presence: with ascites Qualified Code(s): K70.31 - Alcoholic cirrhosis of liver with ascites Nausea & vomiting Qualifiers: Vomiting type: bilious vomiting Qualified Code(s): R11.14 - Bilious vomiting - Discharge Information *PRESCRIPTION DRUG MONITORING PROGRAM REVIEWED*: Not Applicable *COPY OF PRESCRIPTION DRUG MONITORING REPORT IN PATIENT SHEFALI: Not Applicable Forms: ED Department Discharge Additional Instructions: RX. Zofran RX: Spironolactone RX: Protonix RX: Flagyl An appointment has been made for you at [facility] in [place] with Dr. Paz on at 1:00PM. Stop using methamphetamines. Do not drink alcohol especially while on Flagyl as it will make you very sick. If any new symptoms or concerns develop contact your primary care facility or return to the ER. <Eduardo Shultz - Last Filed: 03/15/21 14:00> Course - Vital Signs Last Recorded V/S: Last Vital Signs Temp 97.3 F 03/15/21 11:04 Pulse 130 H 03/15/21 11:04 Resp 24 H 03/15/21 11:04 BP 121/86 03/15/21 11:04 Pulse Ox 98 03/15/21 11:04 - Orders/Labs/Meds Orders: Active Orders 24 hr Category Date Time Status Peripheral IV Care [RC] . DIRECTED Care 03/15/21 11:06 Active CORONAVIRUS COVID-19 KEIRA [MOLEC] Stat Lab 03/15/21 11:06 Ordered CULTURE BLOOD [BC] Stat Lab 03/15/21 10:47 Results CULTURE BLOOD [BC] Stat Lab 03/15/21 10:52 Received CULTURE URINE [RM] Stat Lab 03/15/21 13:21 Received LACTIC ACID [CHEM] Routine Lab 03/15/21 13:40 Ordered Sodium Chloride 0.9% [Saline Flush] Med 03/15/21 11:06 Active 10 ml FLUSH ASDIRECTED PRN Blood Culture x2 Reflex Set [OM.PC] Stat Oth 03/15/21 11:04 Ordered Peripheral IV Insertion Adult [OM.PC] Stat Oth 03/15/21 11:05 Ordered Medication Orders Sodium Chloride (Sodium Chloride 0.9% 10 Ml Syringe) 10 ml FLUSH ASDIRECTED PRN PRN Reason: Keep Vein Open Last Admin: 03/15/21 11:42 Dose: 10 ml Documented by: KARLY Labs: Laboratory Tests 03/15/21 03/15/21 03/15/21 Range/Units 10:52 10:52 10:52 WBC 8.9 (5.0-10.0) 10^3/uL RBC 5.01 (4.2-5.4) 10^6/uL Hgb 12.3 (12.0-16.0) g/dL Hct 38.8 (37.0-47.0) % MCV 77.4 L (80-100) fL MCH 24.6 L (27.0-34.0) pg MCHC 31.7 L (33.0-35.0) g/dL Plt Count 226 (150-450) 10^3/uL Neut % (Auto) 82.6 H (42.2-75.2) % Lymph % (Auto) 11.3 L (20.5-50.1) % [place] % (Auto) 5.1 (2-8) % Eos % (Auto) 0.6 L (1.0-3.0) % Baso % (Auto) 0.4 (0.0-1.0) % PT 12.7 H (9.0-12.0) SEC INR 1.3 H (0.9-1.2) APTT 22.4 (22.0-34.0) SEC Sodium 139 (136-145) mmol/L Potassium 3.6 (3.5-5.1) mmol/L Chloride 101 (98-107) mmol/L Carbon Dioxide 23 (21-32) mmol/L Anion Gap 18.6 H (7-13) mEq/L BUN 14 (7-18) mg/dL Creatinine 1.07 H (0.55-1.02) mg/dL Est Cr Clr Drug Dosing 66.49 mL/min Estimated GFR (MDRD) > 60 BUN/Creatinine Ratio 13.1 (No establ ref range) Glucose 108 H (70-99) mg/dL Lactic Acid (0.4-2.0) mmol/L Calcium 8.8 (8.5-10.1) mg/dL Total Bilirubin 2.2 H (0.2-1.0) mg/dL AST 143 H (15-37) U/L ALT 286 H (14-59) U/L Alkaline Phosphatase 102 (46-116) U/L Ammonia (11-32) umol/L Lactate Dehydrogenase 303 H (81-234) U/L Troponin I High Sens 27 (<=51) pg/mL B-Natriuretic Peptide 1180 H (0-100) pg/ml Total Protein 7.2 (6.4-8.2) g/dL Albumin 3.8 (3.4-5.0) g/dL Globulin 3.4 Albumin/Globulin Ratio 1.1 Amylase 45 (25-115) U/L Lipase 243 (73-393) U/L Urine Color (YELLOW) Urine Appearance (CLEAR) Urine pH (5.0-9.0) Ur Specific [place] (1.005-1.030) Urine Protein (NEGATIVE) Urine Glucose (UA) (NEGATIVE) Urine Ketones (NEGATIVE) Urine Occult Blood (NEGATIVE) Urine Nitrite (NEGATIVE) Urine Bilirubin (NEGATIVE) Urine Urobilinogen (0.2-1.0) mg/dL Ur Leukocyte Esterase (NEGATIVE) Urine RBC (0-5) /HPF Urine WBC (0-5/HPF) /HPF Ur Epithelial Cells (NOT SEEN) /HPF Urine Bacteria (0-FEW/HPF) /HPF Urine Mucus (NOT SEEN) /LPF Urine Opiates Screen (NEGATIVE) Ur Oxycodone Screen (NEGATIVE) Urine Methadone Screen (NEGATIVE) Ur Barbiturates Screen (NEGATIVE) U Tricyclic Antidepress (NEGATIVE) Ur Phencyclidine Scrn (NEGATIVE) Ur Amphetamine Screen (NEGATIVE) U Methamphetamines Scrn (NEGATIVE) Urine MDMA Screen (NEGATIVE) U Benzodiazepines Scrn (NEGATIVE) Urine Cocaine Screen (NEGATIVE) U Marijuana (THC) Screen (NEGATIVE) Ethyl Alcohol < 3 (0) mg/dL 03/15/21 03/15/21 03/15/21 Range/Units 10:52 10:52 13:21 WBC (5.0-10.0) 10^3/uL RBC (4.2-5.4) 10^6/uL Hgb (12.0-16.0) g/dL Hct (37.0-47.0) % MCV (80-100) fL MCH (27.0-34.0) pg MCHC (33.0-35.0) g/dL Plt Count (150-450) 10^3/uL Neut % (Auto) (42.2-75.2) % Lymph % (Auto) (20.5-50.1) % [place] % (Auto) (2-8) % Eos % (Auto) (1.0-3.0) % Baso % (Auto) (0.0-1.0) % PT (9.0-12.0) SEC INR (0.9-1.2) APTT (22.0-34.0) SEC Sodium (136-145) mmol/L Potassium (3.5-5.1) mmol/L Chloride (98-107) mmol/L Carbon Dioxide (21-32) mmol/L Anion Gap (7-13) mEq/L BUN (7-18) mg/dL Creatinine (0.55-1.02) mg/dL Est Cr Clr Drug Dosing mL/min Estimated GFR (MDRD) BUN/Creatinine Ratio (No establ ref range) Glucose (70-99) mg/dL Lactic Acid 4.3 H* (0.4-2.0) mmol/L Calcium (8.5-10.1) mg/dL Total Bilirubin (0.2-1.0) mg/dL AST (15-37) U/L ALT (14-59) U/L Alkaline Phosphatase (46-116) U/L Ammonia 14 (11-32) umol/L Lactate Dehydrogenase (81-234) U/L Troponin I High Sens (<=51) pg/mL B-Natriuretic Peptide (0-100) pg/ml Total Protein (6.4-8.2) g/dL Albumin (3.4-5.0) g/dL Globulin Albumin/Globulin Ratio Amylase (25-115) U/L Lipase (73-393) U/L Urine Color (YELLOW) Urine Appearance (CLEAR) Urine pH (5.0-9.0) Ur Specific [place] (1.005-1.030) Urine Protein (NEGATIVE) Urine Glucose (UA) (NEGATIVE) Urine Ketones (NEGATIVE) Urine Occult Blood (NEGATIVE) Urine Nitrite (NEGATIVE) Urine Bilirubin (NEGATIVE) Urine Urobilinogen (0.2-1.0) mg/dL Ur Leukocyte Esterase (NEGATIVE) Urine RBC (0-5) /HPF Urine WBC (0-5/HPF) /HPF Ur Epithelial Cells (NOT SEEN) /HPF Urine Bacteria (0-FEW/HPF) /HPF Urine Mucus (NOT SEEN) /LPF Urine Opiates Screen Positive H (NEGATIVE) Ur Oxycodone Screen Negative (NEGATIVE) Urine Methadone Screen Negative (NEGATIVE) Ur Barbiturates Screen Negative (NEGATIVE) U Tricyclic Antidepress Negative (NEGATIVE) Ur Phencyclidine Scrn Negative (NEGATIVE) Ur Amphetamine Screen Positive H (NEGATIVE) U Methamphetamines Scrn Positive H (NEGATIVE) Urine MDMA Screen Negative (NEGATIVE) U Benzodiazepines Scrn Negative (NEGATIVE) Urine Cocaine Screen Negative (NEGATIVE) U Marijuana (THC) Screen Positive H (NEGATIVE) Ethyl Alcohol (0) mg/dL 03/15/21 Range/Units 13:21 WBC (5.0-10.0) 10^3/uL RBC (4.2-5.4) 10^6/uL Hgb (12.0-16.0) g/dL Hct (37.0-47.0) % MCV (80-100) fL MCH (27.0-34.0) pg MCHC (33.0-35.0) g/dL Plt Count (150-450) 10^3/uL Neut % (Auto) (42.2-75.2) % Lymph % (Auto) (20.5-50.1) % [place] % (Auto) (2-8) % Eos % (Auto) (1.0-3.0) % Baso % (Auto) (0.0-1.0) % PT (9.0-12.0) SEC INR (0.9-1.2) APTT (22.0-34.0) SEC Sodium (136-145) mmol/L Potassium (3.5-5.1) mmol/L Chloride (98-107) mmol/L Carbon Dioxide (21-32) mmol/L Anion Gap (7-13) mEq/L BUN (7-18) mg/dL Creatinine (0.55-1.02) mg/dL Est Cr Clr Drug Dosing mL/min Estimated GFR (MDRD) BUN/Creatinine Ratio (No establ ref range) Glucose (70-99) mg/dL Lactic Acid (0.4-2.0) mmol/L Calcium (8.5-10.1) mg/dL Total Bilirubin (0.2-1.0) mg/dL AST (15-37) U/L ALT (14-59) U/L Alkaline Phosphatase (46-116) U/L Ammonia (11-32) umol/L Lactate Dehydrogenase (81-234) U/L Troponin I High Sens (<=51) pg/mL B-Natriuretic Peptide (0-100) pg/ml Total Protein (6.4-8.2) g/dL Albumin (3.4-5.0) g/dL Globulin Albumin/Globulin Ratio Amylase (25-115) U/L Lipase (73-393) U/L Urine Color [place] (YELLOW) Urine Appearance Slightly cloudy (CLEAR) Urine pH 5.5 (5.0-9.0) Ur Specific [place] >= 1.030 (1.005-1.030) Urine Protein >=300 H (NEGATIVE) Urine Glucose (UA) Negative (NEGATIVE) Urine Ketones 15 H (NEGATIVE) Urine Occult Blood Trace-intact H (NEGATIVE) Urine Nitrite Negative (NEGATIVE) Urine Bilirubin Moderate H (NEGATIVE) Urine Urobilinogen 1.0 (0.2-1.0) mg/dL Ur Leukocyte Esterase Trace H (NEGATIVE) Urine RBC 0-5 (0-5) /HPF Urine WBC 10-20 H (0-5/HPF) /HPF Ur Epithelial Cells Many H (NOT SEEN) /HPF Urine Bacteria Moderate H (0-FEW/HPF) /HPF Urine Mucus Moderate H (NOT SEEN) /LPF Urine Opiates Screen (NEGATIVE) Ur Oxycodone Screen (NEGATIVE) Urine Methadone Screen (NEGATIVE) Ur Barbiturates Screen (NEGATIVE) U Tricyclic Antidepress (NEGATIVE) Ur Phencyclidine Scrn (NEGATIVE) Ur Amphetamine Screen (NEGATIVE) U Methamphetamines Scrn (NEGATIVE) Urine MDMA Screen (NEGATIVE) U Benzodiazepines Scrn (NEGATIVE) Urine Cocaine Screen (NEGATIVE) U Marijuana (THC) Screen (NEGATIVE) Ethyl Alcohol (0) mg/dL Meds: Medications Generic Name Dose Route Start Last Admin Trade Name Freq PRN Reason Stop Dose Admin Sodium Chloride 10 ml 03/15/21 11:06 03/15/21 11:42 Sodium Chloride 0.9% 10 Ml Syringe FLUSH 10 ml ASDIRECTED PRN Administration Keep Vein Open Discontinued Medications Generic Name Dose Route Start Last Admin Trade Name Freq PRN Reason Stop Dose Admin Hydromorphone HCl 0.5 mg 03/15/21 11:22 03/15/21 11:43 Hydromorphone 0.5 Mg/0.5 Ml Syringe IVPUSH 03/15/21 11:23 0.5 mg ONETIME ONE Administration Ondansetron HCl 4 mg 03/15/21 11:15 03/15/21 11:42 Ondansetron 4 Mg/2 Ml Sdv IV 03/15/21 11:16 4 mg ONETIME ONE Administration Sepsis Event Note (ED) - Focused Exam Vital Signs: Vital Signs Temp Pulse Resp BP Pulse Ox 03/15/21 11:04 97.3 F 130 H 24 H 121/86 98 - My Orders Last 24 Hours: My Active Orders 03/15/21 10:47 CULTURE BLOOD [BC] Stat 03/15/21 10:52 CULTURE BLOOD [BC] Stat 03/15/21 11:04 Blood Culture x2 Reflex Set [OM.PC] Stat 03/15/21 11:05 Peripheral IV Insertion Adult [OM.PC] Stat 03/15/21 11:06 Peripheral IV Care [RC] . DIRECTED CORONAVIRUS COVID-19 KEIRA [MOLEC] Stat Sodium Chloride 0.9% [Saline Flush] 10 ml FLUSH ASDIRECTED PRN 03/15/21 13:21 CULTURE URINE [RM] Stat 03/15/21 13:40 LACTIC ACID [CHEM] Routine - Assessment/Plan Last 24 Hours: My Active Orders 03/15/21 10:47 CULTURE BLOOD [BC] Stat 03/15/21 10:52 CULTURE BLOOD [BC] Stat 03/15/21 11:04 Blood Culture x2 Reflex Set [OM.PC] Stat 03/15/21 11:05 Peripheral IV Insertion Adult [OM.PC] Stat 03/15/21 11:06 Peripheral IV Care [RC] . DIRECTED CORONAVIRUS COVID-19 KEIRA [MOLEC] Stat Sodium Chloride 0.9% [Saline Flush] 10 ml FLUSH ASDIRECTED PRN 03/15/21 13:21 CULTURE URINE [RM] Stat 03/15/21 13:40 LACTIC ACID [CHEM] Routine
[2021-03-15] MEDS ORDERED: Ondansetron 4 MG/2 ML SDV IV ONE (11:15)
[2021-03-15] MEDS ORDERED: HYDROmorphone 0.5 MG/0.5 ML Syringe IVPUSH ONE (11:22)
[2021-03-15 11:31] LABS: PTT,PARTIAL THROMBOPLSTIN TIME 22.4 SEC (22.0-34.0)
[2021-03-15 11:37] LABS: ANION GAP 18.6 mEq/L (7-13); CHLORIDE,CL 101 mmol/L (98-107); SODIUM,NA 139 mmol/L (136-145)
--- NOTE | 2021-03-15 13:01 | CR ---
EXAMINATION: Chest 1V Frontal SEX: Female AGE: 25 years CLINICAL HISTORY: 25-year-old female with chest pain and shortness of breath (ascites). Interpretation: Prominent cardiac silhouette and although heart unchanged in size/configuration since recent 11 March 2021 exam suggest considering possible early chamber enlargement and/or pericardial effusion. EKG? Ultrasound? Technique? No acute new cardiopulmonary abnormality i.e. no pulmonary vascular congestion, alveolar edema or dependent pleural fluid accumulation (no pleural effusions). No lung mass or hilar adenopathy. No alveolar consolidation, air bronchograms or peripheral groundglass" interstitial lung densities. No pneumothorax or pneumomediastinum. Midline tracheobronchial airway unremarkable. External investment analyst leads. Gown snaps. CONCLUSION: No new cardiopulmonary abnormality (see comments above regarding cardiac silhouette).
[2021-03-15 13:39] LABS: AMPHETAMINES,URINE POSITIVE (NEGATIVE); BARBITURATES,URINE NEGATIVE (NEGATIVE); BENZODIAZEPINE,URINE NEGATIVE (NEGATIVE); MDMA (ECSTASY), URINE NEGATIVE (NEGATIVE); METHADONE,URINE NEGATIVE (NEGATIVE); METHAMPHETAMINES,URINE POSITIVE (NEGATIVE); OPIATES,URINE POSITIVE (NEGATIVE); OXYCODONE,URINE NEGATIVE (NEGATIVE); PHENCYCLIDINE,URINE NEGATIVE (NEGATIVE); TCA,URINE NEGATIVE (NEGATIVE)
== END 2021-03-15 14:15 | disposition home or self-care (01) ==
LOC: DL.ED 10:29
DX: K70.31 Alcoholic cirrhosis of liver with ascites (principal); N76.0 Acute vaginitis; B96.89 Other specified bacterial agents as the cause of diseases classified elsewhere; R11.2 Nausea with vomiting, unspecified; F15.10 Other stimulant abuse, uncomplicated; E87.2 Acidosis; Z79.899 Other long term (current) drug therapy
CPT/HCPCS: 36415; 71045; 80053; 80305; 80307; 81001; 82140; 82150; 82272; 83605; 83615; 83690; 83880; 84484; 85025; 85610; 85730; 87040; 87086; 93005; 96374; 96375; 99285; J1170; J2405

== ENCOUNTER 2021-03-16 17:40 | Emergency (ER) | payer OTHER ==
[2021-03-16 18:22] VITALS: BP 107/79; PULSE 127
--- NOTE | 2021-03-16 18:38 | EDM.PDOC ---
<Itz Pickens C - Last Filed: 03/16/21 18:38> ED HPI GENERAL MEDICAL PROBLEM - General Chief Complaint: Abdominal Pain Stated Complaint: HEADACHE, CHILLS, STOMACH PAIN Time Seen by Provider: 03/16/21 18:35 History Limitations: Reports: No Limitations - History of Present Illness INITIAL COMMENTS - FREE TEXT/NARRATIVE: 25 y/o F pt c/o increased sob, cough, and upper abd pn since last night. Pt was thoroughly evaluated yesterday for her cirrhosis, cough, tachycardia, fatigue. She states that last night her breathing became worse and she now feels sob at rest. Pt states she has had a persistent cough that is increasing in frequency. 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 Yesterday and appointment was made for her at [facility] with the Gi doctors however the pt will not be able to get in until April. She tested negative for COVID yesterday and positive for methamphetamines. She reports that she tried taking the antinausea medication but continued to have vomiting throughout the night. She also reports chills and feeling clammy but has not had a fever when she's checked it tympanically . Onset Date: 03/08/21 Onset Time: 22:00 Duration: Day(s): Location: Reports: Chest, Abdomen Severity: Severe abdomen Pain Score (Numeric/FACES): 7 - Related Data Allergies Allergy/AdvReac Type Severity Reaction Status Date / Time No Known Allergies Allergy Verified 03/16/21 18:22 Home Meds: Home Meds Pantoprazole [ProTONIX] 40 mg PO DAILY 02/20/21 [History] Spironolactone 50 mg PO DAILY 02/20/21 [History] Ondansetron [Zofran ODT] 4 mg PO Q6H PRN 03/16/21 [History] Past Medical History - Past Health History Medical/Surgical History: Denies Medical/Surgical History HEENT History: Reports: None Cardiovascular History: Reports: None Respiratory History: Reports: Asthma Gastrointestinal History: Reports: Cirrhosis, Jaundice, Other (See Below) Other Gastrointestinal History: ascites Genitourinary History: Reports: None 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: Musculoskeletal History: Reports: None Neurological History: Reports: None Psychiatric History: Reports: Addiction, Anxiety, Depression Endocrine/Metabolic History: Reports: None Hematologic History: Reports: Anemia Immunologic History: Reports: None Oncologic (Cancer) History: Reports: None Dermatologic History: Reports: None - Infectious Disease History Infectious Disease History: Reports: Chicken Pox, Novel Coronavirus - Past Surgical History Head Surgeries/Procedures: Reports: None Musculoskeletal Surgical History: Reports: Other (See Below) Other Musculoskeletal Surgeries/Procedures:: arm Social & Family History - Family History Family Medical History: No Pertinent Family History - Tobacco Use Tobacco Use Status *Q: Never Tobacco User Second Hand Smoke Exposure: No - Caffeine Use Caffeine Use: Reports: Coffee, Energy Drinks, Soda, Tea, Other - Recreational Drug Use Recreational Drug Use: No - Sexual History Sexual History: Reports: Sexually Active - Living Situation & Occupation Living situation: Reports: with Family ED ROS GENERAL - Review of Systems Review Of Systems: Comprehensive ROS is negative, except as noted in HPI. ED EXAM, GENERAL - Physical Exam Exam: See Below Exam Limited By: No Limitations General Appearance: Alert, Anxious Eye Exam: Bilateral Eye: PERRL Nose: Normal Inspection, Normal Mucosa, No Blood Throat/Mouth: Normal Inspection, Normal Lips, Normal Teeth, Normal Gums, Normal Oropharynx, Normal Voice, No Airway Compromise Head: Atraumatic, Normocephalic Neck: Supple, Non-Tender Respiratory/Chest: Lungs Clear Cardiovascular: Normal Peripheral Pulses, Tachycardia GI/Abdominal: Soft, Non-Tender Back Exam: Normal Inspection, Full Range of Motion Extremities: Normal Inspection, Normal Range of Motion, Non-Tender, Normal Capillary Refill, No Pedal Edema Neurological: Alert, Oriented, Normal Cognition Psychiatric: Anxious Skin Exam: Warm, Dry, Intact Departure - Departure Disposition: Home, Self-Care 01 Clinical Impression: Positive urine drug screen, Cough, Elevated brain natriuretic peptide (BNP) level Cirrhosis of liver Qualifiers: Hepatic cirrhosis type: alcoholic cirrhosis Ascites presence: with ascites Qualified Code(s): K70.31 - Alcoholic cirrhosis of liver with ascites - Discharge Information Instructions: Cirrhosis Forms: ED Department Discharge Additional Instructions: liimit fluids take home medications as prescribed especially spironolactone avoid meth use go to follow up appointments as sceduled Sepsis Event Note (ED) - Evaluation Sepsis Screening Result: Possible Sepsis Risk <Etta Conklin - Last Filed: 03/16/21 21:08> ED EXAM, GENERAL - Physical Exam Ears: Hearing Grossly Normal Respiratory/Chest: No Respiratory Distress GI/Abdominal: Abnormal Bowel Sounds (hyperactive) Course - Vital Signs Last Recorded V/S: Last Vital Signs Temp 99.3 F 03/16/21 18:17 Pulse 127 H 03/16/21 18:17 Resp 22 H 03/16/21 18:17 BP 107/79 03/16/21 18:17 Pulse Ox 99 03/16/21 18:17 - Orders/Labs/Meds Orders: Active Orders 24 hr Category Date Time Status CULTURE BLOOD [BC] Stat Lab 03/16/21 20:25 Received CULTURE BLOOD [BC] Stat Lab 03/16/21 20:25 Received Blood Culture x2 Reflex Set [OM.PC] Stat Oth 03/16/21 19:55 Ordered Labs: Laboratory Tests 03/16/21 03/16/21 03/16/21 Range/Units 19:26 19:26 19:26 WBC 11.6 H (5.0-10.0) 10^3/uL RBC 4.56 (4.2-5.4) 10^6/uL Hgb 11.1 L (12.0-16.0) g/dL Hct 34.6 L (37.0-47.0) % MCV 75.9 L (80-100) fL MCH 24.3 L (27.0-34.0) pg MCHC 32.1 L (33.0-35.0) g/dL Plt Count 206 (150-450) 10^3/uL Neut % (Auto) 83.0 H (42.2-75.2) % Lymph % (Auto) 10.4 L (20.5-50.1) % Lee % (Auto) 6.2 (2-8) % Eos % (Auto) 0.2 L (1.0-3.0) % Baso % (Auto) 0.2 (0.0-1.0) % Sodium 135 L (136-145) mmol/L Potassium 4.2 (3.5-5.1) mmol/L Chloride 99 (98-107) mmol/L Carbon Dioxide 23 (21-32) mmol/L Anion Gap 17.2 H (7-13) mEq/L BUN 15 (7-18) mg/dL Creatinine 1.30 H (0.55-1.02) mg/dL Est Cr Clr Drug Dosing 54.72 mL/min Estimated GFR (MDRD) 50 BUN/Creatinine Ratio 11.5 (No establ ref range) Glucose 113 H (70-99) mg/dL Lactic Acid 3.6 H* (0.4-2.0) mmol/L Calcium 8.8 (8.5-10.1) mg/dL Total Bilirubin 2.6 H (0.2-1.0) mg/dL AST 91 H (15-37) U/L ALT 202 H (14-59) U/L Alkaline Phosphatase 85 (46-116) U/L Ammonia (11-32) umol/L Total Protein 6.2 L (6.4-8.2) g/dL Albumin 3.3 L (3.4-5.0) g/dL Globulin 2.9 Albumin/Globulin Ratio 1.14 Urine Color (YELLOW) Urine Appearance (CLEAR) Urine pH (5.0-9.0) Ur Specific [place] (1.005-1.030) Urine Protein (NEGATIVE) Urine Glucose (UA) (NEGATIVE) Urine Ketones (NEGATIVE) Urine Occult Blood (NEGATIVE) Urine Nitrite (NEGATIVE) Urine Bilirubin (NEGATIVE) Urine Urobilinogen (0.2-1.0) mg/dL Ur Leukocyte Esterase (NEGATIVE) Urine RBC (0-5) /HPF Urine WBC (0-5/HPF) /HPF Ur Epithelial Cells (NOT SEEN) /HPF Amorphous Sediment (NOT SEEN) /HPF Urine Bacteria (0-FEW/HPF) /HPF Urine Mucus (NOT SEEN) /LPF Urine Opiates Screen (NEGATIVE) Ur Oxycodone Screen (NEGATIVE) Urine Methadone Screen (NEGATIVE) Ur Barbiturates Screen (NEGATIVE) U Tricyclic Antidepress (NEGATIVE) Ur Phencyclidine Scrn (NEGATIVE) Ur Amphetamine Screen (NEGATIVE) U Methamphetamines Scrn (NEGATIVE) Urine MDMA Screen (NEGATIVE) U Benzodiazepines Scrn (NEGATIVE) Urine Cocaine Screen (NEGATIVE) U Marijuana (THC) Screen (NEGATIVE) 03/16/21 03/16/21 03/16/21 Range/Units 20:06 20:06 20:25 WBC (5.0-10.0) 10^3/uL RBC (4.2-5.4) 10^6/uL Hgb (12.0-16.0) g/dL Hct (37.0-47.0) % MCV (80-100) fL MCH (27.0-34.0) pg MCHC (33.0-35.0) g/dL Plt Count (150-450) 10^3/uL Neut % (Auto) (42.2-75.2) % Lymph % (Auto) (20.5-50.1) % Lee % (Auto) (2-8) % Eos % (Auto) (1.0-3.0) % Baso % (Auto) (0.0-1.0) % Sodium (136-145) mmol/L Potassium (3.5-5.1) mmol/L Chloride (98-107) mmol/L Carbon Dioxide (21-32) mmol/L Anion Gap (7-13) mEq/L BUN (7-18) mg/dL Creatinine (0.55-1.02) mg/dL Est Cr Clr Drug Dosing mL/min Estimated GFR (MDRD) BUN/Creatinine Ratio (No establ ref range) Glucose (70-99) mg/dL Lactic Acid (0.4-2.0) mmol/L Calcium (8.5-10.1) mg/dL Total Bilirubin (0.2-1.0) mg/dL AST (15-37) U/L ALT (14-59) U/L Alkaline Phosphatase (46-116) U/L Ammonia 10 L (11-32) umol/L Total Protein (6.4-8.2) g/dL Albumin (3.4-5.0) g/dL Globulin Albumin/Globulin Ratio Urine Color Dark yellow (YELLOW) Urine Appearance Slightly cloudy (CLEAR) Urine pH 6.0 (5.0-9.0) Ur Specific [place] >= 1.030 (1.005-1.030) Urine Protein 30 H (NEGATIVE) Urine Glucose (UA) Negative (NEGATIVE) Urine Ketones Trace H (NEGATIVE) Urine Occult Blood Negative (NEGATIVE) Urine Nitrite Negative (NEGATIVE) Urine Bilirubin Small H (NEGATIVE) Urine Urobilinogen 1.0 (0.2-1.0) mg/dL Ur Leukocyte Esterase Negative (NEGATIVE) Urine RBC 0-5 (0-5) /HPF Urine WBC 0-5 (0-5/HPF) /HPF Ur Epithelial Cells Few (NOT SEEN) /HPF Amorphous Sediment Moderate H (NOT SEEN) /HPF Urine Bacteria Few (0-FEW/HPF) /HPF Urine Mucus Many H (NOT SEEN) /LPF Urine Opiates Screen Negative (NEGATIVE) Ur Oxycodone Screen Negative (NEGATIVE) Urine Methadone Screen Negative (NEGATIVE) Ur Barbiturates Screen Negative (NEGATIVE) U Tricyclic Antidepress Negative (NEGATIVE) Ur Phencyclidine Scrn Negative (NEGATIVE) Ur Amphetamine Screen Positive H (NEGATIVE) U Methamphetamines Scrn Positive H (NEGATIVE) Urine MDMA Screen Negative (NEGATIVE) U Benzodiazepines Scrn Negative (NEGATIVE) Urine Cocaine Screen Negative (NEGATIVE) U Marijuana (THC) Screen Positive H (NEGATIVE) - Re-Assessments/Exams Free Text/Narrative Re-Assessment/Exam: 03/16/21 21:07 Denied meth use for past 2-3 weeks despite numerous positve drug screens. States is taking medication that has been recently prescribed. Discussed need for ongoing follow up and adherence to medications. Departure - Departure Time of Disposition: 21:04 Condition: Fair - Discharge Information *PRESCRIPTION DRUG MONITORING PROGRAM REVIEWED*: No *COPY OF PRESCRIPTION DRUG MONITORING REPORT IN PATIENT SHEFALI: No Sepsis Event Note (ED) - Focused Exam Vital Signs: Vital Signs Temp Pulse Resp BP Pulse Ox 03/16/21 18:17 99.3 F 127 H 22 H 107/79 99 - My Orders Last 24 Hours: My Active Orders 03/16/21 19:55 Blood Culture x2 Reflex Set [OM.PC] Stat 03/16/21 20:25 CULTURE BLOOD [BC] Stat CULTURE BLOOD [BC] Stat - Assessment/Plan Last 24 Hours: My Active Orders 03/16/21 19:55 Blood Culture x2 Reflex Set [OM.PC] Stat 03/16/21 20:25 CULTURE BLOOD [BC] Stat CULTURE BLOOD [BC] Stat
[2021-03-16 19:51] LABS: ANION GAP 17.2 mEq/L (7-13)
[2021-03-16 20:20] LABS: AMPHETAMINES,URINE POSITIVE (NEGATIVE); BARBITURATES,URINE NEGATIVE (NEGATIVE); BENZODIAZEPINE,URINE NEGATIVE (NEGATIVE); MDMA (ECSTASY), URINE NEGATIVE (NEGATIVE); METHADONE,URINE NEGATIVE (NEGATIVE); METHAMPHETAMINES,URINE POSITIVE (NEGATIVE); OPIATES,URINE NEGATIVE (NEGATIVE); OXYCODONE,URINE NEGATIVE (NEGATIVE); PHENCYCLIDINE,URINE NEGATIVE (NEGATIVE); TCA,URINE NEGATIVE (NEGATIVE)
--- NOTE | 2021-03-16 20:56 | CR ---
PROCEDURE INFORMATION: Exam: XR Chest Exam date and time: 03/16/2021 7:09 PM Age: 25 years old Clinical indication: Shortness of breath; Additional info: Cough, elev. Bnp 1100. HX cirrhosis TECHNIQUE: Imaging protocol: XR of the chest. Views: 2 views. COMPARISON: CR Chest 1V Frontal 03/15/2021 11:12 AM FINDINGS: Lungs: No focal consolidation Pleural spaces: Unremarkable. No pleural effusion. No pneumothorax. Heart/Mediastinum: [id number] cardiac enlargement Bones/joints: Unremarkable. IMPRESSION: [id number] cardiac enlargement
== END 2021-03-16 21:13 | disposition home or self-care (01) ==
LOC: DL.ED 17:40
DX: K70.31 Alcoholic cirrhosis of liver with ascites (principal); R79.1 Abnormal coagulation profile; R82.5 Elevated urine levels of drugs, medicaments and biological substances; R05 Cough; J45.909 Unspecified asthma, uncomplicated; Z79.899 Other long term (current) drug therapy; Z86.16 Personal history of COVID-19
CPT/HCPCS: 36415; 71046; 80053; 80305-QW; 81001; 82140; 83605; 85025; 87040; 99285-25

== ENCOUNTER 2021-03-18 12:03 | Emergency (ER) | payer OTHER ==
[2021-03-18 11:59] VITALS: BP 112/81; PULSE 120
--- NOTE | 2021-03-18 12:05 | EDM.PDOC ---
ED HPI GENERAL MEDICAL PROBLEM - General Chief Complaint: Abdominal Pain Stated Complaint: IN BY [facility] Time Seen by Provider: 03/18/21 11:50 Source of Information: Reports: Patient History Limitations: Reports: No Limitations - History of Present Illness INITIAL COMMENTS - FREE TEXT/NARRATIVE: This 25 yo female patient reports to the ED with increased abdominal pain and increased shortness of breath. The patient reports her symptoms are similar to her symptoms from the past week. The patient reports she did smoke some marijuana last night and about 3 hours after smoking the marijuana she felt light headed as saw "spots". The patient reports no additional similar episodes. The patient denies any use of meth for the past month. Onset: Unknown/Unsure Duration: Week(s):, Constant Location: Reports: Chest, Abdomen Quality: Reports: Pressure Severity: Moderate Improves with: Reports: None Worsens with: Reports: None Context: Reports: Other Associated Symptoms: Reports: Shortness of Breath Right Lower Abdomen Pain Score (Numeric/FACES): 6 - Related Data Allergies Allergy/AdvReac Type Severity Reaction Status Date / Time No Known Allergies Allergy Verified 03/18/21 11:59 Home Meds: Home Meds Pantoprazole [ProTONIX] 40 mg PO DAILY 02/20/21 [History] Spironolactone 50 mg PO DAILY 02/20/21 [History] Ondansetron [Zofran ODT] 4 mg PO Q6H PRN 03/16/21 [History] Past Medical History - Past Health History Medical/Surgical History: Denies Medical/Surgical History HEENT History: Reports: None Cardiovascular History: Reports: None Respiratory History: Reports: Asthma Gastrointestinal History: Reports: Cirrhosis, Jaundice, Other (See Below) Other Gastrointestinal History: ascites Genitourinary History: Reports: None [employer]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: Reports: Musculoskeletal History: Reports: None Neurological History: Reports: None Psychiatric History: Reports: Addiction, Anxiety, Depression Endocrine/Metabolic History: Reports: None Hematologic History: Reports: Anemia Immunologic History: Reports: None Oncologic (Cancer) History: Reports: None Dermatologic History: Reports: None - Infectious Disease History Infectious Disease History: Reports: Chicken Pox, Novel Coronavirus - Past Surgical History Head Surgeries/Procedures: Reports: None Musculoskeletal Surgical History: Reports: Other (See Below) Other Musculoskeletal Surgeries/Procedures:: arm Social & Family History - Family History Family Medical History: No Pertinent Family History - Caffeine Use Caffeine Use: Reports: Coffee, Energy Drinks, Soda, Tea, Other - Sexual History Sexual History: Reports: Sexually Active - Living Situation & Occupation Living situation: Reports: with Family ED ROS GENERAL - Review of Systems Review Of Systems: Comprehensive ROS is negative, except as noted in HPI. ED EXAM, GI/ABD - Physical Exam Exam: See Below Exam Limited By: No Limitations General Appearance: Alert, WD/WN, Moderate Distress Eyes: Bilateral: Normal Appearance, EOMI Ears: Normal External Exam, Normal Canal, Hearing Grossly Normal, Normal TMs Nose: Normal Inspection, Normal Mucosa, No Blood Throat/Mouth: Normal Inspection, Normal Lips, Normal Teeth, Normal Gums, Normal Oropharynx, Normal Voice, No Airway Compromise Head: Atraumatic, Normocephalic Neck: Normal Inspection, Supple, Non-Tender, Full Range of Motion Respiratory/Chest: Decreased Breath Sounds, Other (Increased work of breathing) Cardiovascular: No Edema, No Gallop, No JVD, No Murmur, No Rub, Tachycardia GI/Abdominal Exam: Normal Bowel Sounds, Distended, Tender (diffuse) (Female) Exam: Deferred Rectal (Female) Exam: Deferred Back Exam: Normal Inspection, Full Range of Motion, NT Extremities: Normal Inspection, Normal Range of Motion, Non-Tender, Normal Capillary Refill, No Pedal Edema Neurological: Alert, Oriented, CN II-XII Intact, Normal Cognition, Normal Gait, Normal Reflexes, No Motor/Sensory Deficits Psychiatric: Normal Affect, Normal Mood Skin Exam: Warm, Dry, Intact, Normal Color, No Rash Lymphatic: No Adenopathy #1 Interpretation EKG Date: 03/18/21 Time: 12:19 Rhythm: Other (Sinus Tach) Rate (Beats/Min): 119 [place]: Normal P-Wave: Present QRS: Normal ST-T: Normal QT: Normal Comparison: No Change Course - Vital Signs Last Recorded V/S: Last Vital Signs Temp 97.6 F 03/18/21 11:56 Pulse 120 H 03/18/21 11:56 Resp 36 H 03/18/21 11:56 BP 112/81 03/18/21 11:56 Pulse Ox 98 03/18/21 11:56 - Orders/Labs/Meds Orders: Active Orders 24 hr Category Date Time Status CULTURE BLOOD [BC] Stat Lab 03/18/21 12:30 Received CULTURE BLOOD [BC] Stat Lab 03/18/21 13:52 Results Labs: Laboratory Tests 03/18/21 03/18/21 03/18/21 Range/Units 12:30 12:30 12:30 WBC 10.2 H (5.0-10.0) 10^3/uL RBC 4.57 (4.2-5.4) 10^6/uL Hgb 11.2 L (12.0-16.0) g/dL Hct 34.5 L (37.0-47.0) % MCV 75.5 L (80-100) fL MCH 24.5 L (27.0-34.0) pg MCHC 32.5 L (33.0-35.0) g/dL Plt Count 189 (150-450) 10^3/uL Neut % (Auto) 77.0 H (42.2-75.2) % Lymph % (Auto) 15.2 L (20.5-50.1) % [place] % (Auto) 7.0 (2-8) % Eos % (Auto) 0.5 L (1.0-3.0) % Baso % (Auto) 0.3 (0.0-1.0) % D-Dimer, Quantitative (0-400) ng/mL Sodium 135 L (136-145) mmol/L Potassium 4.4 (3.5-5.1) mmol/L Chloride 99 (98-107) mmol/L Carbon Dioxide 23 (21-32) mmol/L Anion Gap 17.4 H (7-13) mEq/L BUN 18 (7-18) mg/dL Creatinine 1.30 H (0.55-1.02) mg/dL Est Cr Clr Drug Dosing 54.72 mL/min Estimated GFR (MDRD) 50 BUN/Creatinine Ratio 13.8 (No establ ref range) Glucose 109 H (70-99) mg/dL Lactic Acid 3.7 H* (0.4-2.0) mmol/L Calcium 8.5 (8.5-10.1) mg/dL Total Bilirubin 2.7 H (0.2-1.0) mg/dL AST 102 H (15-37) U/L ALT 173 H (14-59) U/L Alkaline Phosphatase 99 (46-116) U/L Ammonia (11-32) umol/L Troponin I High Sens 24 (<=51) pg/mL Total Protein 6.1 L (6.4-8.2) g/dL Albumin 3.3 L (3.4-5.0) g/dL Globulin 2.8 Albumin/Globulin Ratio 1.18 Amylase 29 (25-115) U/L Lipase 138 (73-393) U/L Urine Color (YELLOW) Urine Appearance (CLEAR) Urine pH (5.0-9.0) Ur Specific [place] (1.005-1.030) Urine Protein (NEGATIVE) Urine Glucose (UA) (NEGATIVE) Urine Ketones (NEGATIVE) Urine Occult Blood (NEGATIVE) Urine Nitrite (NEGATIVE) Urine Bilirubin (NEGATIVE) Urine Urobilinogen (0.2-1.0) mg/dL Ur Leukocyte Esterase (NEGATIVE) Urine RBC (0-5) /HPF Urine WBC (0-5/HPF) /HPF Ur Epithelial Cells (NOT SEEN) /HPF Amorphous Sediment (NOT SEEN) /HPF Urine Bacteria (0-FEW/HPF) /HPF Urine Mucus (NOT SEEN) /LPF Urine Opiates Screen (NEGATIVE) Ur Oxycodone Screen (NEGATIVE) Urine Methadone Screen (NEGATIVE) Ur Barbiturates Screen (NEGATIVE) U Tricyclic Antidepress (NEGATIVE) Ur Phencyclidine Scrn (NEGATIVE) Ur Amphetamine Screen (NEGATIVE) U Methamphetamines Scrn (NEGATIVE) Urine MDMA Screen (NEGATIVE) U Benzodiazepines Scrn (NEGATIVE) Urine Cocaine Screen (NEGATIVE) U Marijuana (THC) Screen (NEGATIVE) SARS-CoV-2 RNA (KEIRA) (NEGATIVE) 03/18/21 03/18/21 03/18/21 Range/Units 12:30 13:28 13:28 WBC (5.0-10.0) 10^3/uL RBC (4.2-5.4) 10^6/uL Hgb (12.0-16.0) g/dL Hct (37.0-47.0) % MCV (80-100) fL MCH (27.0-34.0) pg MCHC (33.0-35.0) g/dL Plt Count (150-450) 10^3/uL Neut % (Auto) (42.2-75.2) % Lymph % (Auto) (20.5-50.1) % [place] % (Auto) (2-8) % Eos % (Auto) (1.0-3.0) % Baso % (Auto) (0.0-1.0) % D-Dimer, Quantitative > 5000 H (0-400) ng/mL Sodium (136-145) mmol/L Potassium (3.5-5.1) mmol/L Chloride (98-107) mmol/L Carbon Dioxide (21-32) mmol/L Anion Gap (7-13) mEq/L BUN (7-18) mg/dL Creatinine (0.55-1.02) mg/dL Est Cr Clr Drug Dosing mL/min Estimated GFR (MDRD) BUN/Creatinine Ratio (No establ ref range) Glucose (70-99) mg/dL Lactic Acid (0.4-2.0) mmol/L Calcium (8.5-10.1) mg/dL Total Bilirubin (0.2-1.0) mg/dL AST (15-37) U/L ALT (14-59) U/L Alkaline Phosphatase (46-116) U/L Ammonia (11-32) umol/L Troponin I High Sens (<=51) pg/mL Total Protein (6.4-8.2) g/dL Albumin (3.4-5.0) g/dL Globulin Albumin/Globulin Ratio Amylase (25-115) U/L Lipase (73-393) U/L Urine Color [place] (YELLOW) Urine Appearance Slightly cloudy (CLEAR) Urine pH 5.0 (5.0-9.0) Ur Specific [place] >= 1.030 (1.005-1.030) Urine Protein 30 H (NEGATIVE) Urine Glucose (UA) Negative (NEGATIVE) Urine Ketones Trace H (NEGATIVE) Urine Occult Blood Negative (NEGATIVE) Urine Nitrite Negative (NEGATIVE) Urine Bilirubin Small H (NEGATIVE) Urine Urobilinogen 1.0 (0.2-1.0) mg/dL Ur Leukocyte Esterase Negative (NEGATIVE) Urine RBC 0-5 (0-5) /HPF Urine WBC 0-5 (0-5/HPF) /HPF Ur Epithelial Cells Few (NOT SEEN) /HPF Amorphous Sediment Few (NOT SEEN) /HPF Urine Bacteria Few (0-FEW/HPF) /HPF Urine Mucus Many H (NOT SEEN) /LPF Urine Opiates Screen Negative (NEGATIVE) Ur Oxycodone Screen Negative (NEGATIVE) Urine Methadone Screen Negative (NEGATIVE) Ur Barbiturates Screen Negative (NEGATIVE) U Tricyclic Antidepress Negative (NEGATIVE) Ur Phencyclidine Scrn Negative (NEGATIVE) Ur Amphetamine Screen Positive H (NEGATIVE) U Methamphetamines Scrn Negative (NEGATIVE) Urine MDMA Screen Negative (NEGATIVE) U Benzodiazepines Scrn Negative (NEGATIVE) Urine Cocaine Screen Negative (NEGATIVE) U Marijuana (THC) Screen Negative (NEGATIVE) SARS-CoV-2 RNA (KEIRA) (NEGATIVE) 03/18/21 03/18/21 03/18/21 Range/Units 13:52 15:24 15:52 WBC (5.0-10.0) 10^3/uL RBC (4.2-5.4) 10^6/uL Hgb (12.0-16.0) g/dL Hct (37.0-47.0) % MCV (80-100) fL MCH (27.0-34.0) pg MCHC (33.0-35.0) g/dL Plt Count (150-450) 10^3/uL Neut % (Auto) (42.2-75.2) % Lymph % (Auto) (20.5-50.1) % [place] % (Auto) (2-8) % Eos % (Auto) (1.0-3.0) % Baso % (Auto) (0.0-1.0) % D-Dimer, Quantitative (0-400) ng/mL Sodium (136-145) mmol/L Potassium (3.5-5.1) mmol/L Chloride (98-107) mmol/L Carbon Dioxide (21-32) mmol/L Anion Gap (7-13) mEq/L BUN (7-18) mg/dL Creatinine (0.55-1.02) mg/dL Est Cr Clr Drug Dosing mL/min Estimated GFR (MDRD) BUN/Creatinine Ratio (No establ ref range) Glucose (70-99) mg/dL Lactic Acid 3.6 H* (0.4-2.0) mmol/L Calcium (8.5-10.1) mg/dL Total Bilirubin (0.2-1.0) mg/dL AST (15-37) U/L ALT (14-59) U/L Alkaline Phosphatase (46-116) U/L Ammonia 20 (11-32) umol/L Troponin I High Sens (<=51) pg/mL Total Protein (6.4-8.2) g/dL Albumin (3.4-5.0) g/dL Globulin Albumin/Globulin Ratio Amylase (25-115) U/L Lipase (73-393) U/L Urine Color (YELLOW) Urine Appearance (CLEAR) Urine pH (5.0-9.0) Ur Specific [place] (1.005-1.030) Urine Protein (NEGATIVE) Urine Glucose (UA) (NEGATIVE) Urine Ketones (NEGATIVE) Urine Occult Blood (NEGATIVE) Urine Nitrite (NEGATIVE) Urine Bilirubin (NEGATIVE) Urine Urobilinogen (0.2-1.0) mg/dL Ur Leukocyte Esterase (NEGATIVE) Urine RBC (0-5) /HPF Urine WBC (0-5/HPF) /HPF Ur Epithelial Cells (NOT SEEN) /HPF Amorphous Sediment (NOT SEEN) /HPF Urine Bacteria (0-FEW/HPF) /HPF Urine Mucus (NOT SEEN) /LPF Urine Opiates Screen (NEGATIVE) Ur Oxycodone Screen (NEGATIVE) Urine Methadone Screen (NEGATIVE) Ur Barbiturates Screen (NEGATIVE) U Tricyclic Antidepress (NEGATIVE) Ur Phencyclidine Scrn (NEGATIVE) Ur Amphetamine Screen (NEGATIVE) U Methamphetamines Scrn (NEGATIVE) Urine MDMA Screen (NEGATIVE) U Benzodiazepines Scrn (NEGATIVE) Urine Cocaine Screen (NEGATIVE) U Marijuana (THC) Screen (NEGATIVE) SARS-CoV-2 RNA (KEIRA) Negative (NEGATIVE) Meds: Medications Discontinued Medications Generic Name Dose Route Start Last Admin Trade Name Freq PRN Reason Stop Dose Admin Hydromorphone HCl 0.5 mg 03/18/21 14:28 03/18/21 14:52 Hydromorphone 0.5 Mg/0.5 Ml Syringe IVPUSH 03/18/21 14:29 0.5 mg ONETIME ONE Administration Sodium Chloride 1,000 mls @ 250 mls/hr 03/18/21 14:25 03/18/21 14:51 Normal Saline IV 03/18/21 18:24 250 mls/hr .BOLUS ONE Administration Ceftriaxone Sodium 2 gm/ 100 mls @ 200 mls/hr 03/18/21 15:48 03/18/21 16:01 Sodium Chloride IV 03/18/21 16:17 200 mls/hr ONETIME ONE Administration Metoclopramide HCl 10 mg 03/18/21 15:53 03/18/21 16:00 Metoclopramide 10 Mg/2 Ml Sdv IVPUSH 03/18/21 15:54 10 mg ONETIME ONE Administration Ondansetron HCl 4 mg 03/18/21 14:25 03/18/21 14:52 Ondansetron 4 Mg/2 Ml Sdv IVPUSH 03/18/21 14:26 4 mg ONETIME ONE Administration Departure - Departure Time of Disposition: 20:10 Disposition: DC/Tfer to [facility] 02 Clinical Impression: Abdominal pain Qualifiers: Abdominal location: upper abdomen, unspecified Qualified Code(s): R10.10 - Upper abdominal pain, unspecified Ascites Qualifiers: Ascites type: other type Qualified Code(s): R18.8 - Other ascites - Discharge Information *PRESCRIPTION DRUG MONITORING PROGRAM REVIEWED*: Not Applicable *COPY OF PRESCRIPTION DRUG MONITORING REPORT IN PATIENT SHEFALI: Not Applicable Referrals: PCP,None [Primary Care Provider] - Forms: ED Department Discharge Care Plan Goals: Discussed the patient with the hospitalist with [facility]. The patient will be accepted to [facility] when a bed is available. The patient will be transported by [facility]. - My Orders Last 24 Hours: My Active Orders 03/18/21 12:30 CULTURE BLOOD [BC] Stat 03/18/21 13:52 CULTURE BLOOD [BC] Stat - Assessment/Plan Last 24 Hours: My Active Orders 03/18/21 12:30 CULTURE BLOOD [BC] Stat 03/18/21 13:52 CULTURE BLOOD [BC] Stat
[2021-03-18 13:10] LABS: ANION GAP 17.4 mEq/L (7-13)
[2021-03-18 14:05] LABS: AMPHETAMINES,URINE POSITIVE (NEGATIVE); BARBITURATES,URINE NEGATIVE (NEGATIVE); BENZODIAZEPINE,URINE NEGATIVE (NEGATIVE); MDMA (ECSTASY), URINE NEGATIVE (NEGATIVE); METHADONE,URINE NEGATIVE (NEGATIVE); METHAMPHETAMINES,URINE NEGATIVE (NEGATIVE); OPIATES,URINE NEGATIVE (NEGATIVE); OXYCODONE,URINE NEGATIVE (NEGATIVE); PHENCYCLIDINE,URINE NEGATIVE (NEGATIVE); TCA,URINE NEGATIVE (NEGATIVE)
[2021-03-18] MEDS ORDERED: Sodium Chloride 0.9% 1,000 ML IV ONE (14:25)
[2021-03-18] MEDS ORDERED: Ondansetron 4 MG/2 ML SDV IVPUSH ONE (14:25)
[2021-03-18] MEDS ORDERED: HYDROmorphone 0.5 MG/0.5 ML Syringe IVPUSH ONE (14:28)
--- NOTE | 2021-03-18 15:09 | CT ---
EXAMINATION: Abdomen Pelvis wo Cont SEX: Female AGE: 25 years CLINICAL HISTORY: 25-year-old 145 pound female with diffuse abdominal pain (WBC 10,300). "Small volume free fluid in the pelvis" reported on otherwise unremarkable CT of abdomen 24 February 2021 patient with history of alcohol and drug (Meth) abuse. Serum D dimer greater than 5000. Scan technique: Volume acquisition of data emergency unenhanced CT scan of the abdomen and pelvis obtained with the patient lying supine on the Siemens multislice scanner [place], [place]. All data archived in the PACS system for storage, reformatting axial/sagittal/coronal planes and study. Interpretation: Abnormal. 1. Large volume intraperitoneal fluid (ASCITES) dramatically increased since recent exam 24 February 2021. 2. No new signs of pelvic or abdominal mass lesion (diverticulosis descending right and sigmoid colon). 3. No mesenteric or retroperitoneal lymphadenopathy. 4. Small noncontrasted liver without obvious mass or ductal dilatation. Stomach, spleen, pancreas, adrenal glands and kidneys anatomically correct i.e. negative. 5. Large heart. Lung bases clear. No infiltrates or mass lesion. No pericardial or pleural effusions. 6. No sign of mechanical bowel obstruction. No free intraperitoneal air. 7. Note: Diffuse edema in the subcutaneous soft tissues (anasarca) also new since comparison exam early February. CONCLUSION: Ascites and anasarca. Cardiomegaly. No sign of primary or metastatic malignancy. Liver failure?
[2021-03-18] MEDS ORDERED: cefTRIAXone 2 GM in Sodium Chloride 0.9% 100 ML IV ONE (15:48)
[2021-03-18] MEDS ORDERED: Metoclopramide 10 MG/2 ML SDV IVPUSH ONE (15:53)
== END 2021-03-18 20:10 ==
LOC: DL.ED 12:03
DX: R18.8 Other ascites (principal); Z20.822 Contact with and (suspected) exposure to COVID-19; Z79.899 Other long term (current) drug therapy
CPT/HCPCS: 36415; 74176; 80053; 80305; 81001; 82140; 82150; 83605; 83690; 84484; 85025; 85379; 87040; 87635; 93005; 96365; 96375; 99285; J0696; J1170; J2405; J2765; J7030; U0002

== ENCOUNTER 2021-03-20 20:31 | Emergency (ER) | payer MEDICAID, OTHER ==
[2021-03-20] MEDS ORDERED: Sodium Chloride 0.9% 10 ML Syringe FLUSH PRN (20:52)
--- NOTE | 2021-03-20 20:52 | EDM.PDOC ---
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 Departure - Departure Disposition: Home, Self-Care 01 Clinical Impression: Methamphetamine abuse Ascites Qualifiers: Ascites type: other type Qualified Code(s): R18.8 - Other ascites Cirrhosis of liver Qualifiers: Hepatic cirrhosis type: alcoholic cirrhosis Ascites presence: with ascites Qualified Code(s): K70.31 - Alcoholic cirrhosis of liver with ascites - Discharge Information Referrals: PCP,None [Primary Care Provider] - Forms: ED Department Discharge Care Plan Goals: The patient was advised of the examination, CT, ultrasound and lab results during the visit. The patient did receive infusions of albumin during the visit. The patient also had over 3 liters of fluid removed via paracentesis during the visit. The patient reports improvement of her symptoms. The patient was encouraged to follow-up with her primary care facility this week or early next week for continued evaluation and further treatment. If the patient has any additional symptoms or concerns, the patient should either return to the emergency department or visit her primary care facility. <Rosales Navas M - Last Filed: 03/21/21 13:52> Course - Re-Assessments/Exams Free Text/Narrative Re-Assessment/Exam: 03/21/21 13:52 The patient reports she is feeling much better after the infusions of albumin and fluid was removed. Departure - Departure Time of Disposition: 13:53 - Discharge Information *PRESCRIPTION DRUG MONITORING PROGRAM REVIEWED*: Not Applicable *COPY OF PRESCRIPTION DRUG MONITORING REPORT IN PATIENT SHEFALI: Not Applicable <Armando Fink - Last Filed: 03/21/21 19:11> ED HPI GENERAL MEDICAL PROBLEM - General Source of Information: Reports: Patient History Limitations: Reports: No Limitations - History of Present Illness INITIAL COMMENTS - FREE TEXT/NARRATIVE: Patient comes emergency department today with complaints of abdominal pain and chest pain. This patient is well-known to the emergency department she just recently got discharged from the hospital at [facility] yesterday for para centesis for her ascites from her chronic alcoholic liver failure. Since she was discharged home she has had increased abdominal pain. She has had generalized weakness malaise fatigue. No fever but positive for chills. Her son also fell on her abdomen yesterday but did not make her pain worse. She has been taking her lactulose. She has not been confused. Today she has had chest pain that feels like a tightness in her mid sternum left anterior chest. She does not complain of shortness of breath although she complains of breathing very fast and it is difficult to breathe. She has had no cough or congestion. Pain her chest feels like a tightness heaviness that is constantly there. Her abdominal pain is gotten worse over the past 24 hours. She is somewhat more full or distended than she typically was after her paracentesis yesterday. She is having quite a bit more pain in her abdomen than she has in the past. She denies any hematuria dysuria urinary frequency. No black or tarry stools. No pain in her lower extremities. 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: Musculoskeletal History: Reports: None Neurological History: Reports: None Psychiatric History: Reports: Addiction, Anxiety, Depression Endocrine/Metabolic History: Reports: None Hematologic History: Reports: Anemia Immunologic History: Reports: None Oncologic (Cancer) History: Reports: None Dermatologic History: Reports: None - Infectious Disease History Infectious Disease History: Reports: Chicken Pox, Novel Coronavirus - Past Surgical History Head Surgeries/Procedures: Reports: None Musculoskeletal Surgical History: Reports: Other (See Below) Other Musculoskeletal Surgeries/Procedures:: arm Social & Family History - Family History Family Medical History: No Pertinent Family History - Caffeine Use Caffeine Use: Reports: Coffee, Energy Drinks, Soda, Tea, Other - Sexual History Sexual History: Reports: Sexually Active - Living Situation & Occupation Living situation: Reports: with Family ED ROS GENERAL - Review of Systems Review Of Systems: Comprehensive ROS is negative, except as noted in HPI. ED EXAM, GI/ABD - Physical Exam Exam: See Below Text/Narrative:: The patient is quite tachypneic when I enter the room approximately 26 respirations a minute. She appears in no distress and no laboring. Wonder if this is some not aspect of hyperventilation as she is not tachypneic when I observe her when I am not in the room. She ambulates without tachypnea. Exam Limited By: No Limitations General Appearance: Alert, WD/WN, Mild Distress (Although no increased work of breathing other than tachypnea no laboring) Ears: Normal External Exam Nose: Normal Inspection Throat/Mouth: Normal Inspection, Normal Lips Head: Atraumatic, Normocephalic Neck: Normal Inspection, Supple, Non-Tender Respiratory/Chest: No Respiratory Distress, Lungs Clear, Normal Breath Sounds, No Accessory Muscle Use, Chest Non-Tender Cardiovascular: Normal Peripheral Pulses, Regular Rate, Rhythm GI/Abdominal Exam: Normal Bowel Sounds, Soft, Distended (Minimally distended with a positive peristaltic wave), Guarding (Guarding throughout her abdomen), Tender (She has generalized tenderness with guarding throughout her abdomen). No: Rigid, Rebound Back Exam: Normal Inspection, Full Range of Motion Extremities: Normal Inspection, No Pedal Edema Neurological: Alert, Oriented, Normal Cognition, No Motor/Sensory Deficits Psychiatric: Anxious Skin Exam: Warm, Intact, No Rash, Jaundice Course - Vital Signs Last Recorded V/S: Last Vital Signs Temp 98.8 F 03/20/21 20:36 Pulse 129 H 03/20/21 20:36 Resp 24 H 03/20/21 20:36 BP 103/76 03/20/21 20:36 Pulse Ox 97 03/21/21 03:21 - Orders/Labs/Meds Orders: Active Orders 24 hr Category Date Time Status Retroperitoneal Ltd [US] Routine Exams 03/21/21 Taken CULTURE BLOOD [BC] Stat Lab 03/20/21 21:04 Received CULTURE BLOOD [BC] Stat Lab 03/20/21 21:09 Received PROCALCITONIN [REF] Stat Lab 03/20/21 21:04 Received Blood Culture x2 Reflex Set [OM.PC] Stat Oth 03/20/21 20:52 Ordered Peripheral IV Insertion Adult [OM.PC] Stat Ot 03/20/21 20:52 Ordered Labs: Laboratory Tests 03/20/21 03/20/21 03/20/21 Range/Units 20:40 20:40 21:04 WBC 9.6 (5.0-10.0) 10^3/uL RBC 4.61 (4.2-5.4) 10^6/uL Hgb 11.3 L (12.0-16.0) g/dL Hct 34.6 L (37.0-47.0) % MCV 75.1 L (80-100) fL MCH 24.5 L (27.0-34.0) pg MCHC 32.7 L (33.0-35.0) g/dL Plt Count 170 (150-450) 10^3/uL Neut % (Auto) 76.2 H (42.2-75.2) % Lymph % (Auto) 13.3 L (20.5-50.1) % [place] % (Auto) 9.7 H (2-8) % Eos % (Auto) 0.6 L (1.0-3.0) % Baso % (Auto) 0.2 (0.0-1.0) % PT (9.0-12.0) SEC INR (0.9-1.2) APTT (22.0-34.0) SEC D-Dimer, Quantitative (0-400) ng/mL Sodium (136-145) mmol/L Potassium (3.5-5.1) mmol/L Chloride (98-107) mmol/L Carbon Dioxide (21-32) mmol/L Anion Gap (7-13) mEq/L BUN (7-18) mg/dL Creatinine (0.55-1.02) mg/dL Est Cr Clr Drug Dosing mL/min Estimated GFR (MDRD) BUN/Creatinine Ratio (No establ ref range) Glucose (70-99) mg/dL Lactic Acid (0.4-2.0) mmol/L Calcium (8.5-10.1) mg/dL Magnesium (1.8-2.4) mg/dL Total Bilirubin (0.2-1.0) mg/dL AST (15-37) U/L ALT (14-59) U/L Alkaline Phosphatase (46-116) U/L Ammonia (11-32) umol/L Troponin I High Sens (<=51) pg/mL C-Reactive Protein (0.0-0.9) mg/dL B-Natriuretic Peptide (0-100) pg/ml Total Protein (6.4-8.2) g/dL Albumin (3.4-5.0) g/dL Globulin Albumin/Globulin Ratio Lipase (73-393) U/L Urine Color Dark yellow (YELLOW) Urine Appearance Cloudy (CLEAR) Urine pH 5.5 (5.0-9.0) Ur Specific [place] >= 1.030 (1.005-1.030) Urine Protein 100 H (NEGATIVE) Urine Glucose (UA) Negative (NEGATIVE) Urine Ketones 15 H (NEGATIVE) Urine Occult Blood Negative (NEGATIVE) Urine Nitrite Negative (NEGATIVE) Urine Bilirubin Small H (NEGATIVE) Urine Urobilinogen 0.2 (0.2-1.0) mg/dL Ur Leukocyte Esterase Negative (NEGATIVE) U Hyaline Cast (Auto) Many Urine RBC 0-5 (0-5) /HPF Urine WBC 0-5 (0-5/HPF) /HPF Ur Epithelial Cells Few (NOT SEEN) /HPF Amorphous Sediment Few (NOT SEEN) /HPF Urine Bacteria Few (0-FEW/HPF) /HPF Urine Mucus Many H (NOT SEEN) /LPF Urine Opiates Screen Negative (NEGATIVE) Ur Oxycodone Screen Negative (NEGATIVE) Urine Methadone Screen Negative (NEGATIVE) Ur Barbiturates Screen Negative (NEGATIVE) U Tricyclic Antidepress Negative (NEGATIVE) Ur Phencyclidine Scrn Negative (NEGATIVE) Ur Amphetamine Screen Positive H (NEGATIVE) U Methamphetamines Scrn Positive H (NEGATIVE) Urine MDMA Screen Negative (NEGATIVE) U Benzodiazepines Scrn Negative (NEGATIVE) Urine Cocaine Screen Negative (NEGATIVE) U Marijuana (THC) Screen Positive H (NEGATIVE) Ethyl Alcohol (0) mg/dL 03/20/21 03/20/21 03/20/21 Range/Units 21:04 21:04 21:04 WBC (5.0-10.0) 10^3/uL RBC (4.2-5.4) 10^6/uL Hgb (12.0-16.0) g/dL Hct (37.0-47.0) % MCV (80-100) fL MCH (27.0-34.0) pg MCHC (33.0-35.0) g/dL Plt Count (150-450) 10^3/uL Neut % (Auto) (42.2-75.2) % Lymph % (Auto) (20.5-50.1) % [place] % (Auto) (2-8) % Eos % (Auto) (1.0-3.0) % Baso % (Auto) (0.0-1.0) % PT 15.9 H (9.0-12.0) SEC INR 1.6 H (0.9-1.2) APTT 23.2 (22.0-34.0) SEC D-Dimer, Quantitative (0-400) ng/mL Sodium 135 L (136-145) mmol/L Potassium 4.6 (3.5-5.1) mmol/L Chloride 102 (98-107) mmol/L Carbon Dioxide 18 L (21-32) mmol/L Anion Gap 19.6 H (7-13) mEq/L BUN 24 H (7-18) mg/dL Creatinine 1.40 H (0.55-1.02) mg/dL Est Cr Clr Drug Dosing 50.81 mL/min Estimated GFR (MDRD) 46 BUN/Creatinine Ratio 17.1 (No establ ref range) Glucose 115 H (70-99) mg/dL Lactic Acid 3.1 H* (0.4-2.0) mmol/L Calcium 8.1 L (8.5-10.1) mg/dL Magnesium 2.1 (1.8-2.4) mg/dL Total Bilirubin 1.9 H (0.2-1.0) mg/dL AST 92 H (15-37) U/L ALT 149 H (14-59) U/L Alkaline Phosphatase 127 H (46-116) U/L Ammonia (11-32) umol/L Troponin I High Sens 25 (<=51) pg/mL C-Reactive Protein 3.5 H (0.0-0.9) mg/dL B-Natriuretic Peptide 1500 H (0-100) pg/ml Total Protein 5.9 L (6.4-8.2) g/dL Albumin 3.1 L (3.4-5.0) g/dL Globulin 2.8 Albumin/Globulin Ratio 1.11 Lipase 183 (73-393) U/L Urine Color (YELLOW) Urine Appearance (CLEAR) Urine pH (5.0-9.0) Ur Specific [place] (1.005-1.030) Urine Protein (NEGATIVE) Urine Glucose (UA) (NEGATIVE) Urine Ketones (NEGATIVE) Urine Occult Blood (NEGATIVE) Urine Nitrite (NEGATIVE) Urine Bilirubin (NEGATIVE) Urine Urobilinogen (0.2-1.0) mg/dL Ur Leukocyte Esterase (NEGATIVE) U Hyaline Cast (Auto) Urine RBC (0-5) /HPF Urine WBC (0-5/HPF) /HPF Ur Epithelial Cells (NOT SEEN) /HPF Amorphous Sediment (NOT SEEN) /HPF Urine Bacteria (0-FEW/HPF) /HPF Urine Mucus (NOT SEEN) /LPF Urine Opiates Screen (NEGATIVE) Ur Oxycodone Screen (NEGATIVE) Urine Methadone Screen (NEGATIVE) Ur Barbiturates Screen (NEGATIVE) U Tricyclic Antidepress (NEGATIVE) Ur Phencyclidine Scrn (NEGATIVE) Ur Amphetamine Screen (NEGATIVE) U Methamphetamines Scrn (NEGATIVE) Urine MDMA Screen (NEGATIVE) U Benzodiazepines Scrn (NEGATIVE) Urine Cocaine Screen (NEGATIVE) U Marijuana (THC) Screen (NEGATIVE) Ethyl Alcohol < 3 (0) mg/dL 03/20/21 03/20/21 03/21/21 Range/Units 21:04 21:04 06:33 WBC 9.4 (5.0-10.0) 10^3/uL RBC 4.68 (4.2-5.4) 10^6/uL Hgb 11.4 L (12.0-16.0) g/dL Hct 35.8 L (37.0-47.0) % MCV 76.5 L (80-100) fL MCH 24.4 L (27.0-34.0) pg MCHC 31.8 L (33.0-35.0) g/dL Plt Count 163 (150-450) 10^3/uL Neut % (Auto) 80.7 H (42.2-75.2) % Lymph % (Auto) 12.2 L (20.5-50.1) % [place] % (Auto) 6.6 (2-8) % Eos % (Auto) 0.3 L (1.0-3.0) % Baso % (Auto) 0.2 (0.0-1.0) % PT (9.0-12.0) SEC INR (0.9-1.2) APTT (22.0-34.0) SEC D-Dimer, Quantitative > 5000 H (0-400) ng/mL Sodium (136-145) mmol/L Potassium (3.5-5.1) mmol/L Chloride (98-107) mmol/L Carbon Dioxide (21-32) mmol/L Anion Gap (7-13) mEq/L BUN (7-18) mg/dL Creatinine (0.55-1.02) mg/dL Est Cr Clr Drug Dosing mL/min Estimated GFR (MDRD) BUN/Creatinine Ratio (No establ ref range) Glucose (70-99) mg/dL Lactic Acid (0.4-2.0) mmol/L Calcium (8.5-10.1) mg/dL Magnesium (1.8-2.4) mg/dL Total Bilirubin (0.2-1.0) mg/dL AST (15-37) U/L ALT (14-59) U/L Alkaline Phosphatase (46-116) U/L Ammonia 24 (11-32) umol/L Troponin I High Sens (<=51) pg/mL C-Reactive Protein (0.0-0.9) mg/dL B-Natriuretic Peptide (0-100) pg/ml Total Protein (6.4-8.2) g/dL Albumin (3.4-5.0) g/dL Globulin Albumin/Globulin Ratio Lipase (73-393) U/L Urine Color (YELLOW) Urine Appearance (CLEAR) Urine pH (5.0-9.0) Ur Specific [place] (1.005-1.030) Urine Protein (NEGATIVE) Urine Glucose (UA) (NEGATIVE) Urine Ketones (NEGATIVE) Urine Occult Blood (NEGATIVE) Urine Nitrite (NEGATIVE) Urine Bilirubin (NEGATIVE) Urine Urobilinogen (0.2-1.0) mg/dL Ur Leukocyte Esterase (NEGATIVE) U Hyaline Cast (Auto) Urine RBC (0-5) /HPF Urine WBC (0-5/HPF) /HPF Ur Epithelial Cells (NOT SEEN) /HPF Amorphous Sediment (NOT SEEN) /HPF Urine Bacteria (0-FEW/HPF) /HPF Urine Mucus (NOT SEEN) /LPF Urine Opiates Screen (NEGATIVE) Ur Oxycodone Screen (NEGATIVE) Urine Methadone Screen (NEGATIVE) Ur Barbiturates Screen (NEGATIVE) U Tricyclic Antidepress (NEGATIVE) Ur Phencyclidine Scrn (NEGATIVE) Ur Amphetamine Screen (NEGATIVE) U Methamphetamines Scrn (NEGATIVE) Urine MDMA Screen (NEGATIVE) U Benzodiazepines Scrn (NEGATIVE) Urine Cocaine Screen (NEGATIVE) U Marijuana (THC) Screen (NEGATIVE) Ethyl Alcohol (0) mg/dL 03/21/21 Range/Units 06:33 WBC (5.0-10.0) 10^3/uL RBC (4.2-5.4) 10^6/uL Hgb (12.0-16.0) g/dL Hct (37.0-47.0) % MCV (80-100) fL MCH (27.0-34.0) pg MCHC (33.0-35.0) g/dL Plt Count (150-450) 10^3/uL Neut % (Auto) (42.2-75.2) % Lymph % (Auto) (20.5-50.1) % [place] % (Auto) (2-8) % Eos % (Auto) (1.0-3.0) % Baso % (Auto) (0.0-1.0) % PT (9.0-12.0) SEC INR (0.9-1.2) APTT (22.0-34.0) SEC D-Dimer, Quantitative (0-400) ng/mL Sodium (136-145) mmol/L Potassium (3.5-5.1) mmol/L Chloride (98-107) mmol/L Carbon Dioxide (21-32) mmol/L Anion Gap (7-13) mEq/L BUN (7-18) mg/dL Creatinine (0.55-1.02) mg/dL Est Cr Clr Drug Dosing mL/min Estimated GFR (MDRD) BUN/Creatinine Ratio (No establ ref range) Glucose (70-99) mg/dL Lactic Acid 2.9 H* (0.4-2.0) mmol/L Calcium (8.5-10.1) mg/dL Magnesium (1.8-2.4) mg/dL Total Bilirubin (0.2-1.0) mg/dL AST (15-37) U/L ALT (14-59) U/L Alkaline Phosphatase (46-116) U/L Ammonia (11-32) umol/L Troponin I High Sens (<=51) pg/mL C-Reactive Protein (0.0-0.9) mg/dL B-Natriuretic Peptide (0-100) pg/ml Total Protein (6.4-8.2) g/dL Albumin (3.4-5.0) g/dL Globulin Albumin/Globulin Ratio Lipase (73-393) U/L Urine Color (YELLOW) Urine Appearance (CLEAR) Urine pH (5.0-9.0) Ur Specific [place] (1.005-1.030) Urine Protein (NEGATIVE) Urine Glucose (UA) (NEGATIVE) Urine Ketones (NEGATIVE) Urine Occult Blood (NEGATIVE) Urine Nitrite (NEGATIVE) Urine Bilirubin (NEGATIVE) Urine Urobilinogen (0.2-1.0) mg/dL Ur Leukocyte Esterase (NEGATIVE) U Hyaline Cast (Auto) Urine RBC (0-5) /HPF Urine WBC (0-5/HPF) /HPF Ur Epithelial Cells (NOT SEEN) /HPF Amorphous Sediment (NOT SEEN) /HPF Urine Bacteria (0-FEW/HPF) /HPF Urine Mucus (NOT SEEN) /LPF Urine Opiates Screen (NEGATIVE) Ur Oxycodone Screen (NEGATIVE) Urine Methadone Screen (NEGATIVE) Ur Barbiturates Screen (NEGATIVE) U Tricyclic Antidepress (NEGATIVE) Ur Phencyclidine Scrn (NEGATIVE) Ur Amphetamine Screen (NEGATIVE) U Methamphetamines Scrn (NEGATIVE) Urine MDMA Screen (NEGATIVE) U Benzodiazepines Scrn (NEGATIVE) Urine Cocaine Screen (NEGATIVE) U Marijuana (THC) Screen (NEGATIVE) Ethyl Alcohol (0) mg/dL Meds: Medications Discontinued Medications Generic Name Dose Route Start Last Admin Trade Name Freq PRN Reason Stop Dose Admin Diphenhydramine HCl 25 mg 03/21/21 04:07 03/21/21 04:13 Diphenhydramine 50 Mg/Ml Sdv IVPUSH 03/21/21 04:08 25 mg ONETIME ONE Administration Hydromorphone HCl 1 mg 03/20/21 22:09 03/20/21 22:19 Hydromorphone 1 Mg/Ml Syringe IVPUSH 03/20/21 22:10 1 mg ONETIME ONE Administration Hydromorphone HCl 1 mg 03/21/21 09:52 03/21/21 11:10 Hydromorphone 1 Mg/Ml Syringe IVPUSH 03/21/21 09:53 1 mg ONETIME ONE Administration Ceftriaxone Sodium 2 gm/ 100 mls @ 200 mls/hr 03/20/21 20:53 03/20/21 21:10 Sodium Chloride IV 03/20/21 21:22 200 mls/hr ONETIME ONE Administration Lactated Ringer's 1,000 mls @ 1,000 mls/hr 03/20/21 21:55 03/20/21 21:55 Ringers, Lactated IV 03/20/21 22:54 Not Given .BOLUS ONE Sodium Chloride 1,000 mls @ 999 mls/hr 03/20/21 21:58 03/20/21 22:05 Normal Saline IV 03/20/21 22:58 999 mls/hr .BOLUS ONE Administration Sodium Chloride 1,000 mls @ 999 mls/hr 03/20/21 22:27 03/20/21 22:58 Normal Saline IV 03/20/21 23:27 999 mls/hr .BOLUS ONE Administration Albumin Human 25 gm/ Premix 100 mls @ 100 mls/hr 03/21/21 09:48 03/21/21 10:07 IV 03/21/21 10:47 100 mls/hr ONETIME ONE Administration Albumin Human 25 gm/ Premix 100 mls @ 100 mls/hr 03/21/21 12:36 03/21/21 12:52 IV 03/21/21 13:35 100 mls/hr ONETIME ONE Administration Iopamidol 100 ml 03/20/21 22:26 Iopamidol 755 Mg/Ml 100 Ml Bottle IVPUSH 03/20/21 22:27 ONETIME ONE Ondansetron HCl 4 mg 03/20/21 22:27 03/20/21 22:48 Ondansetron 4 Mg/2 Ml Sdv IV 03/20/21 22:28 4 mg ONETIME ONE Administration Ondansetron HCl 4 mg 03/21/21 14:08 03/21/21 14:11 Ondansetron 4 Mg Tab.Dis PO 03/21/21 14:09 4 mg ONETIME ONE Administration Sodium Chloride 10 ml 03/20/21 20:52 03/20/21 21:10 Sodium Chloride 0.9% 10 Ml Syringe FLUSH 10 ml ASDIRECTED PRN Administration Keep Vein Open - Radiology Interpretation Free Text/Narrative:: [facility] [place] [facility] Final Radiology Report Call: [phone] assistance Online chat: [email or web address] Name: JONATHAN POWELL Age: 62Years F Date: 03/20/2021 SSN: -- : 08/04/1958 Study: CR CHEST 2V Requesting Physician: ARMANDO FINK Images: 2 Addl Studies: Provided Clinical History: CP Contrast: Contrast Medium: Contrast Amount: Contrast Method: CONFIDENTIALITY STATEMENT This report is intended only for use by the referring physician, and only in accordance with law. If you received this in error, call [phone]. Page 1 of 1 PROCEDURE INFORMATION: Exam: XR Chest Exam date and time: 03/20/2021 9:12 PM Age: 62 years old Clinical indication: Other: Chest pain; Additional info: Cp TECHNIQUE: Imaging protocol: XR of the chest. Views: 2 views. COMPARISON: CR CHEST PA/LAT 09/04/2009 2:41 PM FINDINGS: Airway: Patent Lungs: COPD/emphysema is appreciated. No acute interstitial or airspace disease. Pleural spaces: Stable blunting of the left costophrenic angle since the reference examination. This is most in favor with chronic scarring/atelectasis. Right costophrenic angle is clear. There is no evidence of pneumothorax. Heart/Mediastinum: Unremarkable. No cardiomegaly. Vasculature: Calcified aortic knob. Bones/joints: No acute skeletal abnormality or aggressive osseous lesion. IMPRESSION: Negative for acute thoracic pathology. - Re-Assessments/Exams Free Text/Narrative Re-Assessment/Exam: 03/20/21 22:29 Patient's chest x-ray is unremarkable per radiology. Laboratory evaluation with a normal white blood cell count at 9.6, hemoglobin 11.3 at baseline, platelet 170. INR is 1.6, PT 15.9. D-dimer is greater than 5000. Sodium 135, CO2 18, anion gap 19.6, creatinine 1.4 with a BUN of 24 which appears to be at the patient's baseline as well. She does have a lactic acid of 3.1 although she typically has an elevated lactic acid of anywhere from 3-4. Procalcitonin is pending. CRP is mildly elevated at 3.5. BNP 1500. Her albumin is at 3.1. Her urinalysis is noninfectious appearing with a small amount of bilirubin. Her urine drug screen is positive for amphetamines and methamphetamines and THC which is chronic for her. Her alcohol is negative at 3. IV of normal saline 1 L wide open given as I am going to do a CT scan of her chest with concerns of chest pain and her elevated D-dimer. I will also rescan her abdomen with concerns of abdominal pain and just as much fullness and distention as she had previously prior to her paracentesis yesterday. After multiple attempts of antecubital IV placement by the nursing staff as well as myself with ultrasound guidance we are unable to get a IV in place that was appropriate for a CT PE scan. Called and spoke with Dr. Terrell at [place] and reviewed the case with him as well as she was just there. They had little concerns of a PE after the patient had a paracentesis and her symptoms had resolved. She had at 1300 mils raised moved from a paracentesis in [place] in her chest pain abdominal pain tachycardia tachypnea had resolved. This patient's tachycardia tachypnea chest pain shortness of breath abdominal pain could be multifactorial not only due to her ascites as well as her chronic methamphetamine use and/or pulmonary embolism. We are unable to complete a CT PE at this time as above. The patient rested over the night and was actually quite comfortable after a small dose of Dilaudid. I called and spoke with Dr. Mccoy the hospitalist cartoon designer here in [place] in the morning. The patient does feel better after the fluid administration during the night but she is still mildly tachycardic in the 113's with a respiratory rate that is improved to about 26. She is still not hypoxic. I reviewed the case with Dr. Mccoy and we will complete a paracentesis this morning and see if her symptoms resolve again and the this would rule out a PE most likely as it has in the past and our inability to complete a PE scan on this patient. Dr. Mccoy agrees and will see the patient here and complete the procedure. Care of this patient was transfered to Emily Castro PA-C at change of shift. The patient is aware of the plan and she is comfortable with this plan. - My Orders Last 24 Hours: My Active Orders 03/20/21 20:52 Blood Culture x2 Reflex Set [OM.PC] Stat Peripheral IV Insertion Adult [OM.PC] Stat 03/20/21 21:04 CULTURE BLOOD [BC] Stat PROCALCITONIN [REF] Stat 03/20/21 21:09 CULTURE BLOOD [BC] Stat 03/21/21 Retroperitoneal Ltd [US] Routine - Assessment/Plan Last 24 Hours: My Active Orders 03/20/21 20:52 Blood Culture x2 Reflex Set [OM.PC] Stat Peripheral IV Insertion Adult [OM.PC] Stat 03/20/21 21:04 CULTURE BLOOD [BC] Stat PROCALCITONIN [REF] Stat 03/20/21 21:09 CULTURE BLOOD [BC] Stat 03/21/21 Retroperitoneal Ltd [US] Routine
[2021-03-20] MEDS ORDERED: cefTRIAXone 2 GM in Sodium Chloride 0.9% 100 ML IV ONE (20:53)
[2021-03-20 20:54] VITALS: BP 103/76; PULSE 129
--- NOTE | 2021-03-20 21:02 | PCM.EKG ---
#1 Interpretation EKG Date: 03/20/21 Time: 20:58 Rhythm: NSR Rate (Beats/Min): 125 [place]: Normal P-Wave: Present QRS: Normal ST-T: Normal QT: Normal Comparison: No Change
[2021-03-20 21:33] LABS: AMPHETAMINES,URINE POSITIVE (NEGATIVE); BARBITURATES,URINE NEGATIVE (NEGATIVE); BENZODIAZEPINE,URINE NEGATIVE (NEGATIVE); MDMA (ECSTASY), URINE NEGATIVE (NEGATIVE); METHADONE,URINE NEGATIVE (NEGATIVE); METHAMPHETAMINES,URINE POSITIVE (NEGATIVE); OPIATES,URINE NEGATIVE (NEGATIVE); OXYCODONE,URINE NEGATIVE (NEGATIVE); PHENCYCLIDINE,URINE NEGATIVE (NEGATIVE); TCA,URINE NEGATIVE (NEGATIVE)
[2021-03-20 21:36] LABS: PTT,PARTIAL THROMBOPLSTIN TIME 23.2 SEC (22.0-34.0)
[2021-03-20 21:39] LABS: ANION GAP 19.6 mEq/L (7-13); CHLORIDE,CL 102 mmol/L (98-107); SODIUM,NA 135 mmol/L (136-145)
[2021-03-20] MEDS ORDERED: Lactated Ringers 1,000 ML IV ONE (21:55)
[2021-03-20] MEDS ORDERED: Sodium Chloride 0.9% 1,000 ML IV ONE ×2 (21:58→22:27)
[2021-03-20] MEDS ORDERED: HYDROmorphone 1 MG/ML Syringe IVPUSH ONE (22:09)
--- NOTE | 2021-03-20 22:10 | CR ---
PROCEDURE INFORMATION: Exam: XR Chest Exam date and time: 03/20/2021 9:27 PM Age: 25 years old Clinical indication: Pain; Shortness of breath; Left-sided; Additional info: SOB cp TECHNIQUE: Imaging protocol: XR of the chest. Views: 2 views. COMPARISON: CR Chest 2V 03/16/2021 7:09 PM FINDINGS: Airway: Patent Lungs: Unremarkable. No consolidation. Pleural spaces: Unremarkable. No pleural effusion. No pneumothorax. Heart/Mediastinum: Mild cardiomegaly, stable. Bones/joints: No acute skeletal abnormality or aggressive osseous lesion. IMPRESSION: Negative for acute thoracic pathology.
[2021-03-20] MEDS ORDERED: Iopamidol 755 Mg/ML 100 ML Bottle IVPUSH ONE (22:26)
[2021-03-20] MEDS ORDERED: Ondansetron 4 MG/2 ML SDV IV ONE (22:27)
--- NOTE | 2021-03-21 00:57 | CT ---
PROCEDURE INFORMATION: Exam: CT Abdomen And Pelvis Without Contrast Exam date and time: 03/20/2021 10:56 PM Age: 25 years old Clinical indication: Abdominal pain; Generalized; Additional info: Abd pain distention TECHNIQUE: Imaging protocol: Computed tomography of the abdomen and pelvis without contrast. Radiation optimization: All CT scans at this facility use at least one of these dose optimization techniques: automated exposure control; mA and/or kV adjustment per patient size (includes targeted exams where dose is matched to clinical indication); or iterative reconstruction. COMPARISON: 1. CT Abdomen Pelvis wo Cont 03/18/2021 2:[address] Abdomen Pelvis w Cont 02/24/2021 10:05:31 PM FINDINGS: Lungs: Mild bibasilar atelectasis. No pleural effusion. Ubil-va-ywvibivh cardiomegaly as before. Liver: Mildly nodular contour of the liver suggesting cirrhosis or significant fibrosis. Gallbladder and bile ducts: The gallbladder is normal. There is no evidence of biliary ductal dilation. Pancreas: Unremarkable non-contrast appearance of the pancreas. Spleen: The spleen is small but otherwise unremarkable. Adrenal glands: The adrenal glands are normal. Kidneys and ureters: The kidneys are normal. Stomach and bowel: The stomach is within normal limits. There is no evidence of intestinal perforation or obstruction. Greater than expected stool burden; correlate for constipation. Appendix: No evidence of appendicitis. Intraperitoneal space: Moderate ascites as before. No pneumoperitoneum. Vasculature: The aorta is normal. Lymph nodes: There is no evidence of lymphadenopathy. Urinary bladder: The urinary bladder is within normal limits. Reproductive: The uterus is unremarkable as visualized. No evidence of adnexal mass. Bones/joints: Subacute left 10th rib fracture. No evidence of acute osseous abnormality. Soft tissues: Anasarca. IMPRESSION: 1. Overall no significant change from the recent prior study. Moderate ascites as before. 2. The appearance of the liver suggest cirrhosis or significant fibrosis.
[2021-03-21] MEDS ORDERED: diphenhydrAMINE 50 MG/ML SDV IVPUSH ONE (04:07)
[2021-03-21] MEDS ORDERED: Albumin Human 25 GM in Premix Bag 1 BAG IV ONE ×2 (09:48→12:36)
[2021-03-21] MEDS ORDERED: HYDROmorphone 1 MG/ML Syringe IVPUSH ONE (09:52)
--- NOTE | 2021-03-21 10:02 | PCM.PRNOTE ---
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 This information was verified by the patient's nurse and the patient herself. Procedure: Using sterile technique the abdomen was prepped with chlorhexidine/iodine prep and draped. 4 mLs of 1% plain Lidocaine was used to raise a wheal and anesthetize the needle tract. Using an 11 scalpel, a saqib was made in the skin. Using a bunch needle the abdominal cavity was entered and ascitic fluid was withdrawn. The needle was withdrawn and a sterile pressure dressing was applied. Findings: Fluid appearance: creamy-yellowish colored ascitic fluid Volume of ascites removed: 3600 mL Diagnostic studies: No, therapeutic only Total of 50g of albumin was administered pre and post procedure There were no immediate or anticipated complications Time spent during this procedure: 50 minutes
--- NOTE | 2021-03-21 12:23 | PCM.SN.2 ---
- Free Text/Narrative Note: ED night attending provider had asked me earlier this morning if I would do bedside paracentesis on this young lady. Reviewed labs to include electrolytes and albumin level. She is afebrile and without leukocytosis. Albumin is slightly low at 3.1. Patient appears to be mild to moderately distended. Abdominal/pelvis CT scan report was read as moderate ascites. Went over risks and benefits with patient, she agrees with bedside therapeutic paracentesis. Advised day ED provider to send patient home after procedure with ciprofloxacin for SBP prophylaxis and to follow-up with her PCP after discharge. Time Documentation
--- NOTE | 2021-03-21 13:11 | US ---
EXAMINATION: Guidance Paracentesis SEX: Female AGE: 25 years CLINICAL HISTORY: 25-year-old female diagnosed with "ascites" on recent CT exam 20 March 2021. Nitrator Operator demonstrated a large collection of intraperitoneal fluid (18.6 cm x 9.1 cm x 17.5 cm) within the right lower quadrant (RLQ) abdomen for clinicians paracentesis i.E. sonographic guided procedure.
[2021-03-21] MEDS ORDERED: Ondansetron 4 MG Tab.DIS PO ONE (14:08)
--- NOTE | 2021-03-22 08:26 | US ---
EXAMINATION: Retroperitoneal Ltd SEX: Female AGE: 25 years CLINICAL HISTORY: 25-year-old female with massive ascites. (bladder volume?) Interpretation: Midline urinary bladder symmetrically distended with uniformly thick wall measures 6.95 cm L x 4.26 cm W x 5.47 cm AP diameter which calculates to a volume of 84.8 mL. Incidentally, large volume free intraperitoneal fluid in the lower pelvis between the urinary bladder and uterus, posteriorly.
== END 2021-03-21 14:50 | disposition home or self-care (01) ==
LOC: DL.ED 20:31
DX: K70.31 Alcoholic cirrhosis of liver with ascites (principal); F15.10 Other stimulant abuse, uncomplicated
CPT/HCPCS: 36415; 49083; 71046; 74176; 76775; 80053; 80305-QW; 80307; 81001; 82140; 83605; 83690; 83735; 83880; 84145; 84484; 85025; 85379; 85610; 85730; 86140; 87040; 93005; 94762; 96365; 96375; 99285-25; A9270-GY; J0696; J1170; J1200; J2405; J7030; P9047

== ENCOUNTER 2021-03-22 15:55 | Emergency (ER) | payer MEDICAID, OTHER ==
[2021-03-22 16:34] VITALS: BP 91/67; PULSE 118
[2021-03-22] MEDS ORDERED: Sodium Chloride 0.9% 10 ML Syringe FLUSH PRN (16:54)
--- NOTE | 2021-03-22 17:06 | EDM.PDOC ---
<Itz Pickens Mio - Last Filed: 03/22/21 19:00> ED HPI GENERAL MEDICAL PROBLEM - General Chief Complaint: Chest Pain Stated Complaint: AMBULANCE Time Seen by Provider: 03/22/21 17:33 Source of Information: Reports: Patient History Limitations: Reports: No Limitations - History of Present Illness INITIAL COMMENTS - FREE TEXT/NARRATIVE: 25 y/o F c/o CP left upper chest and down her sternum that has been going on for 2 weeks. Also c/o sob which is worse with exertion. Pt has been evaluated multiple times here in this ER with no definitive diagnosis. Hx of anxiety and severe liver cirrhosis. Today around noon the cp and sob became worse and pt felt like she could not catch her breath. Hx of meth use and alcoholism. Pt reports no etoh or meth for a month. Denies fever, chills, hebert, vision prob, diff voiding, extremity pain. Was seen here yesterday and had a paracentesis for her ascites where 3400 mls were drained off with no complications. Left Chest Pain Score (Numeric/FACES): 6 - Related Data Allergies Allergy/AdvReac Type Severity Reaction Status Date / Time No Known Allergies Allergy Verified 03/22/21 16:30 Home Meds: Home Meds Pantoprazole [ProTONIX] 40 mg PO DAILY 02/20/21 [History] Spironolactone 50 mg PO DAILY 02/20/21 [History] Ondansetron [Zofran ODT] 4 mg PO Q6H PRN 03/16/21 [History] Past Medical History - Past Health History Medical/Surgical History: Denies Medical/Surgical History HEENT History: Reports: None Cardiovascular History: Reports: None Respiratory History: Reports: Asthma Gastrointestinal History: Reports: Cirrhosis, Jaundice, Other (See Below) Other Gastrointestinal History: ascites Genitourinary History: Reports: None 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: Musculoskeletal History: Reports: None Neurological History: Reports: None Psychiatric History: Reports: Addiction, Anxiety, Depression Endocrine/Metabolic History: Reports: None Hematologic History: Reports: Anemia Immunologic History: Reports: None Oncologic (Cancer) History: Reports: None Dermatologic History: Reports: None - Infectious Disease History Infectious Disease History: Reports: Chicken Pox, Novel Coronavirus - Past Surgical History Head Surgeries/Procedures: Reports: None Musculoskeletal Surgical History: Reports: Other (See Below) Other Musculoskeletal Surgeries/Procedures:: arm Social & Family History - Family History Family Medical History: No Pertinent Family History - Tobacco Use Tobacco Use Status *Q: Unknown Ever Used Tobacco - Caffeine Use Caffeine Use: Reports: Coffee, Soda - Recreational Drug Use Recreational Drug Use: Yes Drug Use in Last 12 Months: Yes Recreational Drug Type: Reports: Methamphetamine - Sexual History Sexual History: Reports: Sexually Active - Living Situation & Occupation Living situation: Reports: with Family ED ROS GENERAL - Review of Systems Review Of Systems: Comprehensive ROS is negative, except as noted in HPI. ED EXAM, GENERAL - Physical Exam Exam: See Below General Appearance: Anxious, Mild Distress Nose: Normal Inspection, Normal Mucosa, No Blood Throat/Mouth: Normal Inspection, Normal Lips, Normal Teeth, Normal Gums, Normal Oropharynx, Normal Voice, No Airway Compromise Head: Atraumatic, Normocephalic Neck: Supple Respiratory/Chest: Lungs Clear, Other (tachypnea) Cardiovascular: Normal Peripheral Pulses, Tachycardia Peripheral Pulses: 2+: Carotid (L), Carotid (R), Radial (L), Radial (R), Dorsalis Pedis (L), Dorsalis Pedis (R) GI/Abdominal: Soft, Distended, Tender (over the site from [facility] paracentesis.) Rectal (Female) Exam: Deferred Back Exam: Normal Inspection, Full Range of Motion Extremities: Normal Range of Motion, No Pedal Edema Neurological: Alert Psychiatric: Anxious Skin Exam: Warm, Dry, Intact #1 Interpretation EKG Date: 03/22/21 Time: 16:59 Rhythm: Other (sinus tach) Alva: LAD-Left Alva Deviation P-Wave: Present QRS: Normal ST-T: Normal QT: Prolonged Course - Re-Assessments/Exams Free Text/Narrative Re-Assessment/Exam: 03/22/21 19:00 Care taken over by Md Villatoro at shift change Departure - Departure Disposition: Home, Self-Care 01 Clinical Impression: Ascites due to alcoholic cirrhosis Chest pain Qualifiers: Chest pain type: chest pain on breathing Qualified Code(s): R07.1 - Chest pain on breathing Instructions: Nonspecific Chest Pain, Adult, Alcoholic Liver Disease, [id number] Forms: ED Department Discharge Additional Instructions: Follow up with primary care provider in 3-5 days <Dunia Villatoro - Last Filed: 03/22/21 20:18> Course - Vital Signs Last Recorded V/S: Last Vital Signs Temp 97.4 F 03/22/21 16:30 Pulse 118 H 03/22/21 16:30 Resp 20 03/22/21 16:30 BP 91/67 03/22/21 16:30 Pulse Ox 100 03/22/21 16:30 - Orders/Labs/Meds Orders: Active Orders 24 hr Category Date Time Status Peripheral IV Care [RC] . DIRECTED Care 03/22/21 16:54 Active Sodium Chloride 0.9% [Saline Flush] Med 03/22/21 16:54 Active 10 ml FLUSH ASDIRECTED PRN Peripheral IV Insertion Adult [OM.PC] Routine Oth 03/22/21 16:53 Ordered Medication Orders Sodium Chloride (Sodium Chloride 0.9% 10 Ml Syringe) 10 ml FLUSH ASDIRECTED PRN PRN Reason: Keep Vein Open Labs: Laboratory Tests 03/22/21 03/22/21 03/22/21 Range/Units 16:17 17:15 17:15 WBC 9.9 (5.0-10.0) 10^3/uL RBC 4.94 (4.2-5.4) 10^6/uL Hgb 12.0 (12.0-16.0) g/dL Hct 37.3 (37.0-47.0) % MCV 75.5 L (80-100) fL MCH 24.3 L (27.0-34.0) pg MCHC 32.2 L (33.0-35.0) g/dL Plt Count 144 L (150-450) 10^3/uL Neut % (Auto) 77.4 H (42.2-75.2) % Lymph % (Auto) 13.4 L (20.5-50.1) % [place] % (Auto) 8.5 H (2-8) % Eos % (Auto) 0.5 L (1.0-3.0) % Baso % (Auto) 0.2 (0.0-1.0) % Add Manual Diff Yes Neutrophils % (Manual) 79 H (42-75) % Band Neutrophils % 1 % Lymphocytes % (Manual) 15 L (20-50) % Atypical Lymphs % 0 % Monocytes % (Manual) 5 (2-8) % Poikilocytosis 1+ slight Anisocytosis 1+ slight D-Dimer, Quantitative (0-400) ng/mL Sodium 134 L (136-145) mmol/L Potassium 4.7 (3.5-5.1) mmol/L Chloride 101 (98-107) mmol/L Carbon Dioxide 19 L (21-32) mmol/L Anion Gap 18.7 H (7-13) mEq/L BUN 28 H (7-18) mg/dL Creatinine 1.41 H (0.55-1.02) mg/dL Est Cr Clr Drug Dosing 50.45 mL/min Estimated GFR (MDRD) 45 BUN/Creatinine Ratio 19.9 (No establ ref range) Glucose 112 H (70-99) mg/dL Calcium 8.4 L (8.5-10.1) mg/dL Magnesium 2.2 (1.8-2.4) mg/dL Total Bilirubin 2.3 H (0.2-1.0) mg/dL AST 318 H (15-37) U/L ALT 234 H (14-59) U/L Alkaline Phosphatase 110 (46-116) U/L Creatine Kinase 166 (16-191) U/L Troponin I High Sens 19 (<=51) pg/mL Total Protein 6.2 L (6.4-8.2) g/dL Albumin 3.7 (3.4-5.0) g/dL Globulin 2.5 Albumin/Globulin Ratio 1.5 Amylase 41 (25-115) U/L Lipase 258 (73-393) U/L Urine Opiates Screen Negative (NEGATIVE) Ur Oxycodone Screen Negative (NEGATIVE) Urine Methadone Screen Negative (NEGATIVE) Ur Barbiturates Screen Negative (NEGATIVE) U Tricyclic Antidepress Negative (NEGATIVE) Ur Phencyclidine Scrn Negative (NEGATIVE) Ur Amphetamine Screen Positive H (NEGATIVE) U Methamphetamines Scrn Negative (NEGATIVE) Urine MDMA Screen Negative (NEGATIVE) U Benzodiazepines Scrn Negative (NEGATIVE) Urine Cocaine Screen Negative (NEGATIVE) U Marijuana (THC) Screen Negative (NEGATIVE) 03/22/21 Range/Units 17:15 WBC (5.0-10.0) 10^3/uL RBC (4.2-5.4) 10^6/uL Hgb (12.0-16.0) g/dL Hct (37.0-47.0) % MCV (80-100) fL MCH (27.0-34.0) pg MCHC (33.0-35.0) g/dL Plt Count (150-450) 10^3/uL Neut % (Auto) (42.2-75.2) % Lymph % (Auto) (20.5-50.1) % [place] % (Auto) (2-8) % Eos % (Auto) (1.0-3.0) % Baso % (Auto) (0.0-1.0) % Add Manual Diff Neutrophils % (Manual) (42-75) % Band Neutrophils % % Lymphocytes % (Manual) (20-50) % Atypical Lymphs % % Monocytes % (Manual) (2-8) % Poikilocytosis Anisocytosis D-Dimer, Quantitative > 5000 H (0-400) ng/mL Sodium (136-145) mmol/L Potassium (3.5-5.1) mmol/L Chloride (98-107) mmol/L Carbon Dioxide (21-32) mmol/L Anion Gap (7-13) mEq/L BUN (7-18) mg/dL Creatinine (0.55-1.02) mg/dL Est Cr Clr Drug Dosing mL/min Estimated GFR (MDRD) BUN/Creatinine Ratio (No establ ref range) Glucose (70-99) mg/dL Calcium (8.5-10.1) mg/dL Magnesium (1.8-2.4) mg/dL Total Bilirubin (0.2-1.0) mg/dL AST (15-37) U/L ALT (14-59) U/L Alkaline Phosphatase (46-116) U/L Creatine Kinase (16-191) U/L Troponin I High Sens (<=51) pg/mL Total Protein (6.4-8.2) g/dL Albumin (3.4-5.0) g/dL Globulin Albumin/Globulin Ratio Amylase (25-115) U/L Lipase (73-393) U/L Urine Opiates Screen (NEGATIVE) Ur Oxycodone Screen (NEGATIVE) Urine Methadone Screen (NEGATIVE) Ur Barbiturates Screen (NEGATIVE) U Tricyclic Antidepress (NEGATIVE) Ur Phencyclidine Scrn (NEGATIVE) Ur Amphetamine Screen (NEGATIVE) U Methamphetamines Scrn (NEGATIVE) Urine MDMA Screen (NEGATIVE) U Benzodiazepines Scrn (NEGATIVE) Urine Cocaine Screen (NEGATIVE) U Marijuana (THC) Screen (NEGATIVE) Meds: Medications Generic Name Dose Route Start Last Admin Trade Name Freq PRN Reason Stop Dose Admin Sodium Chloride 10 ml 03/22/21 16:54 Sodium Chloride 0.9% 10 Ml Syringe FLUSH ASDIRECTED PRN Keep Vein Open Discontinued Medications Generic Name Dose Route Start Last Admin Trade Name Freq PRN Reason Stop Dose Admin Iopamidol 100 ml 03/22/21 18:27 03/22/21 19:29 Iopamidol 755 Mg/Ml 100 Ml Bottle IVPUSH 03/22/21 18:28 100 ml ONETIME ONE Administration - Radiology Interpretation Free Text/Narrative:: CT Chest with contrast: Impression: 1. Cardiomegaly 2. No definite evidence of acute PE - Re-Assessments/Exams Free Text/Narrative Re-Assessment/Exam: Pt resting in the room. Reviewed CT results with the pt. She is asking when she can be discharged. Pt discharged home in stable condition. 03/22/21 20:15 Departure - Departure Time of Disposition: 20:16 Condition: Fair Sepsis Event Note (ED) - Focused Exam Vital Signs: Vital Signs Temp Pulse Resp BP Pulse Ox 03/22/21 16:30 97.4 F 118 H 20 91/67 100
[2021-03-22 17:46] LABS: ANION GAP 18.7 mEq/L (7-13)
[2021-03-22 18:05] LABS: AMPHETAMINES,URINE POSITIVE (NEGATIVE); BARBITURATES,URINE NEGATIVE (NEGATIVE); BENZODIAZEPINE,URINE NEGATIVE (NEGATIVE); MDMA (ECSTASY), URINE NEGATIVE (NEGATIVE); METHADONE,URINE NEGATIVE (NEGATIVE); METHAMPHETAMINES,URINE NEGATIVE (NEGATIVE); OPIATES,URINE NEGATIVE (NEGATIVE); OXYCODONE,URINE NEGATIVE (NEGATIVE); PHENCYCLIDINE,URINE NEGATIVE (NEGATIVE); TCA,URINE NEGATIVE (NEGATIVE)
[2021-03-22] MEDS ORDERED: Iopamidol 755 Mg/ML 100 ML Bottle IVPUSH ONE (18:27)
--- NOTE | 2021-03-22 19:39 | CT ---
PROCEDURE INFORMATION: Exam: CT Chest With Contrast; Diagnostic Exam date and time: 03/22/2021 6:52 PM Age: 25 years old Clinical indication: Shortness of breath; Patient HX: Iv drug user--had paracentesis yesterday; Additional info: Cp, SOB, elevated ddimer 5000 TECHNIQUE: Imaging protocol: Diagnostic computed tomography of the chest with contrast. Radiation optimization: All CT scans at this facility use at least one of these dose optimization techniques: automated exposure control; mA and/or kV adjustment per patient size (includes targeted exams where dose is matched to clinical indication); or iterative reconstruction. Contrast material: [id number]; Contrast volume: 61 ml; Contrast route: INTRAVENOUS (IV); COMPARISON: CT Chest Abdomen Pelvis w Cont 02/20/2021 9:17 PM FINDINGS: Lungs: Unremarkable. No consolidation. No masses. Pleural spaces: Unremarkable. No pneumothorax. No pleural effusion. Heart: Heart appears moderately enlarged.. No pericardial effusion. Aorta: Unremarkable. No aortic aneurysm. Lymph nodes: Unremarkable. No enlarged lymph nodes. Bones/joints: Unremarkable. No acute fracture. Soft tissues: Unremarkable. IMPRESSION: 1. Cardiomegaly. 2. No definite evidence of acute PE.
== END 2021-03-22 20:33 | disposition home or self-care (01) ==
LOC: DL.ED 15:55
DX: R07.1 Chest pain on breathing (principal); K70.31 Alcoholic cirrhosis of liver with ascites; Z79.899 Other long term (current) drug therapy
CPT/HCPCS: 36415; 71260; 80053; 80305-QW; 82150; 82550; 83690; 83735; 84484; 85025; 85379; 93005; 99285-25; Q9967

== ENCOUNTER 2021-03-23 04:06 | Emergency (ER) | payer MEDICAID, OTHER ==
[2021-03-23 04:23] VITALS: BP 107/65; PULSE 124
--- NOTE | 2021-03-23 04:26 | EDM.PDOC ---
ED HPI GENERAL MEDICAL PROBLEM - General Chief Complaint: Abdominal Pain Stated Complaint: AMBULANCE Time Seen by Provider: 03/23/21 04:19 - History of Present Illness INITIAL COMMENTS - FREE TEXT/NARRATIVE: Pt is here for acute on chronic abdominal pain. She was just seen and released from the ER a few hours ago. She was at home and slipped on her blanket and ended up kneeing her abdomen with her right knee. She sat around the home for a little while to see if it would get better, but it didn't, so she called the ambulance to bring her to the ER. The pain is in her lower abdomen where her knee hit and is radiating around to her right side and flank. No other new concerns. - Related Data Allergies Allergy/AdvReac Type Severity Reaction Status Date / Time No Known Allergies Allergy Verified 03/22/21 16:30 Home Meds: Home Meds Pantoprazole [ProTONIX] 40 mg PO DAILY 02/20/21 [History] Spironolactone 50 mg PO DAILY 02/20/21 [History] Ondansetron [Zofran ODT] 4 mg PO Q6H PRN 03/16/21 [History] Past Medical History - Past Health History Medical/Surgical History: Denies Medical/Surgical History HEENT History: Reports: None Cardiovascular History: Reports: None Respiratory History: Reports: Asthma Gastrointestinal History: Reports: Cirrhosis, Jaundice, Other (See Below) Other Gastrointestinal History: ascites Genitourinary History: Reports: None 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: Musculoskeletal History: Reports: None Neurological History: Reports: None Psychiatric History: Reports: Addiction, Anxiety, Depression Endocrine/Metabolic History: Reports: None Hematologic History: Reports: Anemia Immunologic History: Reports: None Oncologic (Cancer) History: Reports: None Dermatologic History: Reports: None - Infectious Disease History Infectious Disease History: Reports: Chicken Pox, Novel Coronavirus - Past Surgical History Head Surgeries/Procedures: Reports: None Musculoskeletal Surgical History: Reports: Other (See Below) Other Musculoskeletal Surgeries/Procedures:: arm Social & Family History - Family History Family Medical History: No Pertinent Family History - Caffeine Use Caffeine Use: Reports: None - Sexual History Sexual History: Reports: Sexually Active - Living Situation & Occupation Living situation: Reports: with Family ED ROS GENERAL - Review of Systems Review Of Systems: See Below Constitutional: Denies: Fever, Chills HEENT: Denies: Ear Discharge, Rhinitis, Sinus Problem, Throat Swelling Respiratory: Reports: Shortness of Breath, Cough. Denies: Wheezing GI/Abdominal: Reports: Distension. Denies: Constipation, Diarrhea Skin: Reports: No Symptoms Neurological: Reports: No Symptoms Psychiatric: Reports: No Symptoms Hematologic/Lymphatic: Reports: Easy Bleeding, Easy Bruising ED EXAM, GI/ABD - Physical Exam Exam: See Below Exam Limited By: No Limitations General Appearance: Alert, WD/WN, No Apparent Distress Eyes: Bilateral: Normal Appearance Ears: Normal External Exam, Hearing Grossly Normal Throat/Mouth: Normal Voice, No Airway Compromise Head: Atraumatic, Normocephalic Neck: Supple, Non-Tender Respiratory/Chest: No Respiratory Distress, Lungs Clear, Normal Breath Sounds, No Accessory Muscle Use, Chest Non-Tender Cardiovascular: Normal Peripheral Pulses, Regular Rate, Rhythm, No Murmur GI/Abdominal Exam: Normal Bowel Sounds, Soft, Distended, Tender (lower abdomen R>L). No: Guarding, Rigid, Rebound (Female) Exam: Deferred Rectal (Female) Exam: Deferred Extremities: Normal Inspection, Normal Capillary Refill Neurological: Alert, Oriented, Normal Cognition, No Motor/Sensory Deficits Psychiatric: Normal Affect, Normal Mood Skin Exam: Warm, Dry, Intact, Normal Color, No Rash Course - Re-Assessments/Exams Free Text/Narrative Re-Assessment/Exam: Explained to pt that her exam was benign and there was no indication to repeat blood or CT done earlier today. Discussed that she will be a little more sore from the injury and she can treat this at home with OTC meds and rest. Reviewed reasons to call/return to the ER. Pt verbalized understanding. 03/23/21 04:28 Departure - Departure Time of Disposition: 04:31 Disposition: Home, Self-Care 01 Condition: Fair Clinical Impression: Fall Qualifiers: Encounter type: initial encounter Qualified Code(s): W19.XXXA - Unspecified fall, initial encounter - Discharge Information *PRESCRIPTION DRUG MONITORING PROGRAM REVIEWED*: Not Applicable *COPY OF PRESCRIPTION DRUG MONITORING REPORT IN PATIENT SHEFALI: Not Applicable Instructions: Abdominal Pain, Adult, [id number] Additional Instructions: Follow up with your primary care provider in 3-5 days
== END 2021-03-23 04:38 | disposition home or self-care (01) ==
LOC: DL.ED 04:06
DX: R10.9 Unspecified abdominal pain (principal); Z79.899 Other long term (current) drug therapy; W01.0XXA Fall on same level from slipping, tripping and stumbling without subsequent striking against object, initial encounter
CPT/HCPCS: 99284

== ENCOUNTER 2021-03-24 03:44 | Emergency (ER) | payer MEDICAID, OTHER ==
[2021-03-24 04:00] VITALS: BP 106/82; PULSE 128
--- NOTE | 2021-03-24 04:36 | EDM.PDOC ---
ED HPI GENERAL MEDICAL PROBLEM - General Chief Complaint: Abdominal Pain Stated Complaint: LIVER, ASCITES PER PT Time Seen by Provider: 03/24/21 04:20 Source of Information: Reports: Patient History Limitations: Reports: No Limitations - History of Present Illness INITIAL COMMENTS - FREE TEXT/NARRATIVE: Pt is here for her chronic abdominal pain and new right sided pain from her fall last night. She denies any new symptoms. She had a CT and full lab panel yesterday. She just wants something for pain or to be transferred to [facility]. Abdomen Pain Score (Numeric/FACES): 6 - Related Data Allergies Allergy/AdvReac Type Severity Reaction Status Date / Time No Known Allergies Allergy Verified 03/22/21 16:30 Home Meds: Home Meds Pantoprazole [ProTONIX] 40 mg PO DAILY 02/20/21 [History] Spironolactone 50 mg PO DAILY 02/20/21 [History] Ondansetron [Zofran ODT] 4 mg PO Q6H PRN 03/16/21 [History] Past Medical History - Past Health History Medical/Surgical History: Denies Medical/Surgical History HEENT History: Reports: None Cardiovascular History: Reports: None Respiratory History: Reports: Asthma Gastrointestinal History: Reports: Cirrhosis, Jaundice, Other (See Below) Other Gastrointestinal History: ascites Genitourinary History: Reports: None 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: Reports: Musculoskeletal History: Reports: None Neurological History: Reports: None Psychiatric History: Reports: Addiction, Anxiety, Depression Endocrine/Metabolic History: Reports: None Hematologic History: Reports: Anemia Immunologic History: Reports: None Oncologic (Cancer) History: Reports: None Dermatologic History: Reports: None - Infectious Disease History Infectious Disease History: Reports: Chicken Pox, Novel Coronavirus - Past Surgical History Head Surgeries/Procedures: Reports: None Musculoskeletal Surgical History: Reports: Other (See Below) Other Musculoskeletal Surgeries/Procedures:: arm Social & Family History - Family History Family Medical History: No Pertinent Family History - Tobacco Use Tobacco Use Status *Q: Never Tobacco User Second Hand Smoke Exposure: No - Caffeine Use Caffeine Use: Reports: None - Recreational Drug Use Recreational Drug Use: No - Sexual History Sexual History: Reports: Sexually Active - Living Situation & Occupation Living situation: Reports: with Family ED ROS GENERAL - Review of Systems Review Of Systems: Comprehensive ROS is negative, except as noted in HPI. ED EXAM, GI/ABD - Physical Exam Exam: See Below Exam Limited By: No Limitations General Appearance: Alert, WD/WN, No Apparent Distress Ears: Normal External Exam Throat/Mouth: Normal Voice, No Airway Compromise Head: Atraumatic, Normocephalic Neck: Supple, Non-Tender Respiratory/Chest: Lungs Clear, Normal Breath Sounds, No Accessory Muscle Use Cardiovascular: Regular Rate, Rhythm, No Murmur GI/Abdominal Exam: Normal Bowel Sounds, Soft, Distended, Tender (mildly to palpation, but not during pressure with auscultation). No: Rigid, Rebound (Female) Exam: Deferred Rectal (Female) Exam: Deferred Back Exam: Normal Inspection, Full Range of Motion Extremities: Normal Inspection, Normal Range of Motion, Normal Capillary Refill Neurological: Alert, Oriented, No Motor/Sensory Deficits Psychiatric: Normal Affect, Normal Mood Skin Exam: Warm, Dry, Intact Course - Vital Signs Last Recorded V/S: Last Vital Signs Temp 98 F 03/24/21 03:56 Pulse 128 H 03/24/21 03:56 Resp 22 H 03/24/21 03:56 BP 106/82 03/24/21 03:56 Pulse Ox 99 03/24/21 03:56 - Re-Assessments/Exams Free Text/Narrative Re-Assessment/Exam: Explained to pt that she just had another CT and labs yesterday that did not show any change from previous. Her abdomen is not rigid or warm to palpation. Explained that she will be sore from her fall for a few days and she may use OTC meds and ice therapy for the pain. Advised she will not get narcotics for her chronic pain in the ER. Pt asked again for transport to [facility]. Explained to pt that there was no indication to transfer her, but she could travel there on her own after discharge if she would like. Pt verbalized understanding. 03/24/21 04:34 Departure - Departure Time of Disposition: 04:33 Disposition: Home, Self-Care 01 Condition: Fair Clinical Impression: Intraabdominal fluid collection, Ascites due to alcoholic cirrhosis Fall Qualifiers: Encounter type: subsequent encounter Qualified Code(s): W19.XXXD - Unspecified fall, subsequent encounter - Discharge Information *PRESCRIPTION DRUG MONITORING PROGRAM REVIEWED*: Not Applicable *COPY OF PRESCRIPTION DRUG MONITORING REPORT IN PATIENT SHEFALI: Not Applicable Instructions: Abdominal Pain, Adult, [id number] Additional Instructions: Follow up with your primary care provider in 2-3 days Sepsis Event Note (ED) - Evaluation Sepsis Screening Result: No Definite Risk - Focused Exam Vital Signs: Vital Signs Temp Pulse Resp BP Pulse Ox 03/24/21 03:56 98 F 128 H 22 H 106/82 99
== END 2021-03-24 04:42 | disposition home or self-care (01) ==
LOC: DL.ED 03:44
DX: K70.31 Alcoholic cirrhosis of liver with ascites (principal); Z86.16 Personal history of COVID-19; W19.XXXA Unspecified fall, initial encounter
CPT/HCPCS: 99283

== ENCOUNTER 2021-03-25 12:39 | Emergency (ER) | payer MEDICAID ==
[2021-03-25 12:39] VITALS: BP 105/72; PULSE 120
--- NOTE | 2021-03-25 13:36 | EDM.PDOC ---
ED HPI GENERAL MEDICAL PROBLEM - General Chief Complaint: Abdominal Pain Stated Complaint: AMBULANCE Time Seen by Provider: 03/25/21 12:55 Source of Information: Reports: Patient, Old Records, RN, RN Notes Reviewed History Limitations: Reports: No Limitations - History of Present Illness INITIAL COMMENTS - FREE TEXT/NARRATIVE: Saloni is a 25 y/o female with a history of cirrhosis who presents to the ED via [facility]. Upon writers entrance into her room she stated she no longer required an emergency room visit and her symptoms of abdominal pain and chest pain have subsided. The patient was examined by her PCP this morning and was given prescriptions to fill; she states she is going to fill her prescriptions and go home. This bond underwriter asked if she was refusing a medical examination, to which the patient replied, "yes." No further HPI obtained. Chest Pain Score (Numeric/FACES): 7 - Related Data Allergies Allergy/AdvReac Type Severity Reaction Status Date / Time No Known Allergies Allergy Verified 03/25/21 12:38 Home Meds: Home Meds Pantoprazole [ProTONIX] 40 mg PO DAILY 02/20/21 [History] Spironolactone 50 mg PO DAILY 02/20/21 [History] Ondansetron [Zofran ODT] 4 mg PO Q6H PRN 03/16/21 [History] Past Medical History - Past Health History Medical/Surgical History: Denies Medical/Surgical History HEENT History: Reports: None Cardiovascular History: Reports: None Respiratory History: Reports: Asthma Gastrointestinal History: Reports: Cirrhosis, Jaundice, Other (See Below) Other Gastrointestinal History: ascites Genitourinary History: Reports: None 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: Musculoskeletal History: Reports: None Neurological History: Reports: None Psychiatric History: Reports: Addiction, Anxiety, Depression Endocrine/Metabolic History: Reports: None Hematologic History: Reports: Anemia Immunologic History: Reports: None Oncologic (Cancer) History: Reports: None Dermatologic History: Reports: None - Infectious Disease History Infectious Disease History: Reports: Chicken Pox, Novel Coronavirus - Past Surgical History Head Surgeries/Procedures: Reports: None Musculoskeletal Surgical History: Reports: Other (See Below) Other Musculoskeletal Surgeries/Procedures:: arm Social & Family History - Family History Family Medical History: No Pertinent Family History - Tobacco Use Tobacco Use Status *Q: Never Tobacco User Second Hand Smoke Exposure: No - Caffeine Use Caffeine Use: Reports: None - Recreational Drug Use Recreational Drug Use: Yes Recreational Drug Type: Reports: Methamphetamine - Sexual History Sexual History: Reports: Sexually Active - Living Situation & Occupation Living situation: Reports: with Family ED ROS GENERAL - Review of Systems Review Of Systems: See Below Reason Not Obtained: Patient refused medical screening ED EXAM, GI/ABD - Physical Exam Exam: Not Obtained Reason Not Obtained: Patient refused medical screening Course - Vital Signs Last Recorded V/S: Last Vital Signs Temp 96.9 F 03/25/21 12:32 Pulse 120 H 03/25/21 12:32 Resp 20 03/25/21 12:32 BP 105/72 03/25/21 12:32 Pulse Ox 99 03/25/21 12:32 - Re-Assessments/Exams Free Text/Narrative Re-Assessment/Exam: 03/25/21 Patient signed refusal of medical examination form. Departure - Departure Time of Disposition: 13:00 Disposition: Left Without Being Seen 07 Clinical Impression: Patient left without being seen - Discharge Information Sepsis Event Note (ED) - Evaluation Sepsis Screening Result: No Definite Risk - Focused Exam Vital Signs: Vital Signs Temp Pulse Resp BP Pulse Ox 03/25/21 12:32 96.9 F 120 H 20 105/72 99
== END 2021-03-25 13:00 | disposition left against medical advice (07) ==
LOC: DL.ED 12:39
DX: R10.9 Unspecified abdominal pain (principal); Z53.8 Procedure and treatment not carried out for other reasons; Z79.899 Other long term (current) drug therapy
CPT/HCPCS: 99284

== ENCOUNTER 2021-03-26 06:31 | Emergency (ER) | payer MEDICAID ==
[2021-03-26] MEDS ORDERED: HYDROmorphone 0.5 MG/0.5 ML Syringe IVPUSH ONE (06:56)
--- NOTE | 2021-03-26 06:57 | EDM.PDOC ---
<Chanel Disla - Last Filed: 03/26/21 11:00> ED HPI GENERAL MEDICAL PROBLEM - General Chief Complaint: Abdominal Pain Stated Complaint: AMBULANCE Time Seen by Provider: 03/26/21 06:53 - Related Data Allergies Allergy/AdvReac Type Severity Reaction Status Date / Time No Known Allergies Allergy Verified 03/25/21 12:38 Home Meds: Home Meds Pantoprazole [ProTONIX] 40 mg PO DAILY 02/20/21 [History] Spironolactone 50 mg PO DAILY 02/20/21 [History] Ondansetron [Zofran ODT] 4 mg PO Q6H PRN 03/16/21 [History] Course - Radiology Interpretation Free Text/Narrative:: [facility] Final Radiology Report Call: [phone] assistance Online chat: [email or web address] Name: HOA OCTOBER Age: 25Years F Date: 03/26/2021 SSN: -- : [id number] Study: CR CHEST 1V FRONTAL Requesting Physician: JESSICA HYDE Images: 1 Addl Studies: Provided Clinical History: SOB Contrast: Contrast Medium: Contrast Amount: Contrast Method: CONFIDENTIALITY STATEMENT This report is intended only for use by the referring physician, and only in accordance with law. If you received this in error, call [phone]. Page 1 of 1 PROCEDURE INFORMATION: Exam: XR Chest Exam date and time: 03/26/2021 7:24 AM Age: 25 years old Clinical indication: Shortness of breath; Additional info: SOB TECHNIQUE: Imaging protocol: XR of the chest. Views: 1 view. COMPARISON: CT Chest w Cont, Chest w Cont 03/22/2021 6:52 PM FINDINGS: Lungs: There is left lower lobe airspace disease, with subtle air bronchogram formation, which could be due to pneumonia. Pleural spaces: No pleural effusion or pneumothorax. Heart/Mediastinum: The cardiac silhouette is borderline enlarged.The mediastinal contours are normal. Bones/joints: No acute osseous abnormality. IMPRESSION: Possible left lower lobe pneumonia. Thank you for allowing us to participate in the care of your patient. Dictated and Authenticated by: Ken Metz MD 03/26/2021 8:22 AM Central Time ([place] & [place]) - Re-Assessments/Exams Free Text/Narrative Re-Assessment/Exam: 03/26/21 Findings of examination, lab work, and imaging reviewed with patient. K 5.7, Kayexalate administered. Rocephin 1gm IM administered for CAP. Will treat CAP OP with amoxicillin and azithromycin. Patient counseled on the importance of obtaining her prescriptions and caring for herself, especially [facility] Discussed supportive cares for pneumonia. Patient instructed to follow up with her PCP in 1-2 days for lab redraw and overall check-up. Red flag signs and symptoms which would warrant reevaluation discussed. Patient verbalized understanding and agreement with the plan of care. Departure - Departure Time of Disposition: 09:50 Disposition: Home, Self-Care 01 Condition: Fair Clinical Impression: History of cirrhosis of liver, History of ascites, Hyperkalemia Community acquired pneumonia Qualifiers: Laterality: left Lung location: lower lobe of lung Qualified Code(s): J18.9 - Pneumonia, unspecified organism - Discharge Information *PRESCRIPTION DRUG MONITORING PROGRAM REVIEWED*: Not Applicable *COPY OF PRESCRIPTION DRUG MONITORING REPORT IN PATIENT SHEFALI: Not Applicable Instructions: Hyperkalemia, Community-Acquired Pneumonia, Adult Referrals: PCP,None [Primary Care Provider] - Forms: ED Department Discharge Additional Instructions: Rx: amoxicillin Rx: azithromycin 1.) Start your antibiotics today and take them until they are gone, even as your symptoms improve. 2.) Follow up with your primary care provider in 1-2 days for a lab recheck of your potassium. 3.) Drink plenty of water to stay hydrated. 4.) Eat small, frequent meals to avoid nausea. 5.) You may take acetaminophen (Tylenol) 650mg every six hours, as needed for pain. 6.) Follow up with primary care provider, or return to the emergency department, with any persistent or worsening symptoms. <Jessica Hyde - Last Filed: 03/27/21 03:58> ED HPI GENERAL MEDICAL PROBLEM - General Source of Information: Reports: Patient, EMS History Limitations: Reports: No Limitations - History of Present Illness INITIAL COMMENTS - FREE TEXT/NARRATIVE: ED via [facility] with c/o recurrent abdominal pain, SOB. No fever, no vomiting. Last abdominal tap on . Reports felt better hafter, In clinic yesterday had leaking at drain site, Stated clinic glued it shut then started to fill back up. 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: Reports: Musculoskeletal History: Reports: None Neurological History: Reports: None Psychiatric History: Reports: Addiction, Anxiety, Depression Endocrine/Metabolic History: Reports: None Hematologic History: Reports: Anemia Immunologic History: Reports: None Oncologic (Cancer) History: Reports: None Dermatologic History: Reports: None - Infectious Disease History Infectious Disease History: Reports: Chicken Pox, Novel Coronavirus - Past Surgical History Head Surgeries/Procedures: Reports: None Musculoskeletal Surgical History: Reports: Other (See Below) Other Musculoskeletal Surgeries/Procedures:: arm Social & Family History - Family History Family Medical History: No Pertinent Family History - Caffeine Use Caffeine Use: Reports: None - Sexual History Sexual History: Reports: Sexually Active - Living Situation & Occupation Living situation: Reports: with Family ED ROS GENERAL - Review of Systems Review Of Systems: Comprehensive ROS is negative, except as noted in HPI. ED EXAM, GI/ABD - Physical Exam Exam: Not Obtained Exam Limited By: No Limitations General Appearance: Alert, Anxious, Moderate Distress Eyes: Bilateral: EOMI Ears: Normal External Exam Nose: Normal Inspection Throat/Mouth: Normal Inspection Head: Atraumatic, Normocephalic Neck: Normal Inspection Respiratory/Chest: No Respiratory Distress, Normal Breath Sounds Cardiovascular: Normal Peripheral Pulses, Regular Rate, Rhythm GI/Abdominal Exam: Normal Bowel Sounds, Distended, Tender Extremities: Normal Inspection, No Pedal Edema Neurological: Alert, Oriented, Normal Cognition Skin Exam: Warm, Dry, Jaundice Course - Vital Signs Last Recorded V/S: Last Vital Signs Temp 98.1 F 03/26/21 06:38 Pulse 126 H 03/26/21 06:38 Resp 32 H 03/26/21 06:38 BP 148/119 H 03/26/21 06:38 Pulse Ox 98 03/26/21 06:38 - Orders/Labs/Meds Labs: Laboratory Tests 03/26/21 03/26/21 03/26/21 Range/Units 07:23 07:23 07:23 WBC 12.8 H (5.0-10.0) 10^3/uL RBC 4.56 (4.2-5.4) 10^6/uL Hgb 11.1 L (12.0-16.0) g/dL Hct 35.1 L (37.0-47.0) % MCV 77.0 L (80-100) fL MCH 24.3 L (27.0-34.0) pg MCHC 31.6 L (33.0-35.0) g/dL Plt Count 116 L (150-450) 10^3/uL Neut % (Auto) 80.2 H (42.2-75.2) % Lymph % (Auto) 13.2 L (20.5-50.1) % [place] % (Auto) 5.3 (2-8) % Eos % (Auto) 1.1 (1.0-3.0) % Baso % (Auto) 0.2 (0.0-1.0) % PT 11.5 (9.0-12.0) SEC INR 1.1 (0.9-1.2) Sodium 132 L (136-145) mmol/L Potassium 5.7 H (3.5-5.1) mmol/L Chloride 101 (98-107) mmol/L Carbon Dioxide 20 L (21-32) mmol/L Anion Gap 16.7 H (7-13) mEq/L BUN 17 (7-18) mg/dL Creatinine 1.01 (0.55-1.02) mg/dL Est Cr Clr Drug Dosing 70.44 mL/min Estimated GFR (MDRD) > 60 BUN/Creatinine Ratio 16.8 (No establ ref range) Glucose 94 (70-99) mg/dL Lactic Acid (0.4-2.0) mmol/L Calcium 8.0 L (8.5-10.1) mg/dL Total Bilirubin 2.0 H (0.2-1.0) mg/dL AST 99 H (15-37) U/L ALT 126 H (14-59) U/L Alkaline Phosphatase 99 (46-116) U/L Total Protein 6.2 L (6.4-8.2) g/dL Albumin 3.1 L (3.4-5.0) g/dL Globulin 3.1 Albumin/Globulin Ratio 1.00 Amylase 60 (25-115) U/L // Range/Units 07:23 WBC (5.0-10.0) 10^3/uL RBC (4.2-5.4) 10^6/uL Hgb (12.0-16.0) g/dL Hct (37.0-47.0) % MCV (80-100) fL MCH (27.0-34.0) pg MCHC (33.0-35.0) g/dL Plt Count (150-450) 10^3/uL Neut % (Auto) (42.2-75.2) % Lymph % (Auto) (20.5-50.1) % [place] % (Auto) (2-8) % Eos % (Auto) (1.0-3.0) % Baso % (Auto) (0.0-1.0) % PT (9.0-12.0) SEC INR (0.9-1.2) Sodium (136-145) mmol/L Potassium (3.5-5.1) mmol/L Chloride (98-107) mmol/L Carbon Dioxide (21-32) mmol/L Anion Gap (7-13) mEq/L BUN (7-18) mg/dL Creatinine (0.55-1.02) mg/dL Est Cr Clr Drug Dosing mL/min Estimated GFR (MDRD) BUN/Creatinine Ratio (No establ ref range) Glucose (70-99) mg/dL Lactic Acid 2.3 H* (0.4-2.0) mmol/L Calcium (8.5-10.1) mg/dL Total Bilirubin (0.2-1.0) mg/dL AST (15-37) U/L ALT (14-59) U/L Alkaline Phosphatase (46-116) U/L Total Protein (6.4-8.2) g/dL Albumin (3.4-5.0) g/dL Globulin Albumin/Globulin Ratio Amylase (25-115) U/L Meds: Medications Discontinued Medications Generic Name Dose Route Start Last Admin Trade Name Freq PRN Reason Stop Dose Admin Ceftriaxone Sodium 1 gm/ 0 gm 03/26/21 09:13 03/26/21 09:32 Lidocaine HCl 2.1 ml IM 03/26/21 09:14 21 inj ONETIME ONE Administration Hydromorphone HCl 0.5 mg 03/26/21 06:56 03/26/21 07:28 Hydromorphone 0.5 Mg/0.5 Ml Syringe IVPUSH 03/26/21 06:57 0.5 mg ONETIME ONE Administration Sodium Polystyrene Sulfonate 15 gm 03/26/21 09:13 03/26/21 09:32 Sodium Polystyrene Sulfonate 15 Gm/60 Ml Susp 60 Ml Bot PO 03/26/21 09:14 15 gm ONETIME ONE Administration
[2021-03-26 06:58] VITALS: BP 148/119; PULSE 126
[2021-03-26 07:51] LABS: ANION GAP 16.7 mEq/L (7-13); CHLORIDE,CL 101 mmol/L (98-107); SODIUM,NA 132 mmol/L (136-145)
--- NOTE | 2021-03-26 08:22 | CR ---
PROCEDURE INFORMATION: Exam: XR Chest Exam date and time: 03/26/2021 7:24 AM Age: 25 years old Clinical indication: Shortness of breath; Additional info: SOB TECHNIQUE: Imaging protocol: XR of the chest. Views: 1 view. COMPARISON: CT Chest w Cont, Chest w Cont 03/22/2021 6:52 PM FINDINGS: Lungs: There is left lower lobe airspace disease, with subtle air bronchogram formation, which could be due to pneumonia. Pleural spaces: No pleural effusion or pneumothorax. Heart/Mediastinum: The cardiac silhouette is borderline enlarged.The mediastinal contours are normal. Bones/joints: No acute osseous abnormality. IMPRESSION: Possible left lower lobe pneumonia.
[2021-03-26] MEDS ORDERED: cefTRIAXone 1 GM, Lidocaine 1% 2.1 ML IM ONE ×2 (09:13)
[2021-03-26] MEDS ORDERED: Sodium Polystyrene Sulfonate 15 GM/60 ML Susp 60 ML Bot PO ONE (09:13)
== END 2021-03-26 09:38 | disposition home or self-care (01) ==
LOC: DL.ED 06:31
DX: J18.9 Pneumonia, unspecified organism (principal); E87.5 Hyperkalemia; J45.909 Unspecified asthma, uncomplicated; Z86.16 Personal history of COVID-19; Z79.899 Other long term (current) drug therapy
CPT/HCPCS: 36415; 71045; 80053; 82150; 83605; 85025; 85610; 96372; 96374; 99285; A9270; J0696; J1170

== ENCOUNTER 2021-03-27 11:31 | Emergency (ER) | payer MEDICAID ==
[2021-03-27 11:37] VITALS: BP 107/60; PULSE 130
--- NOTE | 2021-03-27 11:39 | EDM.PDOC ---
ED HPI GENERAL MEDICAL PROBLEM - General Stated Complaint: AMBULANCE Time Seen by Provider: 03/27/21 11:33 Source of Information: Reports: Patient, EMS, Old Records, RN, RN Notes Reviewed History Limitations: Reports: No Limitations - History of Present Illness INITIAL COMMENTS - FREE TEXT/NARRATIVE: Saloni is a 25 y/o female with a history of liver cirrhosis with ascites who presents to the ED via personal vehicle with complaints of shortness of breath, abdominal pain, and bilateral lower edema. The patient was examined in this facility yesterday for similar complaints yesterday and was diagnosed with pneumonia of the left lower lobe. She was started on azithromycin and Augmentin in the ED and states she obtained her prescriptions. She states she feels as though she requires a paracentesis. She denies fever, shaking chills, chest pain, palpitations, nausea, vomiting, constipation, or diarrhea. Generalized Pain Score (Numeric/FACES): 5 - Related Data Allergies Allergy/AdvReac Type Severity Reaction Status Date / Time No Known Allergies Allergy Verified 03/27/21 11:33 Home Meds: Home Meds Pantoprazole [ProTONIX] 40 mg PO DAILY 02/20/21 [History] Spironolactone 50 mg PO DAILY 02/20/21 [History] Ondansetron [Zofran ODT] 4 mg PO Q6H PRN 03/16/21 [History] Past Medical History - Past Health History Medical/Surgical History: Denies Medical/Surgical History HEENT History: Reports: None Cardiovascular History: Reports: None Respiratory History: Reports: Asthma Gastrointestinal History: Reports: Cirrhosis, Jaundice, Other (See Below) Other Gastrointestinal History: ascites Genitourinary History: Reports: None 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: Musculoskeletal History: Reports: None Neurological History: Reports: None Psychiatric History: Reports: Addiction, Anxiety, Depression Endocrine/Metabolic History: Reports: None Hematologic History: Reports: Anemia Immunologic History: Reports: None Oncologic (Cancer) History: Reports: None Dermatologic History: Reports: None - Infectious Disease History Infectious Disease History: Reports: Chicken Pox, Novel Coronavirus - Past Surgical History Head Surgeries/Procedures: Reports: None Musculoskeletal Surgical History: Reports: Other (See Below) Other Musculoskeletal Surgeries/Procedures:: arm Social & Family History - Family History Family Medical History: No Pertinent Family History - Caffeine Use Caffeine Use: Reports: None - Sexual History Sexual History: Reports: Sexually Active - Living Situation & Occupation Living situation: Reports: with Family ED ROS GENERAL - Review of Systems Review Of Systems: Comprehensive ROS is negative, except as noted in HPI. ED EXAM, GENERAL - Physical Exam Exam: See Below Exam Limited By: No Limitations General Appearance: Alert, Mild Distress (Shortness of breath ) Eye Exam: Bilateral Eye: EOMI, PERRL (2mm), Other (Scleral icterus) Ears: Normal External Exam, Hearing Grossly Normal Nose: Normal Inspection, Normal Mucosa, Nasal Drainage Throat/Mouth: Normal Inspection, Normal Oropharynx, Normal Voice, No Airway Compromise Head: Atraumatic, Normocephalic Neck: Normal Inspection, Supple, Non-Tender, Full Range of Motion. No: Lymphadenopathy (L), Lymphadenopathy (R) Respiratory/Chest: No Respiratory Distress, Chest Non-Tender, Crackles, Accessory Muscle Use. No: Wheezing, Stridor Cardiovascular: Normal Peripheral Pulses, Regular Rate, Rhythm, No Gallop, JVD, Tachycardia. No: No Edema, No Murmur, No Rub Peripheral Pulses: 2+: Radial (L), Radial (R) GI/Abdominal: Normal Bowel Sounds, No Abnormal Bruit, No Mass, Pelvis Stable, Distended, Guarding, Tender, Other (Gross ascites) (Female) Exam: Deferred Rectal (Female) Exam: Deferred Back Exam: Normal Inspection, Full Range of Motion Extremities: Normal Range of Motion, Normal Capillary Refill, Pedal Edema (+1 pitting, bilaterally) Neurological: Alert, Oriented, CN II-XII Intact, Normal Cognition, Normal Gait, No Motor/Sensory Deficits Psychiatric: Normal Mood, Anxious Skin Exam: Warm, Dry, Intact, No Rash, Jaundice. No: Cyanosis, Ecchymosis, Erythema, Mottled, Pallor Course - Vital Signs Last Recorded V/S: Last Vital Signs Temp 97.8 F 03/27/21 11:10 Pulse 130 H 03/27/21 11:10 Resp 20 03/27/21 11:10 BP 107/60 03/27/21 11:10 Pulse Ox 99 03/27/21 11:10 - Orders/Labs/Meds Labs: Laboratory Tests 03/27/21 03/27/21 03/27/21 Range/Units 11:45 11:45 11:45 WBC 14.1 H (5.0-10.0) 10^3/uL RBC 4.76 (4.2-5.4) 10^6/uL Hgb 11.7 L (12.0-16.0) g/dL Hct 36.6 L (37.0-47.0) % MCV 76.9 L (80-100) fL MCH 24.6 L (27.0-34.0) pg MCHC 32.0 L (33.0-35.0) g/dL Plt Count 153 (150-450) 10^3/uL Neut % (Auto) 81.1 H (42.2-75.2) % Lymph % (Auto) 11.9 L (20.5-50.1) % [place] % (Auto) 6.2 (2-8) % Eos % (Auto) 0.6 L (1.0-3.0) % Baso % (Auto) 0.2 (0.0-1.0) % Sodium 132 L (136-145) mmol/L Potassium 4.0 D (3.5-5.1) mmol/L Chloride 100 (98-107) mmol/L Carbon Dioxide 19 L (21-32) mmol/L Anion Gap 17.0 H (7-13) mEq/L BUN 17 (7-18) mg/dL Creatinine 1.03 H (0.55-1.02) mg/dL Est Cr Clr Drug Dosing 69.07 mL/min Estimated GFR (MDRD) > 60 BUN/Creatinine Ratio 16.5 (No establ ref range) Glucose 101 H (70-99) mg/dL Lactic Acid 2.5 H* (0.4-2.0) mmol/L Calcium 8.2 L (8.5-10.1) mg/dL Total Bilirubin 1.6 H (0.2-1.0) mg/dL AST 65 H (15-37) U/L ALT 111 H (14-59) U/L Alkaline Phosphatase 108 (46-116) U/L C-Reactive Protein 2.2 H (0.0-0.9) mg/dL B-Natriuretic Peptide 1290 H (0-100) pg/ml Total Protein 6.4 (6.4-8.2) g/dL Albumin 3.2 L (3.4-5.0) g/dL Globulin 3.2 Albumin/Globulin Ratio 1.00 Meds: Medications Discontinued Medications Generic Name Dose Route Start Last Admin Trade Name Freq PRN Reason Stop Dose Admin Hydromorphone HCl 0.5 mg 03/27/21 12:43 03/27/21 12:45 Hydromorphone 0.5 Mg/0.5 Ml Syringe IM 03/27/21 12:44 0.5 mg ONETIME ONE Administration - Re-Assessments/Exams Free Text/Narrative Re-Assessment/Exam: 03/27/21 Dilaudid 0.5mg IM administered while labs pending. WBC with left shift and lactic acid increasing despite antibiotics. Case discussed with Dr. Urias, hospitalist at [facility], who kindly accepted patient for transfer. Findings of examination, lab work, and discussion with Dr. Urias reviewed with patient. Patient verbalized understanding and agreement with the plan of care. Departure - Departure Time of Disposition: 14:34 Disposition: DC/Tfer to Acute Hospital 02 Condition: Poor Clinical Impression: Alcoholic cirrhosis of liver with ascites, Elevated brain natriuretic peptide (BNP) level, Hyponatremia Left lower lobe pneumonia Qualifiers: Pneumonia type: due to unspecified organism Qualified Code(s): J18.9 - Pneumonia, unspecified organism - Discharge Information Forms: Interfacility Transfer [id number]
[2021-03-27 12:12] LABS: CHLORIDE,CL 100 mmol/L (98-107); SODIUM,NA 132 mmol/L (136-145)
[2021-03-27] MEDS ORDERED: HYDROmorphone 1 MG/ML Syringe IVPUSH ONE (12:33)
[2021-03-27] MEDS ORDERED: HYDROmorphone 0.5 MG/0.5 ML Syringe IM ONE (12:43)
--- NOTE | 2021-03-27 13:36 | US ---
EXAMINATION: Abdomen Ltd SEX: Female AGE: 25 years CLINICAL HISTORY: 25-year-old female (drug abuse and apparent hepatic failure) with ascites. CONCLUSION: Large volume intraperitoneal fluid. Ascitic fluid collections, respectively, 4 quadrants of the abdomen (greatest diameter each) measure: 1. RUQ equals 6.42 cm 2. RLQ equals 9.64 cm. 3. LLQ equals 9.88 cm. 4. LUQ equals 6.98 cm
== END 2021-03-27 14:39 ==
LOC: DL.ED 11:31
DX: J18.9 Pneumonia, unspecified organism (principal); K70.31 Alcoholic cirrhosis of liver with ascites; R79.1 Abnormal coagulation profile; E87.1 Hypo-osmolality and hyponatremia; J45.909 Unspecified asthma, uncomplicated; Z86.16 Personal history of COVID-19; Z79.899 Other long term (current) drug therapy
CPT/HCPCS: 36415; 76705; 80053; 83605; 83880; 85025; 86140; 96372; 99285-25; J1170

== ENCOUNTER 2021-04-17 15:19 | Emergency (ER) | payer BC, MEDICAID ==
[2021-04-17 15:15] VITALS: BP 99/81; PULSE 112
--- NOTE | 2021-04-17 16:01 | EDM.PDOC ---
ED HPI GENERAL MEDICAL PROBLEM - General Chief Complaint: Abdominal Pain Stated Complaint: AMBULANCE Time Seen by Provider: 04/17/21 15:20 Source of Information: Reports: Patient, Old Records, RN, RN Notes Reviewed History Limitations: Reports: No Limitations - History of Present Illness INITIAL COMMENTS - FREE TEXT/NARRATIVE: Saloni is a 26 y/o female with a history of alcoholic cirrhosis with ascites who presents to the ED via [facility] with diffuse abdominal pain and transient shortness of breath and chest pain. The patient states her symptoms began two days ago and have progressed in that time. She notes she was discharged from [facility] recently, but she is unable to state when. The patient reports mild nausea with one bout of emesis earlier today. She denies fever, shaking chills, vision changes, dizziness, palpitations, dyspepsia, diarrhea, constipation, dysuria, or hematuria. Upper Abdomen Pain Score (Numeric/FACES): 2 - Related Data Allergies Allergy/AdvReac Type Severity Reaction Status Date / Time No Known Allergies Allergy Verified 03/27/21 11:33 Home Meds: Home Meds Pantoprazole [ProTONIX] 40 mg PO DAILY 02/20/21 [History] Spironolactone 50 mg PO DAILY 02/20/21 [History] Ondansetron [Zofran ODT] 4 mg PO Q6H PRN 03/16/21 [History] Past Medical History - Past Health History Medical/Surgical History: Denies Medical/Surgical History HEENT History: Reports: None Cardiovascular History: Reports: None Respiratory History: Reports: Asthma Gastrointestinal History: Reports: Cirrhosis, Jaundice, Other (See Below) Other Gastrointestinal History: ascites Genitourinary History: Reports: None 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 History: Reports: None Neurological History: Reports: None Psychiatric History: Reports: Addiction, Anxiety, Depression Endocrine/Metabolic History: Reports: None Hematologic History: Reports: Anemia Immunologic History: Reports: None Oncologic (Cancer) History: Reports: None Dermatologic History: Reports: None - Infectious Disease History Infectious Disease History: Reports: Chicken Pox, Novel Coronavirus - Past Surgical History Head Surgeries/Procedures: Reports: None Musculoskeletal Surgical History: Reports: Other (See Below) Other Musculoskeletal Surgeries/Procedures:: arm Social & Family History - Family History Family Medical History: No Pertinent Family History - Tobacco Use Tobacco Use Status *Q: Never Tobacco User Second Hand Smoke Exposure: No - Caffeine Use Caffeine Use: Reports: None - Recreational Drug Use Recreational Drug Use: No - Sexual History Sexual History: Reports: Sexually Active - Living Situation & Occupation Living situation: Reports: with Family ED ROS GENERAL - Review of Systems Review Of Systems: Comprehensive ROS is negative, except as noted in HPI. ED EXAM, GI/ABD - Physical Exam Exam: See Below Exam Limited By: No Limitations General Appearance: Alert, No Apparent Distress Eyes: Bilateral: Normal Appearance, EOMI Ears: Normal External Exam, Hearing Grossly Normal Nose: Normal Inspection, Normal Mucosa, No Blood Throat/Mouth: Normal Inspection, Normal Oropharynx, Normal Voice, No Airway Com promise Head: Atraumatic, Normocephalic Neck: Normal Inspection, Supple, Non-Tender, Full Range of Motion. No: Lymphadenopathy (L), Lymphadenopathy (R) Respiratory/Chest: No Respiratory Distress, Lungs Clear, Normal Breath Sounds, No Accessory Muscle Use, Chest Non-Tender Cardiovascular: Normal Peripheral Pulses, Regular Rate, Rhythm, No Gallop, No Murmur, No Rub, Tachycardia GI/Abdominal Exam: Normal Bowel Sounds, Soft, No Abnormal Bruit, No Mass, Pelvis Stable, Guarding, Tender (Diffuse to abdomen), Other (Gross ascites ) (Female) Exam: Deferred Rectal (Female) Exam: Deferred Back Exam: Normal Inspection, Full Range of Motion Extremities: Normal Inspection, Normal Range of Motion, Non-Tender, No Pedal Edema, Normal Capillary Refill Neurological: Alert, Oriented, CN II-XII Intact, Normal Cognition, Normal Gait, No Motor/Sensory Deficits Psychiatric: Normal Affect, Normal Mood Skin Exam: Warm, Dry, Intact, No Rash, Jaundice. No: Cyanosis, Ecchymosis, Erythema #1 Interpretation EKG Date: 04/17/21 Time: 16:49 Rhythm: Other (Sinus Tachycardia) Rate (Beats/Min): 108 Reed: Normal P-Wave: Present QRS: Normal ST-T: Normal QT: Normal DC/PQ Interval: 0.17 Comparison: No Change EKG Interpretation Comments: ST; No evidence of acute myocardial ischemia Course - Vital Signs Last Recorded V/S: Last Vital Signs Temp 98.3 F 04/17/21 15:01 Pulse 112 H 04/17/21 15:01 Resp 20 04/17/21 15:01 BP 99/81 04/17/21 15:01 Pulse Ox 98 04/17/21 15:01 - Orders/Labs/Meds Labs: Laboratory Tests 04/17/21 04/17/21 04/17/21 Range/Units 15:43 15:43 15:43 WBC (5.0-10.0) 10^3/uL RBC (4.2-5.4) 10^6/uL Hgb (12.0-16.0) g/dL Hct (37.0-47.0) % MCV (80-100) fL MCH (27.0-34.0) pg MCHC (33.0-35.0) g/dL Plt Count (150-450) 10^3/uL Neut % (Auto) (42.2-75.2) % Lymph % (Auto) (20.5-50.1) % [place] % (Auto) (2-8) % Eos % (Auto) (1.0-3.0) % Baso % (Auto) (0.0-1.0) % PT 11.6 (9.0-12.0) SEC INR 1.2 (0.9-1.2) APTT 21.6 L (22.0-34.0) SEC Sodium (136-145) mmol/L Potassium (3.5-5.1) mmol/L Chloride (98-107) mmol/L Carbon Dioxide (21-32) mmol/L Anion Gap (7-13) mEq/L BUN (7-18) mg/dL Creatinine (0.55-1.02) mg/dL Est Cr Clr Drug Dosing mL/min Estimated GFR (MDRD) BUN/Creatinine Ratio (No establ ref range) Glucose (70-99) mg/dL Lactic Acid 1.2 (0.4-2.0) mmol/L Calcium (8.5-10.1) mg/dL Magnesium (1.8-2.4) mg/dL Total Bilirubin (0.2-1.0) mg/dL AST (15-37) U/L ALT (14-59) U/L Alkaline Phosphatase (46-116) U/L Ammonia 29 (11-32) umol/L Troponin I High Sens (<=51) pg/mL C-Reactive Protein (0.0-0.9) mg/dL Total Protein (6.4-8.2) g/dL Albumin (3.4-5.0) g/dL Globulin Albumin/Globulin Ratio Amylase (25-115) U/L Lipase (73-393) U/L HCG, Qual Ethyl Alcohol (0) mg/dL 04/17/21 04/17/21 Range/Units 15:47 15:47 WBC 8.0 (5.0-10.0) 10^3/uL RBC 3.94 L (4.2-5.4) 10^6/uL Hgb 10.2 L D (12.0-16.0) g/dL Hct 33.2 L (37.0-47.0) % MCV 84.3 D (80-100) fL MCH 25.9 L (27.0-34.0) pg MCHC 30.7 L (33.0-35.0) g/dL Plt Count 266 D (150-450) 10^3/uL Neut % (Auto) 70.5 (42.2-75.2) % Lymph % (Auto) 19.2 L (20.5-50.1) % [place] % (Auto) 8.2 H (2-8) % Eos % (Auto) 1.5 (1.0-3.0) % Baso % (Auto) 0.6 (0.0-1.0) % PT (9.0-12.0) SEC INR (0.9-1.2) APTT (22.0-34.0) SEC Sodium 141 (136-145) mmol/L Potassium 3.2 L (3.5-5.1) mmol/L Chloride 101 (98-107) mmol/L Carbon Dioxide 28 (21-32) mmol/L Anion Gap 15.2 H (7-13) mEq/L BUN 11 (7-18) mg/dL Creatinine 0.84 (0.55-1.02) mg/dL Est Cr Clr Drug Dosing 83.95 mL/min Estimated GFR (MDRD) > 60 BUN/Creatinine Ratio 13.1 (No establ ref range) Glucose 100 H (70-99) mg/dL Lactic Acid (0.4-2.0) mmol/L Calcium 8.8 (8.5-10.1) mg/dL Magnesium 2.0 (1.8-2.4) mg/dL Total Bilirubin 1.3 H (0.2-1.0) mg/dL AST 24 (15-37) U/L ALT 26 (14-59) U/L Alkaline Phosphatase 85 (46-116) U/L Ammonia (11-32) umol/L Troponin I High Sens 26 (<=51) pg/mL C-Reactive Protein 1.9 H (0.0-0.9) mg/dL Total Protein 6.6 (6.4-8.2) g/dL Albumin 3.5 (3.4-5.0) g/dL Globulin 3.1 Albumin/Globulin Ratio 1.1 Amylase 38 (25-115) U/L Lipase 178 (73-393) U/L HCG, Qual Negative Ethyl Alcohol < 3 (0) mg/dL Meds: Medications Discontinued Medications Generic Name Dose Route Start Last Admin Trade Name Freq PRN Reason Stop Dose Admin Potassium Chloride 20 meq 04/17/21 17:37 04/17/21 17:48 Potassium Chloride 10 Meq Tab.Er PO 04/17/21 17:38 20 meq ONETIME ONE Administration - Radiology Interpretation Free Text/Narrative:: [facility] Final Radiology Report Call: [phone] assistance Online chat: [email or web address] Name: SALONI CAMARA Age: 26Years F Date: 04/17/2021 SSN: -- : [id number] Study: CR CHEST 1V FRONTAL Requesting Physician: Chanel Disla Images: 1 Addl Studies: Provided Clinical History: Chest pain Contrast: Contrast Medium: Contrast Amount: Contrast Method: CONFIDENTIALITY STATEMENT This report is intended only for use by the referring physician, and only in accordance with law. If you received this in error, call [phone]. Page 1 of 1 PROCEDURE INFORMATION: Exam: XR Chest Exam date and time: 04/17/2021 3:53 PM Age: 26 years old Clinical indication: Pain; Left-sided; Additional info: Chest pain TECHNIQUE: Imaging protocol: XR of the chest. Views: 1 view. COMPARISON: 1. CR Chest 1V Frontal 03/26/2021 7:[address] Chest w Cont, Chest w Cont 03/22/2021 6:52:01 PM FINDINGS: Lungs: Unremarkable. No consolidation. Pleural spaces: Unremarkable. No pleural effusion. No pneumothorax. Heart/Mediastinum: Moderate enlargement of the cardiac silhouette, slightly increased from 03/26. Bones/joints: No evidence of acute osseous abnormality. IMPRESSION: 1. Moderate enlargement of the cardiac silhouette, slightly increased from 03/26. This is likely due to cardiomegaly, but a component of pericardial effusion is not excluded. 2. Clear lungs. Thank you for allowing us to participate in the care of your patient. Dictated and Authenticated by: Raúl Strauss MD 04/17/2021 4:17 PM Central Time ([place] & [place]) - Re-Assessments/Exams Free Text/Narrative Re-Assessment/Exam: 04/17/21 Findings of examination, lab work, and imaging reviewed with patient. Will treat hypokalemia with KCl PO. Supportive cares discussed. Patient instructed to follow up with primary care provider in 3-5 days regarding todays visit. Red flag signs and symptoms which would warrant immediate reevaluation reviewed. Patient verbalized understanding and agreement with the plan of care. Departure - Departure Time of Disposition: 17:38 Disposition: Home, Self-Care 01 Condition: Good Clinical Impression: History of cirrhosis of liver, Hypokalemia, Normocytic hypochromic anemia - Discharge Information *PRESCRIPTION DRUG MONITORING PROGRAM REVIEWED*: Not Applicable *COPY OF PRESCRIPTION DRUG MONITORING REPORT IN PATIENT SHEFALI: Not Applicable Instructions: Iron Deficiency Anemia, Adult Referrals: Shantanu Khan [Primary Care Provider] - Forms: ED Department Discharge Additional Instructions: 1.) Follow up with your primary care provider regarding today's visit. 2.) You may take acetaminophen (Tylenol) 650mg every six hours for pain; avoid use of ibuprofen or additional NSAIDS. 3.) Continue on your previously prescribed medications. 4.) Return to the emergency department with any persistent or worsening symptoms despite medications. Sepsis Event Note (ED) - Evaluation Sepsis Screening Result: No Definite Risk
[2021-04-17 16:16] LABS: ANION GAP 15.2 mEq/L (7-13); CHLORIDE,CL 101 mmol/L (98-107); SODIUM,NA 141 mmol/L (136-145)
--- NOTE | 2021-04-17 16:17 | CR ---
PROCEDURE INFORMATION: Exam: XR Chest Exam date and time: 04/17/2021 3:53 PM Age: 26 years old Clinical indication: Pain; Left-sided; Additional info: Chest pain TECHNIQUE: Imaging protocol: XR of the chest. Views: 1 view. COMPARISON: 1. CR Chest 1V Frontal 03/26/2021 7:[address] Chest w Cont, Chest w Cont 03/22/2021 6:52:01 PM FINDINGS: Lungs: Unremarkable. No consolidation. Pleural spaces: Unremarkable. No pleural effusion. No pneumothorax. Heart/Mediastinum: Moderate enlargement of the cardiac silhouette, slightly increased from 03/26. Bones/joints: No evidence of acute osseous abnormality. IMPRESSION: 1. Moderate enlargement of the cardiac silhouette, slightly increased from 03/26. This is likely due to cardiomegaly, but a component of pericardial effusion is not excluded. 2. Clear lungs.
[2021-04-17 16:18] LABS: PTT,PARTIAL THROMBOPLSTIN TIME 21.6 SEC (22.0-34.0)
[2021-04-17] MEDS: Potassium Chloride 10 MEQ Tab.ER PO ONE (17:48)
== END 2021-04-17 17:57 | disposition home or self-care (01) ==
LOC: DL.ED 15:19
DX: E87.6 Hypokalemia (principal); D50.9 Iron deficiency anemia, unspecified; R00.0 Tachycardia, unspecified; R18.8 Other ascites; J45.909 Unspecified asthma, uncomplicated; Z86.16 Personal history of COVID-19; Z79.899 Other long term (current) drug therapy
CPT/HCPCS: 36415; 71045; 80053; 80307; 82140; 82150; 83605; 83690; 83735; 84484; 84703; 85025; 85610; 85730; 86140; 93005; 99285; A9270

== ENCOUNTER 2021-04-19 09:53 | Emergency (ER) | payer MEDICAID ==
[2021-04-19 10:20] VITALS: BP 95/74; PULSE 100
--- NOTE | 2021-04-19 10:22 | EDM.PDOC ---
ED HPI GENERAL MEDICAL PROBLEM - General Chief Complaint: Respiratory Problem Stated Complaint: [id number] TROUBLE BREATHING Time Seen by Provider: 04/19/21 10:20 Source of Information: Reports: Patient, Old Records, Provider (HODAN Stephens at [facility]), RN, RN Notes Reviewed History Limitations: Reports: No Limitations - History of Present Illness INITIAL COMMENTS - FREE TEXT/NARRATIVE: Saloni is a 26 y/o female with a history of cirrhosis with ascites who presents to the ED via personal vehicle at the request of a provider from her primary care facility for complaints of shortness of breath, chest pain, and abdominal pain. The patient was examined in this facility two days ago and was instructed to follow up with primary care to discuss management of her chronic health conditions. She states her shortness of breath is similar when she requires a paracentesis. She states she is taking her Furosemide 40mg BID, no medications were changed or added at her PCP appointment today. She denies fever, shaking chills, vision changes, dizziness, palpitations, nausea, vomiting, or diarrhea. She has taken no additional medications for her symptoms. Abdomen Pain Score (Numeric/FACES): 6 - Related Data Allergies Allergy/AdvReac Type Severity Reaction Status Date / Time No Known Allergies Allergy Verified 04/19/21 10:16 Home Meds: Home Meds Pantoprazole [ProTONIX] 40 mg PO DAILY 02/20/21 [History] Spironolactone 50 mg PO DAILY 02/20/21 [History] Ondansetron [Zofran ODT] 4 mg PO Q6H PRN 03/16/21 [History] Past Medical History - Past Health History Medical/Surgical History: Denies Medical/Surgical History HEENT History: Reports: None Cardiovascular History: Reports: None Respiratory History: Reports: Asthma Gastrointestinal History: Reports: Cirrhosis, Jaundice, Other (See Below) Other Gastrointestinal History: ascites Genitourinary History: Reports: None FLIGHT PARAMEDIC History: Reports: Musculoskeletal History: Reports: None Neurological History: Reports: None Psychiatric History: Reports: Addiction, Anxiety, Depression Endocrine/Metabolic History: Reports: None Hematologic History: Reports: Anemia Immunologic History: Reports: None Oncologic (Cancer) History: Reports: None Dermatologic History: Reports: None - Infectious Disease History Infectious Disease History: Reports: Chicken Pox, Novel Coronavirus - Past Surgical History Head Surgeries/Procedures: Reports: None Musculoskeletal Surgical History: Reports: Other (See Below) Other Musculoskeletal Surgeries/Procedures:: arm Social & Family History - Family History Family Medical History: No Pertinent Family History - Caffeine Use Caffeine Use: Reports: None - Sexual History Sexual History: Reports: Sexually Active - Living Situation & Occupation Living situation: Reports: with Family ED ROS GENERAL - Review of Systems Review Of Systems: Comprehensive ROS is negative, except as noted in HPI. ED EXAM, GENERAL - Physical Exam Exam: See Below Exam Limited By: No Limitations General Appearance: Alert, No Apparent Distress, Other (Gross ascites with jaundice) Eye Exam: Bilateral Eye: EOMI, Normal Inspection, PERRL (3mm) Ears: Normal External Exam, Normal Canal, Hearing Grossly Normal, Normal TMs Ear Exam: Bilateral Ear: Auricle Normal, Canal Normal, TM normal Nose: Normal Inspection, Normal Mucosa, No Blood Throat/Mouth: Normal Inspection, Normal Oropharynx, Normal Voice, No Airway Compromise Head: Atraumatic, Normocephalic Neck: Normal Inspection, Supple, Non-Tender, Full Range of Motion. No: Lymphadenopathy (L), Lymphadenopathy (R) Respiratory/Chest: No Respiratory Distress, Lungs Clear, Normal Breath Sounds, Chest Non-Tender, Accessory Muscle Use. No: Crackles, Rales, Rhonchi, Wheezing, Stridor, Retractions Cardiovascular: Normal Peripheral Pulses, Regular Rate, Rhythm, No Edema, No Gallop, No JVD, No Murmur, No Rub Peripheral Pulses: 2+: Radial (L), Radial (R) GI/Abdominal: Normal Bowel Sounds, Soft, Non-Tender, No Distention, No Abnormal Bruit, No Mass, Pelvis Stable (Female) Exam: Deferred Rectal (Female) Exam: Deferred Back Exam: Normal Inspection, Full Range of Motion Extremities: Normal Inspection, Normal Range of Motion, Non-Tender, No Pedal Edema, Normal Capillary Refill Neurological: Alert, Oriented, CN II-XII Intact, Normal Cognition, Normal Gait, No Motor/Sensory Deficits Psychiatric: Normal Affect, Normal Mood Skin Exam: Warm, Dry, Intact, No Rash, Jaundice. No: Cyanosis, Mottled, Pallor #1 Interpretation EKG Date: 04/19/21 Time: 10:15 Rhythm: Other (Sinus Tachycardia) Rate (Beats/Min): 102 [place]: Normal P-Wave: Present QRS: Normal ST-T: Normal QT: Normal AK/PQ Interval: 0.172 Comparison: Change From Previous EKG (04/17/21) EKG Interpretation Comments: ST; q-wave in III; No evidence of acute myocardial ischemia Course - Vital Signs Last Recorded V/S: Last Vital Signs Temp 97.3 F 04/19/21 10:16 Pulse 100 04/19/21 10:16 Resp 20 04/19/21 10:16 BP 95/74 04/19/21 10:16 Pulse Ox 100 04/19/21 10:16 - Orders/Labs/Meds Labs: Laboratory Tests 04/19/21 04/19/21 04/19/21 Range/Units 10:25 10:25 10:25 WBC 8.9 (5.0-10.0) 10^3/uL RBC 4.10 L (4.2-5.4) 10^6/uL Hgb 10.8 L (12.0-16.0) g/dL Hct 35.2 L (37.0-47.0) % MCV 85.9 (80-100) fL MCH 26.3 L (27.0-34.0) pg MCHC 30.7 L (33.0-35.0) g/dL Plt Count 250 (150-450) 10^3/uL Neut % (Auto) 74.9 (42.2-75.2) % Lymph % (Auto) 16.9 L (20.5-50.1) % [place] % (Auto) 6.4 (2-8) % Eos % (Auto) 1.5 (1.0-3.0) % Baso % (Auto) 0.3 (0.0-1.0) % Sodium 139 (136-145) mmol/L Potassium 3.7 (3.5-5.1) mmol/L Chloride 101 (98-107) mmol/L Carbon Dioxide 29 (21-32) mmol/L Anion Gap 12.7 (7-13) mEq/L BUN 10 (7-18) mg/dL Creatinine 0.78 (0.55-1.02) mg/dL Est Cr Clr Drug Dosing 90.41 mL/min Estimated GFR (MDRD) > 60 BUN/Creatinine Ratio 12.8 (No establ ref range) Glucose 92 (70-99) mg/dL Lactic Acid (0.4-2.0) mmol/L Calcium 9.3 (8.5-10.1) mg/dL Magnesium 2.0 (1.8-2.4) mg/dL Total Bilirubin 1.4 H (0.2-1.0) mg/dL AST 25 (15-37) U/L ALT 24 (14-59) U/L Alkaline Phosphatase 86 (46-116) U/L Ammonia 14 (11-32) umol/L Troponin I High Sens 20 (<=51) pg/mL C-Reactive Protein 2.1 H (0.0-0.9) mg/dL B-Natriuretic Peptide (0-100) pg/ml Total Protein 6.6 (6.4-8.2) g/dL Albumin 3.4 (3.4-5.0) g/dL Globulin 3.2 Albumin/Globulin Ratio 1.1 Amylase 32 (25-115) U/L Lipase 149 (73-393) U/L Urine Color (YELLOW) Urine Appearance (CLEAR) Urine pH (5.0-9.0) Ur Specific [place] (1.005-1.030) Urine Protein (NEGATIVE) Urine Glucose (UA) (NEGATIVE) Urine Ketones (NEGATIVE) Urine Occult Blood (NEGATIVE) Urine Nitrite (NEGATIVE) Urine Bilirubin (NEGATIVE) Urine Urobilinogen (0.2-1.0) mg/dL Ur Leukocyte Esterase (NEGATIVE) Urine RBC (0-5) /HPF Urine WBC (0-5/HPF) /HPF Ur Epithelial Cells (NOT SEEN) /HPF Urine Bacteria (0-FEW/HPF) /HPF Urine Mucus (NOT SEEN) /LPF Urine HCG, Qual Urine Opiates Screen (NEGATIVE) Ur Oxycodone Screen (NEGATIVE) Urine Methadone Screen (NEGATIVE) Ur Barbiturates Screen (NEGATIVE) U Tricyclic Antidepress (NEGATIVE) Ur Phencyclidine Scrn (NEGATIVE) Ur Amphetamine Screen (NEGATIVE) U Methamphetamines Scrn (NEGATIVE) Urine MDMA Screen (NEGATIVE) U Benzodiazepines Scrn (NEGATIVE) Urine Cocaine Screen (NEGATIVE) U Marijuana (THC) Screen (NEGATIVE) Ethyl Alcohol < 3 (0) mg/dL 04/19/21 04/19/21 04/19/21 Range/Units 10:25 10:25 12:11 WBC (5.0-10.0) 10^3/uL RBC (4.2-5.4) 10^6/uL Hgb (12.0-16.0) g/dL Hct (37.0-47.0) % MCV (80-100) fL MCH (27.0-34.0) pg MCHC (33.0-35.0) g/dL Plt Count (150-450) 10^3/uL Neut % (Auto) (42.2-75.2) % Lymph % (Auto) (20.5-50.1) % [place] % (Auto) (2-8) % Eos % (Auto) (1.0-3.0) % Baso % (Auto) (0.0-1.0) % Sodium (136-145) mmol/L Potassium (3.5-5.1) mmol/L Chloride (98-107) mmol/L Carbon Dioxide (21-32) mmol/L Anion Gap (7-13) mEq/L BUN (7-18) mg/dL Creatinine (0.55-1.02) mg/dL Est Cr Clr Drug Dosing mL/min Estimated GFR (MDRD) BUN/Creatinine Ratio (No establ ref range) Glucose (70-99) mg/dL Lactic Acid 1.2 (0.4-2.0) mmol/L Calcium (8.5-10.1) mg/dL Magnesium (1.8-2.4) mg/dL Total Bilirubin (0.2-1.0) mg/dL AST (15-37) U/L ALT (14-59) U/L Alkaline Phosphatase (46-116) U/L Ammonia (11-32) umol/L Troponin I High Sens (<=51) pg/mL C-Reactive Protein (0.0-0.9) mg/dL B-Natriuretic Peptide 1330 H (0-100) pg/ml Total Protein (6.4-8.2) g/dL Albumin (3.4-5.0) g/dL Globulin Albumin/Globulin Ratio Amylase (25-115) U/L Lipase (73-393) U/L Urine Color (YELLOW) Urine Appearance (CLEAR) Urine pH (5.0-9.0) Ur Specific [place] (1.005-1.030) Urine Protein (NEGATIVE) Urine Glucose (UA) (NEGATIVE) Urine Ketones (NEGATIVE) Urine Occult Blood (NEGATIVE) Urine Nitrite (NEGATIVE) Urine Bilirubin (NEGATIVE) Urine Urobilinogen (0.2-1.0) mg/dL Ur Leukocyte Esterase (NEGATIVE) Urine RBC (0-5) /HPF Urine WBC (0-5/HPF) /HPF Ur Epithelial Cells (NOT SEEN) /HPF Urine Bacteria (0-FEW/HPF) /HPF Urine Mucus (NOT SEEN) /LPF Urine HCG, Qual Urine Opiates Screen Negative (NEGATIVE) Ur Oxycodone Screen Negative (NEGATIVE) Urine Methadone Screen Negative (NEGATIVE) Ur Barbiturates Screen Negative (NEGATIVE) U Tricyclic Antidepress Negative (NEGATIVE) Ur Phencyclidine Scrn Negative (NEGATIVE) Ur Amphetamine Screen Negative (NEGATIVE) U Methamphetamines Scrn Negative (NEGATIVE) Urine MDMA Screen Negative (NEGATIVE) U Benzodiazepines Scrn Negative (NEGATIVE) Urine Cocaine Screen Negative (NEGATIVE) U Marijuana (THC) Screen Negative (NEGATIVE) Ethyl Alcohol (0) mg/dL 04/19/21 04/19/21 Range/Units 12:11 12:11 WBC (5.0-10.0) 10^3/uL RBC (4.2-5.4) 10^6/uL Hgb (12.0-16.0) g/dL Hct (37.0-47.0) % MCV (80-100) fL MCH (27.0-34.0) pg MCHC (33.0-35.0) g/dL Plt Count (150-450) 10^3/uL Neut % (Auto) (42.2-75.2) % Lymph % (Auto) (20.5-50.1) % [place] % (Auto) (2-8) % Eos % (Auto) (1.0-3.0) % Baso % (Auto) (0.0-1.0) % Sodium (136-145) mmol/L Potassium (3.5-5.1) mmol/L Chloride (98-107) mmol/L Carbon Dioxide (21-32) mmol/L Anion Gap (7-13) mEq/L BUN (7-18) mg/dL Creatinine (0.55-1.02) mg/dL Est Cr Clr Drug Dosing mL/min Estimated GFR (MDRD) BUN/Creatinine Ratio (No establ ref range) Glucose (70-99) mg/dL Lactic Acid (0.4-2.0) mmol/L Calcium (8.5-10.1) mg/dL Magnesium (1.8-2.4) mg/dL Total Bilirubin (0.2-1.0) mg/dL AST (15-37) U/L ALT (14-59) U/L Alkaline Phosphatase (46-116) U/L Ammonia (11-32) umol/L Troponin I High Sens (<=51) pg/mL C-Reactive Protein (0.0-0.9) mg/dL B-Natriuretic Peptide (0-100) pg/ml Total Protein (6.4-8.2) g/dL Albumin (3.4-5.0) g/dL Globulin Albumin/Globulin Ratio Amylase (25-115) U/L Lipase (73-393) U/L Urine Color Yellow (YELLOW) Urine Appearance Slightly cloudy (CLEAR) Urine pH 7.5 (5.0-9.0) Ur Specific [place] 1.020 (1.005-1.030) Urine Protein 30 H (NEGATIVE) Urine Glucose (UA) Negative (NEGATIVE) Urine Ketones Negative (NEGATIVE) Urine Occult Blood Negative (NEGATIVE) Urine Nitrite Negative (NEGATIVE) Urine Bilirubin Negative (NEGATIVE) Urine Urobilinogen 1.0 (0.2-1.0) mg/dL Ur Leukocyte Esterase Negative (NEGATIVE) Urine RBC Not seen (0-5) /HPF Urine WBC 0-5 (0-5/HPF) /HPF Ur Epithelial Cells Few (NOT SEEN) /HPF Urine Bacteria Few (0-FEW/HPF) /HPF Urine Mucus Moderate H (NOT SEEN) /LPF Urine HCG, Qual Negative Urine Opiates Screen (NEGATIVE) Ur Oxycodone Screen (NEGATIVE) Urine Methadone Screen (NEGATIVE) Ur Barbiturates Screen (NEGATIVE) U Tricyclic Antidepress (NEGATIVE) Ur Phencyclidine Scrn (NEGATIVE) Ur Amphetamine Screen (NEGATIVE) U Methamphetamines Scrn (NEGATIVE) Urine MDMA Screen (NEGATIVE) U Benzodiazepines Scrn (NEGATIVE) Urine Cocaine Screen (NEGATIVE) U Marijuana (THC) Screen (NEGATIVE) Ethyl Alcohol (0) mg/dL Meds: Medications Discontinued Medications Generic Name Dose Route Start Last Admin Trade Name Freq PRN Reason Stop Dose Admin Midodrine 5 mg 04/19/21 12:23 04/19/21 12:37 Midodrine 2.5 Mg Tab PO 04/19/21 12:24 5 mg ONETIME ONE Administration Spironolactone 50 mg 04/19/21 12:23 04/19/21 12:37 Spironolactone 25 Mg Tab PO 04/19/21 12:24 50 mg ONETIME ONE Administration - Re-Assessments/Exams Free Text/Narrative Re-Assessment/Exam: 04/19/21 US of abdomen obtained to assess ascites levels. Labs pending. Junior Financial Analyst spoke with Antelmo Rahman about upcoming appointments for patient, including gastroenterology/hepatology on 04/23 and cardiology on 04/25. Findings of examination, lab work, and imaging reviewed with patient. Will treat with Midodrine 5mg and Spironolactone 50mg. Supportive cares discussed. Patient instructed to keep her hepatology and cardiology appointments and to follow up with primary care provider for management of chronic health conditions and medication management. Red flag signs and symptoms which would warrant immediate reevaluation reviewed. Patient verbalized understanding and agreement with the plan of care. Departure - Departure Time of Disposition: 12:20 Disposition: Home, Self-Care 01 Condition: Fair Clinical Impression: History of cirrhosis of liver, History of ascites, Elevated brain natriuretic peptide (BNP) level, Shortness of breath - Discharge Information *PRESCRIPTION DRUG MONITORING PROGRAM REVIEWED*: Not Applicable *COPY OF PRESCRIPTION DRUG MONITORING REPORT IN PATIENT SHEFALI: Not Applicable Forms: ED Department Discharge Additional Instructions: Rx: midodrine 5mg (#21) Rx: spironolactone 50mg (#7) 1.) Continue with your previously scheduled appointment with gastroenterology/hepatology on 04/23 at 3:10pm 2.) Continue with your previously scheduled appointment with cardiology on 04/25 at 8:50am. 3.) Follow up with your primary care provider regarding today's visit in 3-5 days. 4.) Return to the emergency department with any persist or worsening symptoms despite medications. Sepsis Event Note (ED) - Evaluation Sepsis Screening Result: No Definite Risk
[2021-04-19 11:05] LABS: ANION GAP 12.7 mEq/L (7-13); CHLORIDE,CL 101 mmol/L (98-107); SODIUM,NA 139 mmol/L (136-145)
--- NOTE | 2021-04-19 11:35 | US ---
EXAMINATION: Abdomen Ltd SEX: Female AGE: 26 years CLINICAL HISTORY: 26-year-old female reported on previous exams dating back to January to have "large volume (massive) ascites". Recheck. Interpretation: Ascites. RUQ 8.70 cm. (6.42 cm.... 27 March 2021 comparison exam) RLQ 10.01 cm. (9.64 cm) LLQ 7.75 cm. (9.88 cm) LUQ 5.80 cm. (6.98 cm)
[2021-04-19 12:17] LABS: AMPHETAMINES,URINE NEGATIVE (NEGATIVE); BARBITURATES,URINE NEGATIVE (NEGATIVE); BENZODIAZEPINE,URINE NEGATIVE (NEGATIVE); MDMA (ECSTASY), URINE NEGATIVE (NEGATIVE); METHADONE,URINE NEGATIVE (NEGATIVE); METHAMPHETAMINES,URINE NEGATIVE (NEGATIVE); OPIATES,URINE NEGATIVE (NEGATIVE); OXYCODONE,URINE NEGATIVE (NEGATIVE); PHENCYCLIDINE,URINE NEGATIVE (NEGATIVE); TCA,URINE NEGATIVE (NEGATIVE)
[2021-04-19] MEDS ORDERED: Midodrine 2.5 MG Tab PO ONE (12:23)
[2021-04-19] MEDS ORDERED: Spironolactone 25 MG Tab PO ONE (12:23)
== END 2021-04-19 12:39 | disposition home or self-care (01) ==
LOC: DL.ED 09:53
DX: R06.02 Shortness of breath (principal); R79.0 Abnormal level of blood mineral; Z87.19 Personal history of other diseases of the digestive system; Z87.738 Personal history of other specified (corrected) congenital malformations of digestive system; Z79.899 Other long term (current) drug therapy
CPT/HCPCS: 36415; 76705; 80053; 80305-QW; 80307; 81001; 81025; 82140; 82150; 83605; 83690; 83735; 83880; 84484; 85025; 86140; 93005; 99285-25; A9270-GY

== ENCOUNTER 2021-04-20 13:30 | Emergency (ER) | payer MEDICAID ==
[2021-04-20 13:36] VITALS: BP 105/74; PULSE 98
--- NOTE | 2021-04-20 13:55 | EDM.PDOC ---
ED HPI GENERAL MEDICAL PROBLEM - General Chief Complaint: Abdominal Pain Time Seen by Provider: 04/20/21 13:54 Source of Information: Reports: Patient, EMS, Old Records, RN, RN Notes Reviewed History Limitations: Reports: No Limitations - History of Present Illness INITIAL COMMENTS - FREE TEXT/NARRATIVE: Saloni is a 26 y/o female with a history of alcoholic cirrhosis with ascites who presents to the ED via personal vehicle with complaints of shortness of breath and abdominal pain. The patient states her symptoms feel similar to when she requires a paracentesis, however are more aggravated today. She denies fever, shaking chills, vision changes, dizziness, chest pain/pressure, palpitations, nausea, vomiting, or diarrhea. She states the medications she was started on by this securities underwriter yesterday are medications she already has and is taking, despite lengthy discussion about medications. Abdomen Pain Score (Numeric/FACES): 4 - Related Data Allergies Allergy/AdvReac Type Severity Reaction Status Date / Time No Known Allergies Allergy Verified 04/20/21 13:32 Home Meds: Home Meds Pantoprazole [ProTONIX] 40 mg PO DAILY 02/20/21 [History] Spironolactone 50 mg PO DAILY 02/20/21 [History] Ondansetron [Zofran ODT] 4 mg PO Q6H PRN 03/16/21 [History] Past Medical History - Past Health History Medical/Surgical History: Denies Medical/Surgical History HEENT History: Reports: None Cardiovascular History: Reports: None Respiratory History: Reports: Asthma Gastrointestinal History: Reports: Cirrhosis, Jaundice, Other (See Below) Other Gastrointestinal History: ascites Genitourinary History: Reports: None SPECIAL SERVICE REPRESENTATIVE History: Reports: Musculoskeletal History: Reports: None Neurological History: Reports: None Psychiatric History: Reports: Addiction, Anxiety, Depression Endocrine/Metabolic History: Reports: None Hematologic History: Reports: Anemia Immunologic History: Reports: None Oncologic (Cancer) History: Reports: None Dermatologic History: Reports: None - Infectious Disease History Infectious Disease History: Reports: Chicken Pox, Novel Coronavirus - Past Surgical History Head Surgeries/Procedures: Reports: None Musculoskeletal Surgical History: Reports: Other (See Below) Other Musculoskeletal Surgeries/Procedures:: arm Social & Family History - Family History Family Medical History: No Pertinent Family History - Tobacco Use Tobacco Use Status *Q: Never Tobacco User - Caffeine Use Caffeine Use: Reports: Coffee - Recreational Drug Use Recreational Drug Use: Yes Drug Use in Last 12 Months: Yes - Sexual History Sexual History: Reports: Sexually Active - Living Situation & Occupation Living situation: Reports: with Family ED ROS GENERAL - Review of Systems Review Of Systems: Comprehensive ROS is negative, except as noted in HPI. ED EXAM, GENERAL - Physical Exam Exam: See Below Exam Limited By: No Limitations General Appearance: Alert, Mild Distress (Shortness of breath) Eye Exam: Bilateral Eye: EOMI, Normal Inspection, PERRL (3mm) Ears: Normal External Exam, Hearing Grossly Normal Nose: Normal Inspection, Normal Mucosa, No Blood Throat/Mouth: Normal Inspection, Normal Oropharynx, No Airway Compromise Head: Atraumatic, Normocephalic Neck: Normal Inspection, Supple, Non-Tender, Full Range of Motion Respiratory/Chest: Lungs Clear, Normal Breath Sounds, Chest Non-Tender, Respiratory Distress, Accessory Muscle Use. No: Crackles, Rales, Rhonchi, Wheezing, Stridor Cardiovascular: Normal Peripheral Pulses, Regular Rate, Rhythm, No Edema, No Gallop, No JVD, No Murmur, No Rub Peripheral Pulses: 2+: Radial (L), Radial (R) GI/Abdominal: Soft, Non-Tender, No Abnormal Bruit, No Mass, Pelvis Stable, Distended, Abnormal Bowel Sounds (Hypoactive), Other (Gross ascites) (Female) Exam: Deferred Rectal (Female) Exam: Deferred Back Exam: Normal Inspection, Full Range of Motion Extremities: Normal Inspection, Normal Range of Motion, Normal Capillary Refill Neurological: Alert, Oriented, CN II-XII Intact, Normal Cognition, Normal Gait, No Motor/Sensory Deficits Psychiatric: Normal Affect, Anxious Skin Exam: Warm, Dry, Intact, No Rash, Jaundice. No: Cyanosis, Mottled, Pallor Course - Vital Signs Last Recorded V/S: Last Vital Signs Temp 97.9 F 04/20/21 13:33 Pulse 98 04/20/21 13:33 Resp 20 04/20/21 13:33 BP 105/74 04/20/21 13:33 Pulse Ox 98 04/20/21 13:33 - Orders/Labs/Meds Labs: Laboratory Tests 04/20/21 04/20/21 04/20/21 Range/Units 13:57 13:57 13:57 WBC 7.5 (5.0-10.0) 10^3/uL RBC 3.83 L (4.2-5.4) 10^6/uL Hgb 10.0 L (12.0-16.0) g/dL Hct 32.8 L (37.0-47.0) % MCV 85.6 (80-100) fL MCH 26.1 L (27.0-34.0) pg MCHC 30.5 L (33.0-35.0) g/dL Plt Count 237 (150-450) 10^3/uL Neut % (Auto) 70.7 (42.2-75.2) % Lymph % (Auto) 20.0 L (20.5-50.1) % [place] % (Auto) 6.7 (2-8) % Eos % (Auto) 1.9 (1.0-3.0) % Baso % (Auto) 0.7 (0.0-1.0) % PT (9.0-12.0) SEC INR (0.9-1.2) APTT (22.0-34.0) SEC Sodium 141 (136-145) mmol/L Potassium 3.4 L (3.5-5.1) mmol/L Chloride 101 (98-107) mmol/L Carbon Dioxide 30 (21-32) mmol/L Anion Gap 13.4 H (7-13) mEq/L BUN 10 (7-18) mg/dL Creatinine 0.83 (0.55-1.02) mg/dL Est Cr Clr Drug Dosing 81.24 mL/min Estimated GFR (MDRD) > 60 BUN/Creatinine Ratio 12.0 (No establ ref range) Glucose 95 (70-99) mg/dL Lactic Acid 1.2 (0.4-2.0) mmol/L Calcium 8.7 (8.5-10.1) mg/dL Magnesium 2.1 (1.8-2.4) mg/dL Total Bilirubin 1.4 H (0.2-1.0) mg/dL AST 21 (15-37) U/L ALT 21 (14-59) U/L Alkaline Phosphatase 81 (46-116) U/L Troponin I High Sens 17 (<=51) pg/mL C-Reactive Protein 2.5 H (0.0-0.9) mg/dL B-Natriuretic Peptide 1250 H (0-100) pg/ml Total Protein 6.4 (6.4-8.2) g/dL Albumin 3.3 L (3.4-5.0) g/dL Globulin 3.1 Albumin/Globulin Ratio 1.06 HCG, Qual Urine Color (YELLOW) Urine Appearance (CLEAR) Urine pH (5.0-9.0) Ur Specific [place] (1.005-1.030) Urine Protein (NEGATIVE) Urine Glucose (UA) (NEGATIVE) Urine Ketones (NEGATIVE) Urine Occult Blood (NEGATIVE) Urine Nitrite (NEGATIVE) Urine Bilirubin (NEGATIVE) Urine Urobilinogen (0.2-1.0) mg/dL Ur Leukocyte Esterase (NEGATIVE) Urine RBC (0-5) /HPF Urine WBC (0-5/HPF) /HPF Ur Epithelial Cells (NOT SEEN) /HPF Urine Bacteria (0-FEW/HPF) /HPF 04/20/21 04/20/21 04/20/21 Range/Units 13:57 13:57 14:53 WBC (5.0-10.0) 10^3/uL RBC (4.2-5.4) 10^6/uL Hgb (12.0-16.0) g/dL Hct (37.0-47.0) % MCV (80-100) fL MCH (27.0-34.0) pg MCHC (33.0-35.0) g/dL Plt Count (150-450) 10^3/uL Neut % (Auto) (42.2-75.2) % Lymph % (Auto) (20.5-50.1) % [place] % (Auto) (2-8) % Eos % (Auto) (1.0-3.0) % Baso % (Auto) (0.0-1.0) % PT 11.9 (9.0-12.0) SEC INR 1.2 (0.9-1.2) APTT 23.5 (22.0-34.0) SEC Sodium (136-145) mmol/L Potassium (3.5-5.1) mmol/L Chloride (98-107) mmol/L Carbon Dioxide (21-32) mmol/L Anion Gap (7-13) mEq/L BUN (7-18) mg/dL Creatinine (0.55-1.02) mg/dL Est Cr Clr Drug Dosing mL/min Estimated GFR (MDRD) BUN/Creatinine Ratio (No establ ref range) Glucose (70-99) mg/dL Lactic Acid (0.4-2.0) mmol/L Calcium (8.5-10.1) mg/dL Magnesium (1.8-2.4) mg/dL Total Bilirubin (0.2-1.0) mg/dL AST (15-37) U/L ALT (14-59) U/L Alkaline Phosphatase (46-116) U/L Troponin I High Sens (<=51) pg/mL C-Reactive Protein (0.0-0.9) mg/dL B-Natriuretic Peptide (0-100) pg/ml Total Protein (6.4-8.2) g/dL Albumin (3.4-5.0) g/dL Globulin Albumin/Globulin Ratio HCG, Qual Negative Urine Color Yellow (YELLOW) Urine Appearance Clear (CLEAR) Urine pH 8.0 (5.0-9.0) Ur Specific [place] 1.020 (1.005-1.030) Urine Protein Negative (NEGATIVE) Urine Glucose (UA) Negative (NEGATIVE) Urine Ketones Negative (NEGATIVE) Urine Occult Blood Negative (NEGATIVE) Urine Nitrite Negative (NEGATIVE) Urine Bilirubin Negative (NEGATIVE) Urine Urobilinogen 0.2 (0.2-1.0) mg/dL Ur Leukocyte Esterase Trace H (NEGATIVE) Urine RBC 0-5 (0-5) /HPF Urine WBC 0-5 (0-5/HPF) /HPF Ur Epithelial Cells Few (NOT SEEN) /HPF Urine Bacteria Few (0-FEW/HPF) /HPF - Re-Assessments/Exams Free Text/Narrative Re-Assessment/Exam: 04/20/[address] Chaves, hospitalist at [facility], who kindly accepted patient for transfer for paracentesis. Findings of examination, lab work, and discussion with Dr. Chaves reviewed with patient. Patient verbalized understanding and agreement with the plan of care. Departure - Departure Time of Disposition: 15:08 Disposition: DC/Tfer to [facility] 02 Condition: Fair Clinical Impression: Decompensated hepatic cirrhosis, Elevated brain natriuretic peptide (BNP) level, Normocytic hypochromic anemia, Shortness of breath Ascites Qualifiers: Ascites type: other type Qualified Code(s): R18.8 - Other ascites - Discharge Information Referrals: [facility] [Primary Care Provider] - Forms: ED Department Discharge, Interfacility Transfer [facility] Sepsis Event Note (ED) - Evaluation Sepsis Screening Result: No Definite Risk
[2021-04-20 14:26] LABS: ANION GAP 13.4 mEq/L (7-13); CHLORIDE,CL 101 mmol/L (98-107); SODIUM,NA 141 mmol/L (136-145)
[2021-04-20 15:31] LABS: PTT,PARTIAL THROMBOPLSTIN TIME 23.5 SEC (22.0-34.0)
== END 2021-04-20 15:31 ==
LOC: DL.ED 13:30
DX: K74.60 Unspecified cirrhosis of liver (principal); D50.9 Iron deficiency anemia, unspecified; R79.1 Abnormal coagulation profile; J45.909 Unspecified asthma, uncomplicated; Z86.16 Personal history of COVID-19; Z79.899 Other long term (current) drug therapy
CPT/HCPCS: 36415; 80053; 81001; 83605; 83735; 83880; 84484; 84703; 85025; 85610; 85730; 86140; 87086; 87088; 87186; 99285

== ENCOUNTER 2021-10-23 17:23 | Observation (INO) | payer MEDICAID ==
[2021-10-23 18:26] LABS: ANION GAP 16.5 mEq/L (7-13); CHLORIDE,CL 97 mmol/L (98-107); SODIUM,NA 139 mmol/L (136-145)
[2021-10-23] MEDS ORDERED: Potassium Chloride 20 MEQ in Premix Bag 1 BAG IV ONE (18:34)
[2021-10-23] MEDS ORDERED: MVI, Adult with Vitamin K 10 ML, Thiamine 100 MG, Folic Acid 1 MG in Lactated Ringers 1... IV ONE ×4 (18:43)
[2021-10-23] MEDS ORDERED: Promethazine 25 MG/ML SDV IM PRN (22:56)
[2021-10-23] MEDS ORDERED: Acetaminophen 325 MG Tab PO PRN (22:56)
[2021-10-23] MEDS ORDERED: Albuterol/Ipratropium 3.0-0.5 MG/3 ML Neb Soln NEB PRN (22:56)
[2021-10-23] MEDS ORDERED: HYDROmorphone 0.5 MG/0.5 ML Syringe IVPUSH PRN (22:56)
[2021-10-23] MEDS ORDERED: Acetaminophen/oxyCODONE 325-5 MG Tab PO PRN (22:56)
[2021-10-23] MEDS ORDERED: Magnesium Sulfate/Water 2 GM in Premix Bag 1 BAG IV ONE (22:58)
[2021-10-23] MEDS ORDERED: Potassium Chloride 10 MEQ Tab.ER PO ONE (22:58)
[2021-10-23] MEDS ORDERED: Sodium Chloride 0.9% 500 ML IV SCH (23:45)
[2021-10-24] MEDS ORDERED: Bumetanide 1 MG/4 ML MDV IVPUSH ONE (00:41)
[2021-10-24] MEDS: Ondansetron 4 MG/2 ML SDV IVPUSH PRN ×2 (01:41→08:20)
[2021-10-24 07:34] LABS: CHLORIDE,CL 101 mmol/L (98-107); SODIUM,NA 140 mmol/L (136-145)
[2021-10-24 07:43] VITALS: BP 105/57; PULSE 101
[2021-10-24] MEDS ORDERED: Potassium Chloride 10% 20 MEQ/15 ML Soln 15 ML UD Cup PO SCH (08:00)
[2021-10-24] MEDS ORDERED: Potassium Chloride 10 MEQ Tab.ER PO ONE (09:06)
== END 2021-10-24 09:48 | disposition home or self-care (01) ==
LOC: DL.ED 17:23 → DL.MS 19:39
PROVIDERS: ADMIT Internal Medicine; ATTEND Internal Medicine
DX: E87.6 Hypokalemia (principal); K76.9 Liver disease, unspecified; I50.20 Unspecified systolic (congestive) heart failure; E55.9 Vitamin D deficiency, unspecified; K21.9 Gastro-esophageal reflux disease without esophagitis; F41.9 Anxiety disorder, unspecified; E87.8 Other disorders of electrolyte and fluid balance, not elsewhere classified; R73.9 Hyperglycemia, unspecified; F10.10 Alcohol abuse, uncomplicated; Z79.899 Other long term (current) drug therapy; Z20.822 Contact with and (suspected) exposure to COVID-19
CPT/HCPCS: 36415; 80053; 80307; 83735; 83880; 84484; 85025; 86140; 93005; 96365; 96366; 96368; 99217; 99219; 99285-25; A9270-GY; J2405; J3411; J3475; J3480; J3490; J7040; J7120; U0002

== ENCOUNTER 2022-01-21 20:01 | Inpatient (IN) | payer MEDICAID ==
[2022-01-21] MEDS ORDERED: LORazepam 2 MG/ML SDV ONE (21:04)
[2022-01-21] MEDS ORDERED: levETIRAcetam in NaCl (iso-os) 1,000 MG in Premix Bag 1 BAG IV ONE ×2 (21:06)
[2022-01-21] MEDS ORDERED: LORazepam 2 MG/ML SDV IVPUSH ONE (21:06)
[2022-01-21] MEDS ORDERED: Lactated Ringers 1,000 ML IV ONE (21:07)
[2022-01-21 21:21] LABS: PTT,PARTIAL THROMBOPLSTIN TIME 21.9 SEC (22.0-34.0)
[2022-01-21 21:27] LABS: AMPHETAMINES,URINE NEGATIVE (NEGATIVE); BARBITURATES,URINE NEGATIVE (NEGATIVE); BENZODIAZEPINE,URINE NEGATIVE (NEGATIVE); MDMA (ECSTASY), URINE NEGATIVE (NEGATIVE); METHADONE,URINE NEGATIVE (NEGATIVE); METHAMPHETAMINES,URINE POSITIVE (NEGATIVE); OPIATES,URINE NEGATIVE (NEGATIVE); OXYCODONE,URINE NEGATIVE (NEGATIVE); PHENCYCLIDINE,URINE NEGATIVE (NEGATIVE); TCA,URINE NEGATIVE (NEGATIVE)
[2022-01-21 21:31] LABS: ANION GAP 19.5 mEq/L (7-13); CHLORIDE,CL 93 mmol/L (98-107); SODIUM,NA 137 mmol/L (136-145)
[2022-01-21 21:38] LABS: ESTIMATED GFR 48 mL/min (>=60)
[2022-01-21] MEDS ORDERED: Magnesium Sulfate/Water 2 GM in Premix Bag 1 BAG IV ONE ×2 (21:46→22:06)
[2022-01-21] MEDS ORDERED: Sodium Chloride 0.9% 1,000 ML IV ONE (21:47)
[2022-01-21] MEDS ORDERED: Magnesium Sulfate/Water 50 ML ONE (22:07)
[2022-01-21] MEDS ORDERED: Iopamidol 755 Mg/ML 100 ML Bottle IVPUSH ONE (22:23)
[2022-01-22] MEDS ORDERED: Ondansetron 4 MG/2 ML SDV IVPUSH PRN (02:51)
[2022-01-22] MEDS ORDERED: Thiamine 100 MG in Sodium Chloride 0.9% 50 ML IV ONE ×2 (02:51→04:00)
[2022-01-22] MEDS ORDERED: HYDROmorphone 0.5 MG/0.5 ML Syringe IVPUSH PRN (02:51)
[2022-01-22] MEDS ORDERED: cloNIDine 0.1 MG Tab PO PRN (02:51)
[2022-01-22] MEDS ORDERED: Albuterol/Ipratropium 3.0-0.5 MG/3 ML Neb Soln NEB PRN (02:51)
[2022-01-22] MEDS ORDERED: Acetaminophen 325 MG Tab PO PRN (02:51)
[2022-01-22] MEDS ORDERED: Metoprolol Tartrate 5 MG/5 ML SDV IVPUSH PRN (03:00)
[2022-01-22] MEDS ORDERED: hydrALAZINE 20 MG/ML SDV IVPUSH PRN (03:01)
[2022-01-22] MEDS ORDERED: LORazepam 2 MG/ML SDV IVPUSH PRN (03:01)
[2022-01-22] MEDS ORDERED: Flumazenil 0.1 MG/ML 5 ML MDV IVPUSH PRN (03:01)
[2022-01-22] MEDS ORDERED: LORazepam 2 MG/ML SDV IV PRN (03:04)
[2022-01-22] MEDS ORDERED: LORazepam 0.5 MG Tab PO PRN (03:04)
[2022-01-22] MEDS ORDERED: Melatonin 3 MG Tab PO PRN (03:11)
[2022-01-22] MEDS: Pantoprazole 40 MG Vial IVPUSH SCH (06:18)
[2022-01-22] MEDS: Spironolactone 25 MG Tab PO SCH (08:37)
[2022-01-22] MEDS: Multivitamin Tab PO SCH (08:37)
[2022-01-22] MEDS: Bumetanide 1 MG Tab PO SCH ×2 (08:37→13:54)
[2022-01-22] MEDS: Folic Acid 1 MG Tab PO SCH (08:37)
[2022-01-22] MEDS: Potassium Chloride 10 MEQ Tab.ER PO SCH (08:37)
[2022-01-22] MEDS: IVABRADINE 5 MG PO SCH (23:49)
[2022-01-23] MEDS: Pantoprazole 40 MG Vial IVPUSH SCH (05:44)
[2022-01-23 06:22] LABS: ANION GAP 12.4 mEq/L (7-13)
[2022-01-23] MEDS ORDERED: Potassium Chloride 20 MEQ in Premix Bag 1 BAG IV ONE (07:08)
[2022-01-23] MEDS ORDERED: Magnesium Sulfate/Water 4 GM in Premix Bag 1 BAG IV ONE (07:08)
[2022-01-23] MEDS: Potassium Chloride 10 MEQ Tab.ER PO SCH (08:52)
[2022-01-23] MEDS: Spironolactone 25 MG Tab PO SCH (08:52)
[2022-01-23] MEDS: Folic Acid 1 MG Tab PO SCH (08:53)
[2022-01-23] MEDS: Multivitamin Tab PO SCH (08:53)
[2022-01-23] MEDS: Bumetanide 1 MG Tab PO SCH ×2 (08:53→13:45)
[2022-01-23] MEDS: IVABRADINE 5 MG PO SCH (08:56)
[2022-01-23] MEDS ORDERED: Thiamine 100 MG Tab PO SCH (09:00)
[2022-01-23] MEDS ORDERED: Potassium Chloride 10 MEQ Tab.ER PO SCH (10:00)
[2022-01-23 13:52] VITALS: BP 107/78; PULSE 89
== END 2022-01-23 14:20 | disposition home or self-care (01) | DRG 314 ==
LOC: DL.ED 20:01 → DL.MS 01-22 02:30 → DL.ED 01-22 02:38
PROVIDERS: ADMIT Internal Medicine; ATTEND Internal Medicine
DX: I95.9 Hypotension, unspecified (principal); G40.909 Epilepsy, unspecified, not intractable, without status epilepticus; K70.31 Alcoholic cirrhosis of liver with ascites; R77.8 Other specified abnormalities of plasma proteins; R79.89 Other specified abnormal findings of blood chemistry; J69.0 Pneumonitis due to inhalation of food and vomit; I50.9 Heart failure, unspecified; Z95.0 Presence of cardiac pacemaker; E87.2 Acidosis; Z79.899 Other long term (current) drug therapy; F15.10 Other stimulant abuse, uncomplicated; I50.22 Chronic systolic (congestive) heart failure; N17.9 Acute kidney failure, unspecified; I24.8 Other forms of acute ischemic heart disease; I49.9 Cardiac arrhythmia, unspecified; E83.42 Hypomagnesemia; E86.9 Volume depletion, unspecified; K21.9 Gastro-esophageal reflux disease without esophagitis; I11.0 Hypertensive heart disease with heart failure; D50.9 Iron deficiency anemia, unspecified; F41.9 Anxiety disorder, unspecified; F32.A Depression, unspecified; Z20.822 Contact with and (suspected) exposure to COVID-19; E86.0 Dehydration; R73.9 Hyperglycemia, unspecified; R31.9 Hematuria, unspecified; E87.6 Hypokalemia; E80.6 Other disorders of bilirubin metabolism; F10.129 Alcohol abuse with intoxication, unspecified; F15.129 Other stimulant abuse with intoxication, unspecified; J45.909 Unspecified asthma, uncomplicated; D64.9 Anemia, unspecified; Z87.891 Personal history of nicotine dependence; Z95.810 Presence of automatic (implantable) cardiac defibrillator; Z86.16 Personal history of COVID-19; Z91.14 Patient's other noncompliance with medication regimen
CPT/HCPCS: 36415 ×2; 70450; 71045; 71260; 80053; 80305; 80307; 81001; 81025; 82140; 82150; 82550; 82947; 83605 ×2; 83690; 83735; 83880; 84145; 84439; 84443; 84484 ×2; 85025; 85379; 85610; 85730; 86140; 87635; 93005; 94762 ×3; J1953; J2060; J3475 ×2; J7030; J7120; Q9967; 71046; 93010; 96365; 96366; 96375; 96376; 99222; 99238; 99285-25; A9270-GY; C9113; J2405; J3411; J3480; U0002

== ENCOUNTER 2022-04-06 23:40 | Emergency (ER) | payer MEDICAID ==
[2022-04-06] MEDS ORDERED: EPINEPHrine 1:10,000 1 MG/10 ML Syringe ONE (23:58)
[2022-04-07 00:31] LABS: ANION GAP 30.1 mEq/L (7-13); CHLORIDE,CL 91 mmol/L (98-107); SODIUM,NA 135 mmol/L (136-145)
[2022-04-07 00:33] LABS: ESTIMATED GFR 60 mL/min (>=60)
[2022-05-02 16:37] LABS: AMPHETAMINES,URINE NEGATIVE (NEGATIVE); BARBITURATES,URINE NEGATIVE (NEGATIVE); BENZODIAZEPINE,URINE NEGATIVE (NEGATIVE); MDMA (ECSTASY), URINE NEGATIVE (NEGATIVE); METHADONE,URINE NEGATIVE (NEGATIVE); METHAMPHETAMINES,URINE NEGATIVE (NEGATIVE); OPIATES,URINE NEGATIVE (NEGATIVE); OXYCODONE,URINE NEGATIVE (NEGATIVE); PHENCYCLIDINE,URINE NEGATIVE (NEGATIVE); TCA,URINE NEGATIVE (NEGATIVE)
== END 2022-04-06 23:57 | disposition expired ==
LOC: DL.ED 23:40
DX: I46.9 Cardiac arrest, cause unspecified (principal); J45.909 Unspecified asthma, uncomplicated; Z79.899 Other long term (current) drug therapy; Z86.16 Personal history of COVID-19
CPT/HCPCS: 31500; 92950; 96374; 99285-25